=== PATIENT | female | born 1960 | race Caucasian/White ===

== ENCOUNTER → 2017-03-14 | Outpatient (CLI) | payer OTHER ==
--- NOTE | 2017-03-14 12:26 | XR ---
Lumbosacral spine HISTORY: Low back pain, M [age] views of the lumbosacral spine correlated to prior exam 08/26/2011, CT 05/02/2003 Bone mineralization is reduced and stable. There is no evident spondylolysis or spondylolisthesis. Th ere is multilevel spondylosis. Some loss of disc height L3-4. Sclerosis present in the posterior [place] ents of the lower lumbar spine. There are vascular calcifications present. There is an indeterminate calcification present within the pelvis which is only partially visualized and may measure as great a s 5-6 cm correlating to a fibroid calcification. IMPRESSION: Degenerative disc disease and osteopenia. Facet arthropathy. Additional findings above.
== END | disposition home or self-care (01) ==
LOC: RADXRMAIN 09:49
PROVIDERS: ATTEND Family Medicine
DX: M51.37 Other intervertebral disc degeneration, lumbosacral region (principal); M85.80 Other specified disorders of bone density and structure, unspecified site; M46.07 Spinal enthesopathy, lumbosacral region
CPT/HCPCS: 72110

== ENCOUNTER → 2017-05-04 | Outpatient (CLI) | payer BC ==
--- NOTE | 2017-05-04 20:30 | MR ---
EXAMINATION TYPE: MR lumbar spine wo con DATE OF EXAM: 05/04/2017 COMPARISON: Lumbar spine x-ray March 14, 2017 and older lumbar spine x-ray August 26, 2011. HISTORY: LOW BACK PAIN per order. Back pain for about 6 months per patient. TECHNIQUE: Multiplanar, multisequence imaging of the lumbar spine is performed without IV contrast. FINDINGS: On survey imaged there is oval well-circumscribed lesion with rim low intensity corresponds to calcified left pelvic mass of uncertain etiology not significantly changed from 2012 radiographs suggests it is benign. Clinical correlation advised. Sagittal images of the lumbar spine show vertebral body heights and alignment to appear satisfactory. Multilevel small Schmorl nodes are seen. Multilevel disc desiccation is present but disc space heigh ts are fairly well-maintained. No large posterior disc herniations are seen on sagittal images The c onus medullaris is normal in position and signal ending at T12-L1 disc space level. There is overall heterogeneity with mild to moderate multilevel anterior spurring. Axial images at the T12-L1 and L1-L2 levels shows mild facet degenerative changes bilaterally otherwi se is felt within normal limits. Axial images at L2-L3 level shows broad-based posterior disc protrusion and mild facet degenerative c hanges and ligamentum flavum hypertrophy, there is some effacement the posterior lateral thecal sac. Bilateral neural foramina remain patent. Axial images at L3-L4 level show broad-based posterior disc protrusion mildly effacing anterior theca l sac. There is mild facet degenerative changes and ligament flavum hypertrophy effacing the posterio r lateral thecal sac. Bilateral neural foramina remain patent. Axial images at L4-L5 level show mild to moderate facet degenerative changes and ligamentum flavum hy pertrophy. There is broad disc bulge with central disc protrusion component minimally effacing anteri or thecal sac. Bilateral neural foramina are patent. Axial images at L5-S1 level show mild facet degenerative changes bilaterally. Spinal canal is preserv ed. Bilateral neural foramina are patent. No suspicious retroperitoneal findings are seen. Paraspinal muscle bulk is maintained. IMPRESSION: Multilevel degenerative changes in the lumbar spine most prominent in mid to lower lumbar levels with further details as noted in body of report..
== END | disposition home or self-care (01) ==
LOC: RADMRIMAIN 16:58
PROVIDERS: ATTEND Family Medicine
DX: M47.817 Spondylosis without myelopathy or radiculopathy, lumbosacral region (principal)
CPT/HCPCS: 72148

== ENCOUNTER → 2017-06-29 | Outpatient (CLI) | payer BC, OTHER ==
[2017-06-28 16:00] VITALS: BMI 31.8
[2017-06-29 12:21] VITALS: BP 142/93; PULSE 90; RESP 16
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
== END ==
LOC: PNWHC3 11:32
PROVIDERS: ATTEND Anesthesiology
DX: M51.36 Other intervertebral disc degeneration, lumbar region (principal); M47.816 Spondylosis without myelopathy or radiculopathy, lumbar region; M46.86 Other specified inflammatory spondylopathies, lumbar region; E78.5 Hyperlipidemia, unspecified; F17.200 Nicotine dependence, unspecified, uncomplicated; Z79.899 Other long term (current) drug therapy; Z88.8 Allergy status to other drugs, medicaments and biological substances
CPT/HCPCS: 99211

== ENCOUNTER 2017-10-05 07:43 | Day surgery (SDC) | payer BC, OTHER ==
[2017-09-26 15:50] VITALS: BMI 31.3
[~2017-10-05 07:43] MED LIST: LACTATED RINGERS 1,000 ML IV SCH
[2017-10-05 07:51] VITALS: RESP 16; TEMP 96.8
[2017-10-05] MEDS ORDERED: LIDOCAINE 1% 20 ML VIAL (10MG/ML) FOR IV START INTRADERMA ONE (08:02)
--- NOTE | 2017-10-05 09:14 | P.PCN ---
Date of Procedure: 10/05/17 Procedure(s) Performed: PREOPERATIVE DIAGNOSIS : 1- Lumbar spondylosis with Facet Arthropathy without myelopathy . POSTOPERATIVE DIAGNOSIS: 1- Lumbar spondylosis with Facet Arthropathy without myelopathy . PROCEDURE: Diagnostic bilateral L3 -4 , L4 -5 , and L5-S1 medial branch block under fluoroscopy ANESTHESIA: Local with 1% lidocaine 6 ml , moderate sedation with intravenous Versed 2 mg and Fentanyl 100 mcg. EBL: Minimal COMPLICATION: None. IV FLUIDS: 100 mL of normal saline. PROCEDURE INDICATION: Chronic low back pain secondary to Facet arthropathy unresponsive to conservative treatment. PROCEDURE DESCRIPTION: the patient was seen and identified in the preop holding area , risks and benefits and possible complications of the procedure and alternative were discussed with the patient, and the patient agreed to proceed with the procedure and signed the consent IV was started and vital signs monitored during the procedure and fluoroscopy was used to maximize the benefit and accuracy of the needle placement, and sedation was given to decrease patient anxiety, patient was taken to the procedure room and placed in prone position vital signs monitored in the back prepped with chlorhexidine X3 then under strict sterile technique using a right oblique fluoroscopy ,the junction of the transverse process and the superior articulating process of the right L3- 4 , L4- 5, and L5-S1 vertebra which corresponding to the fluoroscopy image of the eye of the Gerald dog on the block side for the medial branches and subsequently , after local infiltration of skin and subcu tissuies with lidocaine 1% one mL at each level ,then 22- gauge Quincke-type needles , 3 needle was used , each one of them placed at the junction of the base of the transverse process and the superior articular process at the appropriate level, and the needle was advanced until the periosteum contacted, needle placement confirmed with AP oblique and lateral view and after appropriate needle placement confirmed, and after negative aspiration for heme and CSF and there was no paresthesia 1-1/2 mL of Marcaine 0.5% mixed with 40 mg Kenalog , then half mL injected at each level after negative aspiration the needle subsequently removed and the same procedure repeated for the left side at left side at L3-4, L4- 5 and L5-S1 levels. At the end of the procedure and the needles removed and a bandage applied after the skin was cleaned the cleaning solution patient taken to recovery room in stable condition and monitors in the recovery room for 20-30 minutes and discharged home in stable condition after discharge criteria met and patient will follow up with the pain clinic in 2-4 weeks
[2017-10-05] MEDS ORDERED: IV FLUID CONTINUATION 1,000 ML IV ONE (09:18)
--- NOTE | 2017-10-05 09:21 | FL ---
EXAMINATION TYPE: FL guided pain mgmt statistic DATE OF EXAM: 10/05/2017 HISTORY: Flouroscopy time 12 seconds of fluoroscopy provided. IMPRESSION: 1. Fluoroscopy time.
[2017-10-05 09:32] VITALS: BP 123/83; PULSE 78
== END 2017-10-05 09:44 | disposition home or self-care (01) ==
LOC: ORPAIN 07:43
PROVIDERS: ATTEND Specialist
DX: G89.29 Other chronic pain (principal); M47.816 Spondylosis without myelopathy or radiculopathy, lumbar region; Z88.3 Allergy status to other anti-infective agents; Z88.8 Allergy status to other drugs, medicaments and biological substances
CPT/HCPCS: 99152

== ENCOUNTER → 2018-01-08 | Outpatient (CLI) | payer BC, OTHER ==
--- NOTE | 2018-01-08 14:14 | XR ---
Thoracic spine HISTORY: Back pain 3 views of the thoracic spine, correlation to CT scan 08/24/2009 and There is multilevel spondylosis. Thoracic vertebral bodies show preserved alignment. Bone mineralizat ion is reduced. There may be some loss of height at T7. No evident retropulsion, posterior extension of endplate at T10-11 level causes some spinal stenosis on prior CT. Loss of disc height present at t he intervertebral levels. There is a spinal curvature. IMPRESSION: Osteopenia, degenerative disc disease, mild spinal curvature. May be some loss of vertebr al body height is described, bone scan or MRI, CT may be of benefit.
== END | disposition home or self-care (01) ==
LOC: RADXRMAIN 13:37
PROVIDERS: ATTEND Family Medicine
DX: M51.34 Other intervertebral disc degeneration, thoracic region (principal); M85.80 Other specified disorders of bone density and structure, unspecified site
CPT/HCPCS: 72072

== ENCOUNTER 2018-01-31 22:10 | Emergency (ER) | payer BC, OTHER ==
--- NOTE | 2018-01-31 23:28 | ED ---
Upper Extremity HPI - General Chief Complaint: Extremity Injury, Upper Stated Complaint: rt shoulder pain Time Seen by Provider: 01/31/18 22:39 Source: patient Mode of arrival: ambulatory Limitations: no limitations - History of Present Illness Initial Comments: This patient is 57-year-old woman who presents to be evaluated for right shoulder pain. She states that she was making her bed around 10 AM when she felt she pulled a muscle in her shoulder. She states she had thrown the blanket in the air, and then experienced pain and she indicates the right trapezius area. She states over the course the day it has become very tight and she has pain which tries to move her arm. No weakness or numbness to the right arm. Complaint: Injury to:: right, shoulder Onset/Timin -: hour(s) Other Extremity Injury: Shoulder: Right Other Injuries: none Handedness: right Place: home Improves With: immobilization Worsens With: movement of extremity Context: other Associated Symptoms: denies other symptoms - Related Data Home Medications Medication Instructions Recorded Confirmed Ibuprofen [Motrin] 600 mg PO Q8HR PRN 04/18/15 01/31/18 Levothyroxine Sodium [Synthroid] 175 mcg PO MOTUWETHFRSA 04/18/15 01/31/18 HYDROcodone/APAP 7.5-325MG [[place] 1 tab PO Q4H PRN 06/28/17 01/31/18 7.5-325] Cyclobenzaprine [Flexeril] 10 mg PO HS PRN 07/28/17 01/31/18 Simvastatin [Zocor] 40 mg PO HS 01/31/18 01/31/18 Ubidecarenone [Co Q-10] 100 mg PO HS 01/31/18 01/31/18 Previous Rx's Medication Instructions Recorded Cyclobenzaprine [Flexeril] 10 mg PO TID #15 tab 01/31/18 Ibuprofen [Motrin] 600 mg PO Q8HR PRN #20 tab 01/31/18 Allergies Allergy/AdvReac Type Severity Reaction Status Date / Time mupirocin [From Bactroban] Allergy Rash/Hives Verified 01/31/18 22:35 Review of Systems ROS Statement: Those systems with pertinent positive or pertinent negative responses have been documented in the HPI. ROS Other: All systems not noted in ROS Statement are negative. Constitutional: Denies: fever, chills, weakness Respiratory: Denies: cough, dyspnea Cardiovascular: Denies: chest pain Musculoskeletal: Reports: arthralgia, myalgia. Denies: back pain Skin: Denies: rash Neurological: Denies: weakness, numbness, paresthesias Past Medical History Past Medical History: Cancer, Hyperlipidemia, Thyroid Disorder Additional Past Medical History / Comment(s): pain to neck and back,carpel tunnel,CA cervix-no chemo or rad History of Any Multi-Drug Resistant Organisms: None Reported Past Surgical History: Tubal Ligation Additional Past Surgical History / Comment(s): carpal tunnel,partial thyroidectomy,hysteroscopy Past Anesthesia/Blood Transfusion Reactions: No Reported Reaction Past Psychological History: No Psychological Hx Reported Smoking Status: Current every day smoker - Past Family History Mother Family Medical History: Cancer Additional Family Medical History / Comment(s): skin Father Family Medical History: Cancer Additional Family Medical History / Comment(s): skin General Exam Limitations: no limitations General appearance: alert, in no apparent distress Neck exam: Present: normal inspection, full ROM. Absent: tenderness, meningismus Cardiovascular Exam: Present: other (Radial pulses and capillary refill normal) Extremities exam: Present: normal inspection, normal capillary refill Right Shoulder Exam: Present: tenderness, other (Patient has tenderness and increased tone to the right trapezius muscle. Palpation here reproduces her pain. Range of motion which stretches the trapezius does reproduce the pain. No bony tenderness or deformity). Absent: swelling, abrasion, laceration, ecchymosis, deformity, crepitus, dislocation Upper Arm exam: Present: normal inspection, full ROM. Absent: tenderness, swelling Elbow exam: Present: normal inspection, full ROM. Absent: tenderness, swelling Forearm Wrist exam: Present: normal inspection, full ROM. Absent: tenderness, swelling Hand Wrist exam: Present: normal inspection, full ROM. Absent: tenderness, swelling Neurosensory exam: Present: radial nerve intact, ulnar nerve intact, median nerve intact Vascular: Absent: vascular compromise Back exam: Absent: CVA tenderness (R), CVA tenderness (L), vertebral tenderness Neurological exam: Present: alert Skin exam: Present: warm, dry, intact, normal color. Absent: rash Course Vital Signs 01/31/18 22:22 Temperature 98.3 F Pulse Rate 84 Respiratory 20 Rate Blood Pressure 108/78 O2 Sat by Pulse 98 Oximetry Disposition Clinical Impression: Muscle strain Disposition: HOME SELF-CARE Condition: Good Prescriptions: Cyclobenzaprine [Flexeril] 10 mg PO TID #15 tab Ibuprofen [Motrin] 600 mg PO Q8HR PRN #20 tab PRN Reason: Pain Is patient prescribed a controlled substance at d/c from ED?: No Referrals: Jacob Santamaria DO [Primary Care Provider] - 1-2 days
--- NOTE | 2018-01-31 23:34 | XR ---
EXAMINATION TYPE: XR shoulder complete RT DATE OF EXAM: 01/31/2018 COMPARISON: NONE HISTORY: Right shoulder pain TECHNIQUE: 3 views FINDINGS: I see no fracture nor dislocation. Joint spaces are normal. There are no pathologic calcifi cations. IMPRESSION: Negative right shoulder exam.
[2018-01-31 23:43] VITALS: BP 113/57; PULSE 86; RESP 16; TEMP 97.6
== END 2018-01-31 23:43 | disposition home or self-care (01) ==
LOC: EC 22:10
DX: S46.911A Strain of unspecified muscle, fascia and tendon at shoulder and upper arm level, right arm, initial encounter (principal); E78.5 Hyperlipidemia, unspecified; E07.9 Disorder of thyroid, unspecified; F17.200 Nicotine dependence, unspecified, uncomplicated; Z85.42 Personal history of malignant neoplasm of other parts of uterus; Z79.899 Other long term (current) drug therapy; Z88.8 Allergy status to other drugs, medicaments and biological substances; X50.9XXA Other and unspecified overexertion or strenuous movements or postures, initial encounter
CPT/HCPCS: 99283

== ENCOUNTER → 2018-02-27 | Outpatient (CLI) | payer BC, OTHER ==
--- NOTE | 2018-02-27 15:37 | XR ---
Right shoulder and right clavicle HISTORY: Pain 3 views of the right shoulder, 2 views of the right clavicle submitted and correlated to prior right shoulder 01/31/2018 There is no significant change. Arthropathy present at the acromioclavicular joint. Right lung apex a s visualized is normal. There is no fracture or dislocation. IMPRESSION: Acromioclavicular joint arthropathy.
== END | disposition home or self-care (01) ==
LOC: RADXRMAIN 13:51
PROVIDERS: ATTEND Family Medicine
DX: M19.011 Primary osteoarthritis, right shoulder (principal)

== ENCOUNTER → 2018-05-10 | Outpatient (CLI) | payer BC, OTHER ==
--- NOTE | 2018-05-11 11:28 | XR ---
Cervical spine HISTORY: Neck pain 5 views of the cervical spine and 6 images Comparison cervical spine CT 08/26/2011 Spondylosis is present at C5-6-6 7 with associated loss of disc height. Cervical vertebral bodies gabe w preserved height, alignment, and bone mineralization. Facet arthropathy changes are present. Latera l extension of endplate disc complex bilaterally at C5-6, C6-7 on the right cause foraminal encroachm ent. Patient is edentulous. Prevertebral soft tissues show some carotid artery calcification. IMPRESSION: Degenerative disc disease. Cervical MRI or CT may be of benefit.
== END | disposition home or self-care (01) ==
LOC: RADXRMAIN 15:54
PROVIDERS: ATTEND Family Medicine
DX: M51.36 Other intervertebral disc degeneration, lumbar region (principal)
CPT/HCPCS: 72050

== ENCOUNTER 2018-10-06 23:07 | Emergency (ER) | payer BC, OTHER ==
--- NOTE | 2018-10-06 23:33 | ED ---
Fall HPI - General Chief Complaint: Fall Stated Complaint: FALL,ARM PAIN Time Seen by Provider: 10/06/18 23:17 Source: patient Mode of arrival: ambulatory - History of Present Illness Initial Comments: Jimena is a pleasant 58-year-old female presents the emergency department today for evaluation of left wrist, left elbow left-sided rib pain. Patient reports that last Monday she had a slip and fall on the ice in which she struck her left elbow and left wrist and hit the left side of her ribs. Patient reports that Monday she again slipped and fell on the ice falling onto her left side. Patient reports that she's been taking her home dose of [place] for her chronic pain but continues to have pain in her left ribs. Patient reports that today she noticed some swelling over her left rib and was concerned she may have a rib fracture she states she came to the ER to make sure there is nothing broken that would puncture her lungs. - Related Data Home Medications Medication Instructions Recorded Confirmed Ibuprofen [Motrin] 600 mg PO Q8HR PRN 04/18/15 10/06/18 Levothyroxine Sodium [Synthroid] 175 mcg PO MOTUWETHFRSA 04/18/15 10/06/18 HYDROcodone/APAP 7.5-325MG [[place] 1 tab PO Q6H PRN 06/28/17 10/06/18 7.5-325] Simvastatin [Zocor] 40 mg PO HS 01/31/18 10/06/18 Ubidecarenone [Co Q-10] 100 mg PO HS 01/31/18 10/06/18 Albuterol Inhaler [Ventolin Hfa 2 puff INHALATION RT-Q6H PRN 10/06/18 10/06/18 Inhaler] Baclofen [Lioresal] 10 mg PO TID 10/06/18 10/06/18 FLUoxetine HCL [PROzac] 10 mg PO DAILY 10/06/18 10/06/18 Previous Rx's Medication Instructions Recorded Lidocaine 5% Patch [Lidoderm] 1 patch TOPICAL DAILY #30 patch 10/07/18 Allergies Allergy/AdvReac Type Severity Reaction Status Date / Time mupirocin [From Bactroban] Allergy Rash/Hives Verified 10/06/18 23:31 Review of Systems ROS Statement: Those systems with pertinent positive or pertinent negative responses have been documented in the HPI. ROS Other: All systems not noted in ROS Statement are negative. Past Medical History Past Medical History: Cancer, Hyperlipidemia, Thyroid Disorder Additional Past Medical History / Comment(s): pain to neck and back,carpel tunnel,CA cervix-no chemo or rad History of Any Multi-Drug Resistant Organisms: None Reported Past Surgical History: Tubal Ligation Additional Past Surgical History / Comment(s): carpal tunnel,partial thyroidectomy,hysteroscopy Past Anesthesia/Blood Transfusion Reactions: No Reported Reaction Past Psychological History: No Psychological Hx Reported Smoking Status: Current every day smoker Past Alcohol Use History: None Reported Past Drug Use History: None Reported - Past Family History Mother Family Medical History: Cancer Additional Family Medical History / Comment(s): skin Father Family Medical History: Cancer Additional Family Medical History / Comment(s): skin General Exam - General Exam Comments Initial Comments: Physical Exam GENERAL: Patient is well-developed and well-nourished. Patient is nontoxic and well- hydrated and is in no distress. HENT: Normocephalic, Atraumatic. EYES: PERRL, EOMI PULMONARY: Unlabored respirations. No audible rales rhonchi or wheezing was noted. CARDIOVASCULAR: There is a regular rate and rhythm without any murmurs gallops or rubs. ABDOMEN: Soft and nontender with normal bowel sounds. SKIN: Skin is clear with no lesions or rashes and otherwise unremarkable. contusion over left elbow : Deferred NEUROLOGIC: Patient is alert and oriented x3. Moving all extremities spontaneously MUSCULOSKELETAL: Normal extremities with adequate strength and full range of motion. No lower extremity swelling or edema. No calf tenderness. PSYCHIATRIC: Normal psychiatric evaluation. Limitations: no limitations Limitations: no limitations Course Vital Signs 10/06/18 23:12 Temperature 98.2 F Pulse Rate 90 Respiratory 18 Rate Blood Pressure 150/79 O2 Sat by Pulse 98 Oximetry Medical Decision Making - Medical Decision Making patient was seen and evaluated history was obtained from the patient Patient with 2 falls earlier in the week with persistent pain in her left elbow wrist as well as pain in her left ribs Physical exam reveals bruising over the left elbow, full range of motion of the elbow and wrist normal strength and normal sensation X-rays were orderedAnd revealed no acute fractures Lidoderm patch was applied Patient with bruising will be prescribed Lidoderm patches. All questions pertaining care were answered return parameters discussed patient discharged home in stable condition Disposition Clinical Impression: Fall Disposition: HOME SELF-CARE Condition: Stable Instructions (If sedation given, give patient instructions): Fall Prevention for Older Adults (ED) Prescriptions: Lidocaine 5% Patch [Lidoderm] 1 patch TOPICAL DAILY #30 patch Is patient prescribed a controlled substance at d/c from ED?: No Referrals: Jacob Santamaria DO [Primary Care Provider] - 1-2 days
[2018-10-06] MEDS ORDERED: LIDOCAINE 5% PATCH TOPICAL STA (23:41)
--- NOTE | 2018-10-07 00:01 | XR ---
EXAM: XR Left Ribs, 2 Views CLINICAL HISTORY: ITS.REASON XR Reason: fall on ice, pain TECHNIQUE: Frontal and oblique views of the left ribs. COMPARISON: No relevant prior studies available. FINDINGS: Lungs: Unremarkable as visualized. No consolidation. Pleural space: Unremarkable. No pneumothorax. Bones/joints: Unremarkable. No acute fracture. IMPRESSION: Normal left rib x-rays.
--- NOTE | 2018-10-07 00:10 | XR ---
EXAM: XR Left Wrist Complete, 3 or More Views CLINICAL HISTORY: ITS.REASON XR Reason: fall on ice, pain TECHNIQUE: Frontal, lateral and oblique views of the left wrist. COMPARISON: No relevant prior studies available. FINDINGS: Bones/joints: Positive ulnar variance. No radiographic changes related to ulnolunate abutment. No acute or healing fracture or malalignment. Joint spaces are maintained otherwise. Soft tissues: No focal soft tissue abnormalities. No radiopaque foreign body. IMPRESSION: No acute or healing fracture or malalignment.
--- NOTE | 2018-10-07 00:11 | XR ---
EXAM: XR Left Elbow Complete, 3 or More Views CLINICAL HISTORY: ITS.REASON XR Reason: fall on ice, pain TECHNIQUE: Frontal, lateral and oblique views of the left elbow. COMPARISON: No relevant prior studies available. FINDINGS: Bones/joints: Unremarkable. No acute fracture. No dislocation. Soft tissues: Unremarkable. IMPRESSION: Normal left elbow x-rays.
[2018-10-07 01:10] VITALS: BP 122/75; PULSE 74; RESP 16; TEMP 97.9
== END 2018-10-07 01:08 | disposition home or self-care (01) ==
LOC: EC 23:07
DX: S50.02XA Contusion of left elbow, initial encounter (principal); R22.2 Localized swelling, mass and lump, trunk; M25.532 Pain in left wrist; R07.81 Pleurodynia; E78.5 Hyperlipidemia, unspecified; E07.9 Disorder of thyroid, unspecified; G89.29 Other chronic pain; F17.200 Nicotine dependence, unspecified, uncomplicated; Z88.1 Allergy status to other antibiotic agents; Z79.890 Hormone replacement therapy; Z79.891 Long term (current) use of opiate analgesic; Z79.899 Other long term (current) drug therapy; Z85.41 Personal history of malignant neoplasm of cervix uteri; Z90.710 Acquired absence of both cervix and uterus; W00.0XXA Fall on same level due to ice and snow, initial encounter
CPT/HCPCS: 99283

== ENCOUNTER → 2018-10-15 | Outpatient (CLI) | payer BC, OTHER ==
--- NOTE | 2018-10-16 09:24 | MM ---
Reason for exam: screening (asymptomatic). Last mammogram was performed 2 years and 7 months ago. History: Patient is postmenopausal and has history of other cancer at age 40. Family history of breast cancer in paternal aunt and breast cancer in maternal aunt. Physical Findings: A clinical breast exam by your physician is recommended on an annual basis and results should be correlated with mammographic findings. MG Screening Mammo w CAD Bilateral CC and MLO view(s) were taken. Prior study comparison: March 08, 2016, bilateral MG screening mammo w CAD. December 22, 2008, bilateral digital screening mammogram. The breast tissue is heterogeneously dense. This may lower the sensitivity of mammography. There are benign appearing round calcifications in the right breast. There is no discrete abnormality. ASSESSMENT: Benign, BI-RAD 2 RECOMMENDATION: Routine screening mammogram of both breasts in 1 year.
== END | disposition home or self-care (01) ==
LOC: RADMAMWWP 10:50
PROVIDERS: ATTEND Family Medicine
DX: Z12.31 Encounter for screening mammogram for malignant neoplasm of breast (principal)
CPT/HCPCS: 77067

== ENCOUNTER 2018-12-26 07:36 | Day surgery (SDC) | payer BC, OTHER ==
[2018-12-24 16:05] VITALS: BMI 32.3
[~2018-12-26 07:36] MED LIST changes: +LIDOCAINE 1% 20 ML VIAL (10MG/ML) FOR IV START INTRADERMA PRN
--- NOTE | 2018-12-26 07:40 | P.GSHP ---
History of Present Illness H&P Date: 12/26/18 CHIEF COMPLAINT: Colon screen HISTORY OF PRESENT ILLNESS: The patient is a 58-year-old female who presents for colon screen. Lower endoscopy was offered for further evaluation and management. PAST MEDICAL HISTORY: Please see list. PAST SURGICAL HISTORY: Please see list. MEDICATIONS: Please see list. ALLERGIES: Please see list. SOCIAL HISTORY: No illicit drug use FAMILY HISTORY: No reports of Crohn disease or ulcerative colitis. REVIEW OF ORGAN SYSTEMS: CONSTITUTIONAL: No reports of fevers or chills. PHYSICAL EXAM: VITAL SIGNS: Stable GENERAL: Well-developed pleasant in no acute distress. HEENT: No scleral icterus. Extraocular movements grossly intact. Moist buccal mucosa. NECK: Supple without lymphadenopathy. CHEST: Unlabored respirations. Equal bilateral excursions. CARDIOVASCULAR: Regular rate and rhythm. Distal 2+ pulses. ABDOMEN: Soft, nontender, nondistended. MUSCULOSKELETAL: No clubbing, cyanosis, or edema. ASSESSMENT: 1. Colon screen. PLAN: 1. Recommend proceeding with a lower endoscopy Past Medical History Past Medical History: Cancer, COPD, Hyperlipidemia, Thyroid Disorder Additional Past Medical History / Comment(s): pain to neck and back,carpal tunnel,CA cervix-no chemo or rad History of Any Multi-Drug Resistant Organisms: None Reported Past Surgical History: Orthopedic Surgery, Tubal Ligation Additional Past Surgical History / Comment(s): debbie carpal tunnel,partial thyroidectomy,hysteroscopy,LEEP Past Anesthesia/Blood Transfusion Reactions: No Reported Reaction Smoking Status: Current every day smoker - Past Family History Mother Family Medical History: Cancer Additional Family Medical History / Comment(s): skin Father Family Medical History: Cancer Additional Family Medical History / Comment(s): skin Medications and Allergies Home Medications Medication Instructions Recorded Confirmed Type Ibuprofen [Motrin] 600 mg PO Q8HR PRN 04/18/15 12/24/18 History Levothyroxine Sodium [Synthroid] 175 mcg PO MOTUWETHFRSA 04/18/15 12/24/18 History HYDROcodone/APAP 7.5-325MG [[place] 1 tab PO Q6H PRN 06/28/17 12/24/18 History 7.5-325] Simvastatin [Zocor] 40 mg PO HS 01/31/18 12/24/18 History Ubidecarenone [Co Q-10] 100 mg PO HS 01/31/18 12/24/18 History Albuterol Inhaler [Ventolin Hfa 2 puff INHALATION RT-Q6H PRN 10/06/18 12/24/18 History Inhaler] Baclofen [Lioresal] 10 mg PO TID PRN 10/06/18 12/24/18 History FLUoxetine HCL [PROzac] 10 mg PO DAILY 10/06/18 12/24/18 History Budesonide-Formot 160-4.5 Mcg 2 puff INHALATION BID PRN 12/24/18 12/24/18 History [Symbicort 160-4.5 Mcg Inhaler] Allergies Allergy/AdvReac Type Severity Reaction Status Date / Time mupirocin [From Bactroban] Allergy Rash/Hives Verified 12/24/18 15:58
[2018-12-26 08:16] VITALS: TEMP 96.9
[2018-12-26] MEDS ORDERED: GLYCOPYRROLATE 0.2 MG/ML 2 ML VIAL ONE (08:51)
[2018-12-26] MEDS ORDERED: PROPOFOL 10 MG/ML 20 ML VIAL IV ONE (08:51)
--- NOTE | 2018-12-26 09:25 | P.PCN ---
Date of Procedure: 12/26/18 Description of Procedure: PREOPERATIVE DIAGNOSIS: Colonoscopy screening, first POSTOPERATIVE DIAGNOSIS: Colonoscopy screening, first Malignant tubulovillous adenoma, hepatic flexure OPERATION: Colonoscopy to the ileocecal valve and appendiceal orifice. Colonoscopy with hot snare polypectomy, hepatic flexure SURGEON: Tarah Bush MD. ANESTHESIA: MAC. INDICATIONS: The patient is a 58 year-old female who presents for her first colonoscopy screening. Benefits and risks were described and informed consent was obtained. DESCRIPTION OF PROCEDURE: The patient had undergone Gatorade, MiraLAX and Dulcolax prep. She had been brought into the operating room and laid in the left lateral decubitus position. After adequate intravenous sedation, the rectum was examined with 2% lidocaine jelly. External hemorrhoids were encountered. The rectal tone was within normal limits. No lesions were palpated in the rectal vault. An Olympus colonoscope was advanced until the ileocecal valve and appendiceal orifice were clearly viewed. The prep was fair with visualization of the mucosal folds. The scope was removed with visualization of each mucosal fold. No scattered diverticulosis was encountered. Large flat tubulovillous adenoma at hepatic flexure, 1.5 cm snare polypectomy. No evidence of focal colitis was found. Retroflexion of the scope demonstrated no internal hemorrhoids. The colon was desufflated. The patient had tolerated the procedure well. Withdrawal time was over 6 minutes. FINDINGS: Aronchick preparation quality scale 2 (1-5) No internal hemorrhoids External hemorrhoids, stage 2 No arteriovenous malformations. No sigmoid diverticulosis Removal of 1 polyp: - Large flat tubulovillous adenoma at hepatic flexure, 1.5 cm snare polypectomy. No focal colitis. RECOMMENDATIONS: High-risk for high risk for malignancy of the hepatic flexure tumor, recommend repeat one year2019 pending biopsy results Plan - Discharge Summary Discharge Rx Participant: No New Discharge Prescriptions: No Action Levothyroxine Sodium [Synthroid] 175 mcg PO MOTUWETHFRSA Ibuprofen [Motrin] 600 mg PO Q8HR PRN PRN Reason: Pain HYDROcodone/APAP 7.5-325MG [[place] 7.5-325] 1 tab PO Q6H PRN PRN Reason: Pain Ubidecarenone [Co Q-10] 100 mg PO HS Simvastatin [Zocor] 40 mg PO HS FLUoxetine HCL [PROzac] 10 mg PO DAILY Baclofen [Lioresal] 10 mg PO TID PRN PRN Reason: Pain Albuterol Inhaler [Ventolin Hfa Inhaler] 2 puff INHALATION RT-Q6H PRN PRN Reason: Shortness Of Breath Budesonide-Formot 160-4.5 Mcg [Symbicort 160-4.5 Mcg Inhaler] 2 puff INHALATION BID PRN PRN Reason: Shortness Of Breath Discharge Medication List Ibuprofen [Motrin] 600 mg PO Q8HR PRN 04/18/15 [History] Levothyroxine Sodium [Synthroid] 175 mcg PO MOTUWETHFRSA 04/18/15 [History] HYDROcodone/APAP 7.5-325MG [[place] 7.5-325] 1 tab PO Q6H PRN 06/28/17 [History] Simvastatin [Zocor] 40 mg PO HS 01/31/18 [History] Ubidecarenone [Co Q-10] 100 mg PO HS 01/31/18 [History] Albuterol Inhaler [Ventolin Hfa Inhaler] 2 puff INHALATION RT-Q6H PRN 10/06/18 [History] Baclofen [Lioresal] 10 mg PO TID PRN 10/06/18 [History] FLUoxetine HCL [PROzac] 10 mg PO DAILY 10/06/18 [History] Budesonide-Formot 160-4.5 Mcg [Symbicort 160-4.5 Mcg Inhaler] 2 puff INHALATION BID PRN 12/24/18 [History] Follow up Appointment(s)/Referral(s): Tarah Bush MD [STAFF PHYSICIAN] - 01/16/19 Patient Instructions/Handouts: Colorectal Polyps (DC) Activity/Diet/Wound Care/Special Instructions: Liquid diet today. Regular diet tomorrow. Repeat colonoscopy 1 year, 2019 Discharge Disposition: HOME SELF-CARE
[2018-12-26 09:38] VITALS: BP 104/69; PULSE 73; RESP 18
== END 2018-12-26 10:17 | disposition home or self-care (01) ==
LOC: ORWHC2ENDO 07:36
PROVIDERS: ATTEND Surgery Plastic and Reconstructive Surgery
DX: Z12.11 Encounter for screening for malignant neoplasm of colon (principal); D12.3 Benign neoplasm of transverse colon; E07.9 Disorder of thyroid, unspecified; E78.5 Hyperlipidemia, unspecified; F17.200 Nicotine dependence, unspecified, uncomplicated; J44.9 Chronic obstructive pulmonary disease, unspecified; K64.4 Residual hemorrhoidal skin tags; Z79.890 Hormone replacement therapy; Z79.899 Other long term (current) drug therapy; Z79.891 Long term (current) use of opiate analgesic; Z79.51 Long term (current) use of inhaled steroids; Z88.1 Allergy status to other antibiotic agents; F32.9 Major depressive disorder, single episode, unspecified
CPT/HCPCS: 88305; 45385; J2704

== ENCOUNTER → 2019-10-18 | Outpatient (CLI) | payer OTHER ==
--- NOTE | 2019-10-18 15:14 | XR ---
Left wrist HISTORY: Left wrist pain 4 views of the left wrist, correlation to prior exam 10/06/2018 Bone mineralization, joint spaces and alignment are maintained. No fracture or dislocation. Mild oste oarthritis present at the carpometacarpal joint of the first digit as on prior exam. Some remodeling present at the radiocarpal joint. IMPRESSION: Mild osteoarthritis. Wrist MRI may be of benefit.
== END | disposition home or self-care (01) ==
LOC: RAD 14:13
PROVIDERS: ATTEND Family Medicine
DX: M19.032 Primary osteoarthritis, left wrist (principal)

== ENCOUNTER → 2021-04-14 | Outpatient (CLI) | payer OTHER ==
[2021-04-14 08:52] VITALS: BP 154/89; PULSE 98; RESP 18; TEMP 99
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
== END ==
LOC: PNWHC3 08:42
PROVIDERS: ATTEND Anesthesiology
DX: G89.29 Other chronic pain (principal); M54.5 Low back pain; M79.18 Myalgia, other site; E78.5 Hyperlipidemia, unspecified; M19.90 Unspecified osteoarthritis, unspecified site; F41.9 Anxiety disorder, unspecified; F17.210 Nicotine dependence, cigarettes, uncomplicated; Z79.890 Hormone replacement therapy; Z79.1 Long term (current) use of non-steroidal anti-inflammatories (NSAID); Z88.8 Allergy status to other drugs, medicaments and biological substances
CPT/HCPCS: 99211

== ENCOUNTER → 2021-04-23 | Outpatient (CLI) | payer OTHER ==
--- NOTE | 2021-04-27 16:16 | MR ---
EXAMINATION TYPE: MR cervical spine wo con DATE OF EXAM: 04/23/2021 COMPARISON: HISTORY: Neck pain, headaches, BUE radiculopathy. CONTRAST: None TECHNIQUE: Multiplanar multiecho imaging on a 3.0 Laura magnet is performed through the cervical spin e. FINDINGS: The craniovertebral junction is normal. Vertebral body alignment is normal. Diffuse disc desiccation is present throughout the cervical spine. C7-T1: No focal disc herniation or significant disc bulge is evident. No spinal canal stenosis or n eural foraminal stenosis is present. C6-7: Broad-based disc bulge is present with mild anterior thecal sac flattening. No AP spinal canal stenosis is present. There is moderate bilateral foraminal narrowing due to uncovertebral joint hyper trophy. C5-6: There is a moderate-sized left paracentral disc herniation with moderate anterior thecal sac co mpression. Cord contact and mild cord deformity is present. Mild to moderate AP spinal canal stenosis is present measuring 0.6 cm posterior to the disc herniation. No spinal cord signal abnormality is e vident. C4-5: There is a small central to right paracentral bulge with mild to moderate anterior thecal sac c ompression. Some cord deformity appears to be present although no cord contact is evident during this exam. Moderate to severe bilateral foraminal stenosis present. C3-4: No focal disc herniation or significant disc bulge is evident. No spinal canal stenosis or abel ral foraminal stenosis is present. C2-3: No focal disc herniation or significant disc bulge is evident. No spinal canal stenosis or abel ral foraminal stenosis is present. IMPRESSIONS: 1. C5-6 Moderate left paracentral disc herniation with moderate anterior thecal sac compression and m ild to moderate cord deformity. Spinal canal stenosis. 2. Small right paracentral disc bulge with mild to moderate thecal sac compression at C4-5. Some cord deformity is present although no cord contact is evident. 3. Broad-based disc bulge with mild thecal sac compression at C6-7. 4. Multilevel moderate to severe bilateral foraminal stenosis
== END | disposition home or self-care (01) ==
LOC: RADMRIMAIN 20:39
PROVIDERS: ATTEND Family Medicine
DX: M48.02 Spinal stenosis, cervical region (principal); M50.123 Cervical disc disorder at C6-C7 level with radiculopathy; M99.71 Connective tissue and disc stenosis of intervertebral foramina of cervical region
CPT/HCPCS: 72141

== ENCOUNTER 2021-11-17 08:46 | Day surgery (SDC) | payer OTHER ==
--- NOTE | 2021-11-15 10:20 | P.HPOR ---
History of Present Illness H&P Date: 11/15/21 Chief Complaint: Right index finger volar soft tissue mass Age: 61 year Height: 5' Weight: 164 lbs BMI: 32.03 kg/m2 Subjective: This is a 61 year old female that presents today for initial evaluation regarding a right index finger lump that has been present for 4 months. The mass is located on the volar surface of the distal portion of the index finger and is painful during pinching movements. She denies any prior injury and denies any recent injury. Physical Examination: RUE: AIN/PIN/Radial/Ulnar/Median motor intact. Radial/Ulnar/Median SILT. 2+/4 Radial/Ulnar pulses palpated. 5/5 APB, 5/5 FDI. Negative Finkelsteins, negative CMC grind, negative Durkan's compression. 3mm x 3mm round mobile soft tissue mass on volar surface of index finger. Imaging: X-Rays of the right index finger demonstrate no acute osseus abnormality. Impression: 1.) Right index finger volar soft tissue mass Plan: Diagnosis and treatment options were discussed with the patient. She would like to have the mass excised since it is causing her pain discomfort. Risks and benefits of surgery including bleeding, infection, damage to surrounding tissue, need for further surgery, recurrence were discussed and the patient wished to go forward with surgery. She will be scheduled for soft tissue mass excision of right index finger in the near future. -Praful Torres DO Orthopedic Hand/Upper Extremity Surgeon Past Medical History Past Medical History: Cancer, Hyperlipidemia, Musculoskeletal Disorder, Osteoarthritis (OA), Thyroid Disorder Additional Past Medical History / Comment(s): Chronic pain to neck and back, carpel tunnel, hx cervical cancer -no chemo or radiation, having MRI 04/23/21, Osteopenia. History of Any Multi-Drug Resistant Organisms: None Reported Past Surgical History: Tubal Ligation Additional Past Surgical History / Comment(s): Carpal tunnel surgey, partial thyroidectomy, hysteroscopy. Past Anesthesia/Blood Transfusion Reactions: No Reported Reaction Past Psychological History: Anxiety Smoking Status: Current every day smoker Past Alcohol Use History: None Reported Additional Past Alcohol Use History / Comment(s): Started smoking at age 14, TRYING TO QUIT, down to 4 cigarettes per day. Past Drug Use History: None Reported - Past Family History Mother Family Medical History: Cancer Additional Family Medical History / Comment(s): Skin Cancer. Father Family Medical History: Cancer Additional Family Medical History / Comment(s): Skin Cancer. Medications and Allergies Home Medications Medication Instructions Recorded Confirmed Type Ibuprofen [Motrin] 600 mg PO Q8HR PRN 04/18/15 04/13/21 History Levothyroxine Sodium [Synthroid] 175 mcg PO DAILY 04/18/15 04/13/21 History Simvastatin [Zocor] 40 mg PO HS 01/31/18 04/13/21 History Ubidecarenone [Co Q-10] 100 mg PO HS 01/31/18 04/13/21 History Albuterol Inhaler (Mhu) [Ventolin 2 puff INHALATION RT-Q6H PRN 10/06/18 04/13/21 History Hfa Inhaler] FLUoxetine HCL [PROzac] 10 mg PO DAILY 10/06/18 04/13/21 History Budesonide-Formot 160-4.5 Mcg 2 puff INHALATION BID PRN 12/24/18 04/13/21 History [Symbicort 160-4.5 Mcg Inhaler] Cholecalciferol [Vitamin D3 (25 50 mcg PO DAILY 04/13/21 04/13/21 History Mcg = 1000 Iu)] Cyclobenzaprine [Flexeril] 5 mg PO TID PRN 30 Days #90 tablet 04/14/21 Rx Meloxicam [Mobic] 7.5 mg PO DAILY 30 Days #30 tab 04/14/21 Rx Allergies Allergy/AdvReac Type Severity Reaction Status Date / Time mupirocin [From Bactroban] Allergy Rash/Hives Verified 04/13/21 11:43 Physical Examination Osteopathic Statement: *. No significant issues noted on an osteopathic structural exam other than those noted in the History and Physical/Consult.
[2021-11-15 15:24] VITALS: BMI 31.8
[~2021-11-17 08:46] MED LIST changes: +CLINDAMYCIN 600 MG/50 ML-D5W 600 MG in DEXTROSE/WATER 1 50ML.BAG IVPB ONE; +DEXAMETHASONE SOD PHOSPHATE 4 MG/ML 1 ML VIAL IV ONE; +HYDROmorphone 0.5 MG/0.5 ML SYRINGE IVP PRN; -LIDOCAINE 1% 20 ML VIAL (10MG/ML) FOR IV START INTRADERMA PRN; +ONDANSETRON 4 MG/2 ML VIAL IVP ONE
[2021-11-17 09:19] VITALS: RESP 16; TEMP 97.1
[2021-11-17] MEDS ORDERED: PROPOFOL 10 MG/ML 20 ML VIAL IV ONE (10:30)
[2021-11-17] MEDS ORDERED: MIDAZOLAM 2 MG/2 ML VIAL ONE (10:30)
[2021-11-17] MEDS ORDERED: fentaNYL (PF) 50 MCG/ML 2 ML AMP ONE (10:30)
[2021-11-17] MEDS ORDERED: BUPIVACAINE (PF) 0.5% 30 ML VIAL SQ ONE (10:46)
[2021-11-17] MEDS ORDERED: LIDOCAINE 1% (PF) 10 MG/ML (30 ML SDV) SQ ONE (10:46)
[2021-11-17 11:17] VITALS: BP 135/85; PULSE 79
--- NOTE | 2021-11-17 19:32 | P.OP ---
Date of Procedure: 11/17/21 Preoperative Diagnosis: 1.) Right index finger volar soft tissue mass Postoperative Diagnosis: Same Procedure(s) Performed: Right index finger volar soft tissue mass excision Anesthesia: MAC Surgeon: Praful Torres Blend Technician #1: Ke Schultz Estimated Blood Loss (ml): 0 Pathology: other (Right index finger volar soft tissue mass) Condition: stable Disposition: PACU Description of Procedure: This is a 61 year old [place] with a history of a right index finger soft tissue mass that presents today for excision due to failing conservative treatment. Risks and benefits of surgery were discussed with the patient including bleeding, damage to surrounding tissue, infection, need for further surgery as well as risks of anesthesia including pulmonary embolism and even and the patient wished to proceed with surgical intervention. The patient was seen in the pre-operative area by myself. Consent and H&P were completed and updated. The correct extremity was marked in the pre-operative area by myself and all other questions were answered. Operative Narrative: The patient was brought to the operating room by the department of anesthesia. They remained on the portable stretcher and a rolling hand table was brought to the side of the operative extremity. Pre-operative time out was performed indicating the correct patient, procedure and laterality. All in the room agreed. Pre-operative antibiotics were given prior to skin incision. The patient was then drifted off to sleep by the department of anesthesia. A nonsterile tourniquet was then applied to the operative extremity and the right upper extremity was then prepped and draped in normal sterile fashion. The operative extremity was the exsanguinated with an esmarch bandage and the tourniquet was inflated to 250mmHg. 15 blade scalpel was used to make an oblique incision just distal to the DIP joint crease in a Brunners fashion. Upon incision of skin a 3mm round white mass was able to be expressed from the subcutaneous tissues. Specimen was collected a nd sent for pathology. Irrigation was performed and skin closure was performed with 4-0 nylon suture. Digital block was performed with 10cc of 0.5% bupivicaine and a soft bandage consisting of 4x4 and coban. Tourniquet was released and the finger had immediate perfusion. The patient was then woken by the department of anesthesia and transferred to PACU in stable condition. Praful Torres D.O. Orthopedic Hand/Upper Extremity Surgeon
== END 2021-11-17 11:30 | disposition home or self-care (01) ==
LOC: OR 08:46
PROVIDERS: ATTEND Orthopaedic Surgery Hand Surgery
DX: L72.0 Epidermal cyst (principal); E78.5 Hyperlipidemia, unspecified; M19.90 Unspecified osteoarthritis, unspecified site; E07.9 Disorder of thyroid, unspecified; J44.9 Chronic obstructive pulmonary disease, unspecified; G89.29 Other chronic pain; M54.2 Cervicalgia; M54.9 Dorsalgia, unspecified; Z85.41 Personal history of malignant neoplasm of cervix uteri; F17.210 Nicotine dependence, cigarettes, uncomplicated; Z97.2 Presence of dental prosthetic device (complete) (partial); M85.80 Other specified disorders of bone density and structure, unspecified site; Z98.51 Tubal ligation status; E89.0 Postprocedural hypothyroidism; F41.9 Anxiety disorder, unspecified; Z80.8 Family history of malignant neoplasm of other organs or systems; Z79.890 Hormone replacement therapy; Z79.1 Long term (current) use of non-steroidal anti-inflammatories (NSAID); Z79.51 Long term (current) use of inhaled steroids; Z79.899 Other long term (current) drug therapy; Z88.3 Allergy status to other anti-infective agents
CPT/HCPCS: 88304; 11420; J2250; J1100; J2405; J2001; J3010; J2704

== ENCOUNTER 2023-01-28 22:57 | Emergency (ER) | payer MEDICARE, OTHER ==
[2023-01-29] MEDS ORDERED: AMPICILLIN-SULBACTAM 3 GM in SODIUM CHLORIDE 0.9% 100 ML IVPB STA (00:58)
[2023-01-29 01:11] LABS: Basophils # (A) 0.1 k/uL (0-0.2); Basophils % (A) 0 %; Eosinophils # (A) 0.2 k/uL (0-0.7); Eosinophils % (A) 2 %; HCT 40.9 % (34.0-46.0); HGB 13.6 gm/dL (11.4-16.0); Lymphocytes # (A) 2.1 k/uL (1.0-4.8); Lymphocytes % (A) 19 %; MCH 30.3 pg (25.0-35.0); MCHC 33.3 g/dL (31.0-37.0); MCV 91.2 fL (80.0-100.0); Mean Platelet Volume 7.8; Monocytes # (A) 0.5 k/uL (0-1.0); Monocytes % (A) 5 %; Neutrophils # (A) 8.1 k/uL (1.3-7.7); Neutrophils % (A) 72 %; Platelet Count 314 k/uL (150-450); RBC 4.49 m/uL (3.80-5.40); RDW 13.6 % (11.5-15.5); WBC 11.2 k/uL (3.8-10.6)
[2023-01-29] MEDS ORDERED: DIPH,PERTUS(ACELL)TETVAC-LF 0.5 ML VIAL IM ONE (01:13)
--- NOTE | 2023-01-29 01:17 | ED ---
Animal Bite HPI - General Chief Complaint: Animal Bite Stated Complaint: Dog bite on left leg, red, swollen Time Seen by Provider: 01/29/23 00:50 Source: patient, RN notes reviewed Mode of arrival: wheelchair Limitations: no limitations - History of Present Illness Initial Comments: This is a 62-year-old female who presents to the emergency department for a dog bite to the left thigh. States that her own dog bit her 4 days ago. Her dog is a hound/boxer mix and it was fighting with her smaller dog over a bone. She tried to intervene, causing the dog to bite her. She has since started to develop increasing pain and redness to the site. She's been applying antibiotic ointment over the wound. She has had blood draining from several sites. She landeros s not noticed any purulent discharge. Also denies any fevers. The pain has started to increase and it is worse when she tries to ambulate. Unsure when her last tetanus vaccine was. Her dog does have its rabies vaccine. Denies any fevers, chills, sore throat, cough, dyspnea, chest pain, palpitations, abdominal pain, nausea, vomiting, diarrhea, back pain, or headaches. MD Complaint: animal bite Onset/Timin -: days(s) Left: Thigh Animal: dog Description: household pet - Related Data Home Medications Medication Instructions Recorded Confirmed Ibuprofen [Motrin] 600 mg PO Q8HR PRN 04/18/15 11/15/21 Levothyroxine Sodium [Synthroid] 150 mcg PO SUMOWEFR 04/18/15 11/17/21 Simvastatin [Zocor] 40 mg PO HS 01/31/18 11/17/21 Ubidecarenone [Co Q-10] 100 mg PO HS 01/31/18 11/15/21 Albuterol Inhaler [Ventolin Hfa 2 puff INHALATION RT-Q6H PRN 10/06/18 11/17/21 Inhaler] Budesonide-Formot 160-4.5 Mcg 2 puff INHALATION BID PRN 12/24/18 11/17/21 [Symbicort 160-4.5 Mcg Inhaler] Cholecalciferol [Vitamin D3 (25 125 mcg PO DAILY 04/13/21 11/15/21 Mcg = 1000 Iu)] Calcium Carbonate [Calcium] 600 mg PO DAILY 11/15/21 11/15/21 Desvenlafaxine [Pristiq ER] 100 mg PO QAM 11/15/21 11/17/21 HYDROcodone/APAP 7.5-325MG [Oliver 1 tab PO Q8H PRN 11/15/21 11/17/21 7.5-325] Levothyroxine Sodium [Synthroid] 75 mcg PO TUTHSA 11/15/21 11/17/21 Umeclidinium [place] [Incruse 1 puff INHALATION QAM 11/15/21 11/17/21 Ellipta] tiZANidine HCL 4 mg PO BID PRN 11/15/21 11/17/21 Previous Rx's Medication Instructions Recorded Amoxic-Pot Clav 875-125Mg 1 tab PO Q12HR 10 Days #20 tab 01/29/23 [Augmentin 875-125] Allergies Allergy/AdvReac Type Severity Reaction Status Date / Time mupirocin [From Bactroban] Allergy Rash/Hives Verified 01/28/23 23:42 Review of Systems ROS Statement: Those systems with pertinent positive or pertinent negative responses have been documented in the HPI. ROS Other: All systems not noted in ROS Statement are negative. Past Medical History Past Medical History: Cancer, Hyperlipidemia, Musculoskeletal Disorder, Osteoarthritis (OA), Thyroid Disorder Additional Past Medical History / Comment(s): Chronic pain to neck and back, carpel tunnel, hx cervical cancer -no chemo or radiation, having MRI 04/23/21, Osteopenia. History of Any Multi-Drug Resistant Organisms: None Reported Past Surgical History: Tubal Ligation Additional Past Surgical History / Comment(s): Carpal tunnel surgey, partial thyroidectomy, hysteroscopy. Past Anesthesia/Blood Transfusion Reactions: No Reported Reaction Past Psychological History: Anxiety Smoking Status: Current every day smoker Past Alcohol Use History: None Reported Past Drug Use History: None Reported - Past Family History Mother Family Medical History: Cancer Additional Family Medical History / Comment(s): Skin Cancer. Father Family Medical History: Cancer Additional Family Medical History / Comment(s): Skin Cancer. General Exam Limitations: no limitations General appearance: alert, in no apparent distress Head exam: Present: atraumatic, normocephalic, normal inspection Respiratory exam: Present: normal lung sounds bilaterally. Absent: respiratory distress, wheezes, rales, rhonchi, stridor Cardiovascular Exam: Present: regular rate, normal rhythm, normal heart sounds. Absent: systolic murmur, diastolic murmur, rubs, gallop, clicks Extremities exam: Present: other (Large area of erythema with overlying induration, tenderness, and heat on the anterior aspect of the left thigh. Several puncture wounds. One of the wounds is draining a combination of purulent and sanguinous material with foul odor. Other wounds are draining serous fluid.) Neurological exam: Present: alert, oriented X3, CN II-XII intact Psychiatric exam: Present: normal affect, normal mood Course Vital Signs 01/28/23 01/29/23 23:42 02:38 Temperature 98.6 F 97.9 F Pulse Rate 86 74 Respiratory 18 16 Rate Blood Pressure 135/84 131/82 O2 Sat by Pulse 98 97 Oximetry Medical Decision Making - Medical Decision Making This is a 62-year-old female who presents to the emergency department for a dog bite to the left thigh. Was pt. sent in by a medical professional or institution? @ -No Did you speak to anyone other than the patient for history? @ -No Did you review nursing and triage notes? @ -Yes, and I agree, it is accurate with regards to the patient's symptoms. Were old charts reviewed? @ -No Differential Diagnosis? @ -Not applicable EKG interpreted by me (3pts min.)? @ -None X-rays interpreted by me (1pt min.)? @ -X-ray of the left thigh obtained. My interpretation identifies no acute fractures or subcutaneous gas formation. CT interpreted by me (1pt min.)? @ -Not obtained U/S interpreted by me (1pt. min.)? @ -Not obtained What testing was considered but not performed? (CT, X-rays, U/S, labs)? Why? @ -None What meds were considered but not given? Why? @ -None Did you discuss the management of the patient with other professionals? @ -No Did you reconcile home meds? @ -No Was smoking cessation discussed for >3mins.? @ -No Was critical care preformed (if so, how long)? @ -No Were there social determinants of health that impacted care today? How? (Homelessness, low income, unemployed, alcoholism, drug addiction, transportation, low edu. Level, literacy, decrease access to med. care, long-term, rehab)? @ -No Was there de-escalation of care discussed even if they declined? (Discuss DNR or withdrawal of care, Hospice)? @ -No What co-morbidities impacted this encounter? (DM, HTN, Smoking, COPD, CAD, Cancer, CVA, Hep., AIDS, mental health diagnosis, sleep apnea, morbid obesity)? @ -None Was patient admitted / discharged? @ -Discharged. Lab work obtained revealing minor leukocytosis and CRP elevation. It was otherwise nonactionable. X-ray of the left thigh obtained as well revealing no acute findings. She was given a dose of Unasyn in the emergency department. Advised that because this is localized to the thigh area without circumferential involvement, we can trial her on a course of oral anti biotics to start. Patient is agreeable with this. Prescription for Augmentin provided with dosing instructions reviewed. Tetanus vaccine administered as well. A skin marker was used to outline the area of erythema. The wound itself is already draining and there are otherwise not any fluctuant areas to incise at this time. She was given very strict return parameters, advised that if she develops increasing pain, fevers, or if the redness starts to spread a notable amount past the marked area, she should return to the emergency department for possible IV antibiotics. Undiagnosed new problem with uncertain prognosis? @ -None Drug Therapy requiring intensive monitoring for toxicity (Heparin, Nitro, Insulin, Cardizem)? @ -None Were any procedures done? @ -None Diagnosis/symptom? @ -Dog bite Acute, or Chronic, or Acute on Chronic? @ -Acute Uncomplicated (without systemic symptoms) or Complicated (systemic symptoms)? @ -Uncomplicated Side effects of treatment? @ -None Exacerbation, Progression, or Severe Exacerbation] @ -Not applicable Poses a threat to life or bodily function? @ -Not at this time, however if the infection progresses and she became septic, it can become a life/limb threatening issue. Return precautions reviewed in depth, the patient is instructed to return to the emergency department with any new, worsening, or concerning symptoms. Patient verbalized understanding. This case was discussed in detail with the attending ED physician, Dr. Levi. Presentation, findings, and treatment plan discussed in detail as well. - Lab Data Result diagrams: 01/29/23 01:00 01/29/23 01:00 Lab Results 01/29/23 01/29/2301/29/23 Range/Units 01:00 01:00 01:00 WBC 11.2 H (3.8-10.6) k/uL RBC 4.49 (3.80-5.40) m/uL Hgb 13.6 (11.4-16.0) gm/dL Hct 40.9 (34.0-46.0) % MCV 91.2 (80.0-100.0) fL MCH 30.3 (25.0-35.0) pg MCHC 33.3 (31.0-37.0) g/dL RDW 13.6 (11.5-15.5) % Plt Count 314 (150-450) k/uL MPV 7.8 Neutrophils % 72 % Lymphocytes % 19 % Monocytes % 5 % Eosinophils % 2 % Basophils % 0 % Neutrophils # 8.1 H (1.3-7.7) k/uL Lymphocytes # 2.1 (1.0-4.8) k/uL Monocytes # 0.5 (0-1.0) k/uL Eosinophils # 0.2 (0-0.7) k/uL Basophils # 0.1 (0-0.2) k/uL Sodium 133 L (137-145) mmol/L Potassium 3.8 (3.5-5.1) mmol/L Chloride 98 (98-107) mmol/L Carbon Dioxide 25 (22-30) mmol/L Anion Gap 10 mmol/L BUN 7 (7-17) mg/dL Creatinine 0.58 (0.52-1.04) mg/dL Est GFR (CKD-EPI)AfAm >90 (>60 ml/min/1.73 sqM) Est GFR (CKD-EPI)NonAf >90 (>60 ml/min/1.73 sqM) Glucose 94 (74-99) mg/dL Plasma Lactic Acid Jose 0.9 (0.7-2.0) mmol/L Calcium 9.2 (8.4-10.2) mg/dL Total Bilirubin 0.6 (0.2-1.3) mg/dL AST 20 (14-36) U/L ALT 16 (4-34) U/L Alkaline Phosphatase 91 (38-126) U/L C-Reactive Protein 6.6 H (<1.0) mg/dL Total Protein 7.1 (6.3-8.2) g/dL Albumin 4.1 (3.5-5.0) g/dL - Radiology Data Radiology results: report reviewed, image reviewed Disposition Clinical Impression: Dog bite Disposition: HOME SELF-CARE Instructions (If sedation given, give patient instructions): Animal Bite (ED) Additional Instructions: Return to the emergency department with any new, worsening, or concerning symptoms, especially if you develop fevers or if the redness starts to spread much outside of the marked area. Take the antibiotic as prescribed for 10 days. Continue to take your pain medication as prescribed. Follow up with your primary care provider in 1-2 days. Prescriptions: Amoxic-Pot Clav 875-125Mg [Augmentin 875-125] 1 tab PO Q12HR 10 Days #20 tab Is patient prescribed a controlled substance at d/c from ED?: No Referrals: Jacob Santamaria DO [Primary Care Provider] - 1-2 days
[2023-01-29 01:23] LABS: ALT 16 U/L (4-34); AST 20 U/L (14-36); African American GFR (CKD) >90 (>60 ml/min/1.73 sqM); Albumin 4.1 g/dL (3.5-5.0); Alkaline Phosphatase 91 U/L (38-126); Anion Gap 10 mmol/L; Blood Urea Nitrogen 7 mg/dL (7-17); C Reactive Protein 6.6 mg/dL (<1.0); Calcium 9.2 mg/dL (8.4-10.2); Carbon Dioxide 25 mmol/L (22-30); Chloride 98 mmol/L (98-107); Glucose 94 mg/dL (74-99); Non-African American GFR(CKD) >90 (>60 ml/min/1.73 sqM); Potassium 3.8 mmol/L (3.5-5.1); Sodium 133 mmol/L (137-145); Total Bilirubin 0.6 mg/dL (0.2-1.3); Total Protein 7.1 g/dL (6.3-8.2)
--- NOTE | 2023-01-29 01:52 | XR ---
EXAM: XR Left Femur, 2 Views CLINICAL HISTORY: ITS.REASON XR Reason: Dog bite TECHNIQUE: Frontal and lateral views of the left femur. COMPARISON: No relevant prior studies available. FINDINGS: Bones/joints: Unremarkable. No acute fracture. No dislocation. Soft tissues: Unremarkable. IMPRESSION: Normal left femur x-rays.
[2023-01-29] MEDS ORDERED: AMOXIC-POT CLAV 875MG STARTER PACK 2 TAB BTL PO STA (02:09)
[2023-01-29] MEDS ORDERED: IBUPROFEN 600 MG STARTER PACK 4 TAB BTL PO STA (02:09)
[2023-01-29 02:39] VITALS: BP 131/82; PULSE 74; RESP 16; TEMP 97.9
[2023-01-29] MEDS ORDERED: AMPICILLIN-SULBACTAM 3 GM in SODIUM CHLORIDE 0.9% 100 ML IVPB SCH (06:00)
== END 2023-01-29 02:39 | disposition home or self-care (01) ==
LOC: EC 22:57
DX: S71.152A Open bite, left thigh, initial encounter (principal); E78.5 Hyperlipidemia, unspecified; E07.9 Disorder of thyroid, unspecified; M19.90 Unspecified osteoarthritis, unspecified site; F41.9 Anxiety disorder, unspecified; F17.200 Nicotine dependence, unspecified, uncomplicated; Z23 Encounter for immunization; Z79.890 Hormone replacement therapy; Z79.899 Other long term (current) drug therapy; Z88.8 Allergy status to other drugs, medicaments and biological substances; W54.0XXA Bitten by dog, initial encounter
CPT/HCPCS: 36415; 80053; 83605; 85025; 86140; 87040; 73552; 90715; 99284; 96365; 90471; J0295

== ENCOUNTER 2023-10-01 16:44 | Inpatient (IN) | payer MEDICARE, OTHER ==
--- NOTE | 2023-10-01 17:01 | ED ---
General Adult HPI - General Chief complaint: Shortness of Breath Stated complaint: L Abd Pain Time Seen by Provider: 10/01/23 16:50 Source: patient, family, RN notes reviewed, old records reviewed Mode of arrival: ambulatory Limitations: no limitations - History of Present Illness Initial comments: 63-year-old female presenting with left-sided chest pain worse with deep inspiration. Pain began suddenly. She does report a mild cough and dyspnea, history of COPD. No central substernal chest pain. Pain is left lateral chest wall. No injury. No fever. - Related Data Home Medications Medication Instructions Recorded Confirmed Ibuprofen [Motrin] 600 mg PO Q8HR PRN 04/18/15 10/01/23 Simvastatin [Zocor] 40 mg PO HS 01/31/18 10/01/23 Albuterol Inhaler [Ventolin Hfa 2 puff INHALATION RT-Q6H PRN 10/06/18 10/01/23 Inhaler] Budesonide-Formot 160-4.5 Mcg 2 puff INHALATION RT-BID 12/24/18 10/01/23 [Symbicort 160-4.5 Mcg Inhaler] Calcium Carbonate [Calcium] 600 mg PO DAILY 11/15/21 10/01/23 Desvenlafaxine [Pristiq ER] 100 mg PO DAILY 11/15/21 10/01/23 HYDROcodone/APAP 7.5-325MG [[place] 1 tab PO Q8H PRN 11/15/21 10/01/23 7.5-325] Umeclidinium [place] [Incruse 1 puff INHALATION RT-DAILY 11/15/21 10/01/23 Ellipta] Ezetimibe [Zetia] 10 mg PO DAILY 10/01/23 10/01/23 Fluticasone/Vilanterol [Breo 1 puff INHALATION RT-BID 10/01/23 10/01/23 Ellipta 200-25 Mcg Inhaler] Levothyroxine Sodium [Synthroid] 75 mcg PO SUSA 10/01/23 10/01/23 Levothyroxine Sodium [Synthroid] 150 mcg PO MOTUWETHFR 10/01/23 10/01/23 Pregabalin [Lyrica] 100 mg PO DIRECTED 10/01/23 10/01/23 diphenhydrAMINE [Benadryl] 25 mg PO QID PRN 10/01/23 10/01/23 rOPINIRole HCL [Requip] 1 mg PO HS 10/01/23 10/01/23 rOPINIRole HCL [Requip] 2 mg PO HS 10/01/23 10/01/23 Allergies Allergy/AdvReac Type Severity Reaction Status Date / Time mupirocin [From Bactroban] Allergy Rash/Hives Verified 10/01/23 18:05 Review of Systems ROS Statement: Those systems with pertinent positive or pertinent negative responses have been documented in the HPI. ROS Other: All systems not noted in ROS Statement are negative. Past Medical History Past Medical History: Cancer, COPD, Hyperlipidemia, Musculoskeletal Disorder, Osteoarthritis (OA), Thyroid Disorder Additional Past Medical History / Comment(s): Chronic pain to neck and back, carpel tunnel, hx cervical cancer -no chemo or radiation, having MRI 04/23/21, Osteopenia. History of Any Multi-Drug Resistant Organisms: None Reported Past Surgical History: Tubal Ligation Additional Past Surgical History / Comment(s): Carpal tunnel surgey, partial thyroidectomy, hysteroscopy. Past Anesthesia/Blood Transfusion Reactions: No Reported Reaction Past Psychological History: Anxiety Smoking Status: Current every day smoker Past Alcohol Use History: None Reported Past Drug Use History: None Reported - Past Family History Mother Family Medical History: Cancer Additional Family Medical History / Comment(s): Skin Cancer. Father Family Medical History: Cancer Additional Family Medical History / Comment(s): Skin Cancer. General Exam Limitations: no limitations General appearance: alert, in distress Head exam: Present: atraumatic, normocephalic Eye exam: Present: normal appearance, PERRL ENT exam: Present: normal exam Neck exam: Present: normal inspection. Absent: tenderness Respiratory exam: Present: respiratory distress, chest wall tenderness, decreased breath sounds. Absent: wheezes, rales Cardiovascular Exam: Present: normal rhythm, tachycardia GI/Abdominal exam: Present: soft, tenderness. Absent: distended, guarding, rebound Extremities exam: Present: normal inspection, normal capillary refill Neurological exam: Present: alert, oriented X3, CN II-XII intact. Absent: motor sensory deficit Psychiatric exam: Present: anxious Skin exam: Present: warm, dry, intact Course Vital Signs 10/01/23 10/01/23 10/01/23 16:46 17:10 17:57 Temperature 97 F L Pulse Rate 104 H 102 H 106 H Respiratory 36 H 26 H 28 H Rate Blood Pressure 164/81 164/99 156/94 O2 Sat by Pulse 96 97 98 Oximetry Medical Decision Making - Medical Decision Making Was pt. sent in by a medical professional or institution (, PA, SHOVEL LOADER OPERATOR, urgent care, hospital, or [place] health care facility...) When possible be specific @ -No Did you speak to anyone other than the patient for history (EMS, parent, family, police, friend...)? What history was obtained from this source @ -No Did you review nursing and triage notes (agree or disagree)? Why? @ -I reviewed and agree with nursing and triage notes Were old charts reviewed (outside hosp., previous admission, EMS record, old EKG, old radiological studies, urgent care reports/EKG's, [place] health care facility records)? Report findings @ -No old charts were reviewed Differential Diagnosis (chest pain, altered mental status, abdominal pain women, abdominal pain men, vaginal bleeding, weakness, fever, dyspnea, syncope, headache, dizziness, GI bleed, back pain, seizure, CVA, palpatations, mental health, musculoskeletal)? @ -Differential Dyspnea: Coronary syndrome, arrhythmia, tamponade, asthma, COPD, pulmonary embolism, pneumonia, pneumothorax, pulmonary effusion, anaphylaxis, diabetic ketoacidosis, flailed chest, pulmonary contusion, diaphragmatic rupture, anemia, neuromuscular, this is not meant to be an all-inclusive list. EKG interpreted by me (3pts min.). @EKG: Sinus rhythm rate of 99, KS interval 149, QRS duration 80, QTC [address] segment elevation, T waves are upright Repeat EKG at 1848, sinus tachycardia ventricular rate of 100, KS interval 154, QRS duration 80, QTC [address] segment changes. X-rays interpreted by me (1pt min.). @ -Single view chest x-ray negative for pneumothorax, no acute findings. CT interpreted by me (1pt min.). @CT of the abdomen negative for acute process, showing calcified fibroid without other acute abnormality. CT of the chest for pulmonary embolism was negative for pulmonary embolus but does show emphysema and possible infiltrate. U/S interpreted by me (1pt. min.). @ -None done What testing was considered but not performed or refused? (CT, X-rays, U/S, labs)? Why? @ -None What meds were considered but not given or refused? Why? @ -None Did you discuss the management of the patient with other professionals (professionals i.e. , PA, SHOVEL LOADER OPERATOR, lab, RT, psych nurse, social work msw, clinical research manager, svetlana achetello, environmental conservation officer, oil field caser)? Give summary @ -[facility] Was smoking cessation discussed for >3mins.? @ -No Was critical care preformed (if so, how long)? @ -No Were there social determinants of health that impacted care today? How? (Homelessness, low income, unemployed, alcoholism, drug addiction, transportation, low edu. Level, literacy, decrease access to med. care, custodial, rehab)? @ -No Was there de-escalation of care discussed even if they declined (Discuss DNR or withdrawal of care, Hospice)? DNR status @ -No What co-morbidities impacted this encounter? (DM, HTN, Smoking, COPD, CAD, Cancer, CVA, ARF, Chemo, Hep., AIDS, mental health diagnosis, sleep apnea, morbid obesity)? @COPD Was patient admitted / discharged? Hospital course, mention meds given and route, prescriptions, significant lab abnormalities, going to OR and other pert inent info. @63-year-old female with left-sided chest pain worse with deep inspiration, mild cough. Workup including laboratory testing, EKG, CT of the chest abdomen pelvis shows possible infiltrate and there is a leukocytosis. Otherwise laboratory testing is unremarkable. Patient will require both symptomatically treatment for pneumonia and with pleurisy as well as repeat cardiac enzymes to ensure that this is not cardiac ischemic in nature. She'll be admitted with treatment for pneumonia at this time. Undiagnosed new problem with uncertain prognosis? @ -No Drug Therapy requiring intensive monitoring for toxicity (Heparin, Nitro, Insulin, Cardizem)? @ -No Were any procedures done? @ -No Diagnosis/symptom? @Pneumonia, chest pain Acute, or Chronic, or Acute on Chronic? @ -Acute Uncomplicated (without systemic symptoms) or Complicated (systemic symptoms)? @ -default Side effects of treatment? @ -No Exacerbation, Progression, or Severe Exacerbation? @ -No Poses a threat to life or bodily function? How? (Chest pain, [place], [place], pneumonia, PE, COPD, DKA, ARF, appy, cholecystitis, CVA, Diverticulitis, Homicidal, Suicidal, threat to staff... and all critical care pts) @ -Yes, moderate risk, sepsis, respiratory failure, chest pain - Lab Data Result diagrams: 10/01/23 17:10/01/23 17: Lab Results 10/01/23 10/01/23 10/01/23 Range/Units 17: 17: 17: WBC 14.6 H (3.8-10.6) k/uL RBC 4.25 (3.80-5.40) m/uL Hgb 13.0 (11.4-16.0) gm/dL Hct 39.0 (34.0-46.0) % MCV 91.7 (80.0-100.0) fL MCH 30.6 (25.0-35.0) pg MCHC 33.4 (31.0-37.0) g/dL RDW 13.8 (11.5-15.5) % Plt Count 299 (150-450) k/uL MPV 8.4 Neutrophils % 81 % Lymphocytes % 13 % Monocytes % 4 % Eosinophils % 1 % Basophils % 1 % Neutrophils # 11.8 H (1.3-7.7) k/uL Lymphocytes # 1.8 (1.0-4.8) k/uL Monocytes # 0.5 (0-1.0) k/uL Eosinophils # 0.1 (0-0.7) k/uL Basophils # 0.1 (0-0.2) k/uL PT 10.2 (10.0-12.5) sec INR 0.9 (<1.2) APTT 25.1 (22.0-30.0) sec Sodium 135 L (137-145) mmol/L Potassium 4.1 (3.5-5.1) mmol/L Chloride 105 (98-107) mmol/L Carbon Dioxide 25 (22-30) mmol/L Anion Gap 5 mmol/L BUN 7 (7-17) mg/dL Creatinine 0.57 (0.52-1.04) mg/dL Est GFR (CKD-EPI)AfAm >90 (>60 ml/min/1.73 sqM) Est GFR (CKD-EPI)NonAf >90 (>60 ml/min/1.73 sqM) Glucose 98 (74-99) mg/dL Plasma Lactic Acid Jose (0.7-2.0) mmol/L Calcium 9.2 (8.4-10.2) mg/dL Magnesium 1.7 (1.6-2.3) mg/dL Total Bilirubin 0.5 (0.2-1.3) mg/dL AST 24 (14-36) U/L ALT 18 (4-34) U/L Alkaline Phosphatase 87 (38-126) U/L Troponin I (0.000-0.034) ng/mL Total Protein 7.0 (6.3-8.2) g/dL Albumin 4.2 (3.5-5.0) g/dL Influenza Type A (PCR) (Not Detectd) Influenza Type B (PCR) (Not Detectd) RSV (PCR) (Not Detectd) SARS-CoV-2 (PCR) (Not Detectd) 10/01/23 10/01/23 10/01/23 Range/Units 17:01 17:01 17:11 WBC (3.8-10.6) k/uL RBC (3.80-5.40) m/uL Hgb (11.4-16.0) gm/dL Hct (34.0-46.0) % MCV (80.0-100.0) fL MCH (25.0-35.0) pg MCHC (31.0-37.0) g/dL RDW (11.5-15.5) % Plt Count (150-450) k/uL MPV Neutrophils % % Lymphocytes % % Monocytes % % Eosinophils % % Basophils % % Neutrophils # (1.3-7.7) k/uL Lymphocytes # (1.0-4.8) k/uL Monocytes # (0-1.0) k/uL Eosinophils # (0-0.7) k/uL Basophils # (0-0.2) k/uL PT (10.0-12.5) sec INR (<1.2) APTT (22.0-30.0) sec Sodium (137-145) mmol/L Potassium (3.5-5.1) mmol/L Chloride (98-107) mmol/L Carbon Dioxide (22-30) mmol/L Anion Gap mmol/L BUN (7-17) mg/dL Creatinine (0.52-1.04) mg/dL Est GFR (CKD-EPI)AfAm (>60 ml/min/1.73 sqM) Est GFR (CKD-EPI)NonAf (>60 ml/min/1.73 sqM) Glucose (74-99) mg/dL Plasma Lactic Acid Jose 1.2 (0.7-2.0) mmol/L Calcium (8.4-10.2) mg/dL Magnesium (1.6-2.3) mg/dL Total Bilirubin (0.2-1.3) mg/dL AST (14-36) U/L ALT (4-34) U/L Alkaline Phosphatase (38-126) U/L Troponin I <0.012 (0.000-0.034) ng/mL Total Protein (6.3-8.2) g/dL Albumin (3.5-5.0) g/dL Influenza Type A (PCR) Not Detected (Not Detectd) Influenza Type B (PCR) Not Detected (Not Detectd) RSV (PCR) Not Detected (Not Detectd) SARS-CoV-2 (PCR) Not Detected (Not Detectd) Disposition Clinical Impression: Pneumonia, Chest pain Disposition: ADMITTED IP TO THIS HOSP Condition: Stable Is patient prescribed a controlled substance at d/c from ED?: No Referrals: Jacob Santamaria DO [Primary Care Provider] - 1-2 days Time of Disposition: 18:45
[2023-10-01] MEDS: HYDROmorphone 0.5 MG/0.5 ML SYRINGE IVP STA ×2 (17:04→17:55)
[2023-10-01] MEDS: SODIUM CHLORIDE 0.9% 500 ML 500 ML IV ONE (17:05)
[2023-10-01 17:18] LABS: INR 0.9 (<1.2); Partial Thromboplastin Time 25.1 sec (22.0-30.0); Prothrombin Time 10.2 sec (10.0-12.5)
--- NOTE | 2023-10-01 17:18 | XR ---
EXAMINATION TYPE: XR chest 1V portable DATE OF EXAM: 10/01/2023 5:04 PM CLINICAL INDICATION:Female, 63 years old with history of paola; PHH COMPARISON: None TECHNIQUE: XR chest 1V portable Frontal view of the chest. FINDINGS: Lungs/Pleura: Subsegmental atelectasis is present in the lung bases. No evidence of pleural effusion or pneumothorax Pulmonary vascularity: Unremarkable. Heart/mediastinum: Cardiomediastinal silhouette is unremarkable. Musculoskeletal: No acute osseous pathology. IMPRESSION: No acute cardiopulmonary disease/process.
[2023-10-01 17:25] LABS: Basophils # (A) 0.1 k/uL (0-0.2); Basophils % (A) 1 %; Eosinophils # (A) 0.1 k/uL (0-0.7); Eosinophils % (A) 1 %; Lymphocytes # (A) 1.8 k/uL (1.0-4.8); Lymphocytes % (A) 13 %; MCH 30.6 pg (25.0-35.0); MCHC 33.4 g/dL (31.0-37.0); MCV 91.7 fL (80.0-100.0); Mean Platelet Volume 8.4; Monocytes # (A) 0.5 k/uL (0-1.0); Monocytes % (A) 4 %; Neutrophils # (A) 11.8 k/uL (1.3-7.7); Neutrophils % (A) 81 %; Platelet Count 299 k/uL (150-450); RBC 4.25 m/uL (3.80-5.40); RDW 13.8 % (11.5-15.5); WBC 14.6 k/uL (3.8-10.6)
[2023-10-01 17:36] LABS: ALT 18 U/L (4-34); AST 24 U/L (14-36); African American GFR (CKD) >90 (>60 ml/min/1.73 sqM); Albumin 4.2 g/dL (3.5-5.0); Alkaline Phosphatase 87 U/L (38-126); Anion Gap 5 mmol/L; Blood Urea Nitrogen 7 mg/dL (7-17); Calcium 9.2 mg/dL (8.4-10.2); Carbon Dioxide 25 mmol/L (22-30); Chloride 105 mmol/L (98-107); Glucose 98 mg/dL (74-99); Magnesium 1.7 mg/dL (1.6-2.3); Non-African American GFR(CKD) >90 (>60 ml/min/1.73 sqM); Potassium 4.1 mmol/L (3.5-5.1); Sodium 135 mmol/L (137-145); Total Bilirubin 0.5 mg/dL (0.2-1.3)
--- NOTE | 2023-10-01 18:03 | CT ---
EXAMINATION TYPE: CT chest angio for PE CT DLP: Combined DLP of 1055.8 mGycm, Automated exposure control for dose reduction was used. DATE OF EXAM: 10/01/2023 5:58 PM COMPARISON: Chest radiograph from same day. CLINICAL INDICATION:Female, 63 years old with history of paola/cp; Severe LUQ abdominal pain x1hr. PAOLA. CP. TECHNIQUE/CONTRAST: CTA scan of the thorax is performed with IV Contrast, patient injected with 100ml mL of Isovue 300, M IP images are created and reviewed these are created on a separate workstation.. FINDINGS: Pulmonary Artery: There is no evidence for a filling defect within the pulmonary vasculature to sugge st acute pulmonary embolism. The pulmonary artery is of normal size. Lungs/Pleura: Centrilobular emphysematous changes are identified. No evidence of pleural effusion. Sc attered groundglass opacities are noted throughout the lungs. No evidence of pneumothorax. Airway: Large airways are patent. Heart: Heart is within normal limits for size. Vasculature: Mild atherosclerotic calcifications are present throughout the aorta and its branches. Mediastinum: No gross evidence of adenopathy. Musculoskeletal: Moderate degenerative disc disease changes are present throughout the thoracolumbar spine. Soft Tissues: Unremarkable. Lower neck: No significant findings. IMPRESSION: 1. No evidence of pulmonary embolism. 2. Scattered groundglass opacities throughout the lungs, may represent underlying infectious/inflamma tory process. 3. Emphysematous changes of lungs.
--- NOTE | 2023-10-01 18:06 | CT ---
EXAMINATION TYPE: CT abdomen pelvis w con CT DLP: Combined DLP of 1055.8 mGycm, Automated exposure control for dose reduction was used. DATE OF EXAM: 10/01/2023 5:57 PM COMPARISON: CT abdomen pelvis most recent from CLINICAL INDICATION:Female, 63 years old with history of paola/cp/ab pain; Severe LUQ abdominal pain x1 hr. PAOLA. CP. TECHNIQUE: Axial CT of the abdomen and pelvis. Sagittal and coronal reformats were created on a [employer] workstation. Contrast used:100ml mL of Isovue 300 with IV Contrast, (none if empty) Oral contrast used: without Oral Contrast (none if empty) FINDINGS: ABDOMEN LIVER: Unremarkable GALLBLADDER AND BILE DUCTS: Unremarkable. PANCREAS: Unremarkable. SPLEEN: Unremarkable. ADRENAL GLANDS: Unremarkable. KIDNEYS AND URETERS: No evidence of hydronephrosis or renal calculus. The ureters are unremarkable. PELVIS BLADDER: Unremarkable REPRODUCTIVE: Fibroid uterus with coarse calcifications. ABDOMEN & PELVIS STOMACH AND BOWEL: Stomach and duodenum are unremarkable.. Scattered diverticula are noted throughout the colon. No evidence of bowel obstruction. PERITONEUM/RETROPERITONEUM: No evidence of pneumoperitoneum or free fluid. VASCULATURE: Mild atherosclerotic calcifications are present throughout the abdominal aorta and its b ranches. No evidence of aortic aneurysm. MUSCULOSKELETAL: No acute osseous abnormalities. Moderate disc degeneration changes are present throu ghout the thoracolumbar spine. LYMPH NODES: No gross evidence for lymphadenopathy. SOFT TISSUE/ABDOMINAL WALL: Unremarkable IMPRESSION: 1. No acute process. 2. Fibroid uterus. 3. Colonic diverticulosis.
[2023-10-01] MEDS ORDERED: IBUPROFEN 400 MG TAB PO PRN (18:40)
[2023-10-01] MEDS ORDERED: NALOXONE 0.4 MG/ML 1 ML VIAL IV PRN (18:40)
[2023-10-01] MEDS: ASPIRIN 325 MG TAB PO STA (18:50)
[2023-10-01] MEDS: SODIUM CHLORIDE 0.9% 1,000 ML IV SCH (18:52)
[2023-10-01] MEDS: KETOROLAC 15 MG/ML 1 ML VIAL IVP STA (18:52)
[2023-10-01] MEDS: AZITHROMYCIN 500 MG in SODIUM CHLORIDE 0.9% 250 ML IVPB STA (19:56)
[2023-10-01] MEDS: HYDROmorphone 0.5 MG/0.5 ML SYRINGE IVP PRN (23:39)
[2023-10-02] MEDS: ACETAMINOPHEN TAB 325 MG TAB PO PRN (07:39)
[2023-10-02] MEDS ORDERED: ONDANSETRON 4 MG/2 ML VIAL IVP PRN (08:37)
[2023-10-02] MEDS ORDERED: PNEUMONIA PROTOCOL UTILIZED 1 EACH MISC PO PRN (08:37)
[2023-10-02] MEDS ORDERED: ALBUTEROL NEBULIZED 2.5 MG/3 ML INHALATION PRN (08:44)
[2023-10-02] MEDS ORDERED: diphenhydrAMINE 25 MG CAP PO PRN (08:44)
[2023-10-02] MEDS: ENOXAPARIN 40 MG/0.4 ML SYRINGE SQ SCH (09:43)
[2023-10-02] MEDS: methylPREDNISolone SOD SUCCI 40 MG/ML 1 ML VIAL IV SCH (09:43)
[2023-10-02] MEDS: EZETIMIBE 10 MG TAB PO SCH (09:43)
[2023-10-02] MEDS: CALCIUM CARBONATE 500 MG CHEWABLE PO SCH (09:43)
[2023-10-02] MEDS: LEVOTHYROXINE 75 MCG TAB PO SCH (09:43)
[2023-10-02] MEDS: PREGABALIN 100 MG CAP PO SCH (09:43)
[2023-10-02] MEDS: DESVENLAFAXINE SUCCINATE 50 MG TAB.ER.24H PO SCH (09:44)
[2023-10-02] MEDS: IPRATROPIUM-ALBUTEROL 3 ML NEB INHALATION PRN (11:09)
[2023-10-02] MEDS: IPRATROPIUM 0.5 MG/2.5 ML NEBU INHALATION SCH (11:10)
--- NOTE | 2023-10-02 11:44 | P.HPIM ---
History of Present Illness H&P Date: 10/02/23 Chief Complaint: Shortness of breath * 63-year-old patient with past medical history of COPD, hyperlipidemia, chronic back pain presents to the emergency department with complaints of shortness of breath, pleuritic chest pain. * Workup initiated in the ER included a chest x-ray as well as CT chest which was negative for pulm embolism * CT abdomen and pelvis showed fibroid uterus no acute process and colon diverticulosis * CT chest obtained in ER negative for pulm embolism, centrilobular emphysematous changes were noted. Large patent airway noted * While in the ER patient was given dose of Rocephin, azithromycin, patient started on pain control REVIEW OF SYSTEMS: Shortness of breath, chest pain, pleuritic chest pain left side CONSTITUTIONAL: No fever, no malaise, no fatigue. HEENT: No recent visual problems or hearing problems. Denied any sore throat. CARDIOVASCULAR: No chest pain, orthopnea, PND, no palpitations, no syncope. PULMONARY: No shortness of breath, no cough, no hemoptysis. GASTROINTESTINAL: No diarrhea, no nausea, no vomiting, no abdominal pain. NEUROLOGICAL: No headaches, no weakness, no numbness. HEMATOLOGICAL: Denies any bleeding or petechiae. GENITOURINARY: Denies any burning micturition, frequency, or urgency. MUSCULOSKELETAL/RHEUMATOLOGICAL: Denies any joint pain, swelling, or any muscle pain. ENDOCRINE: Denies any polyuria or polydipsia. PHYSICAL EXAMINATION: GENERAL: The patient is alert and oriented x3, nasal cannula in place HEENT: Pupils are round and equally reacting to light. EOMI. CARDIOVASCULAR: S1 and S2 present. No murmurs, rubs, or gallops. PULMONARY: Chest is clear to auscultation, no wheezing or crackles. ABDOMEN: Soft, nontender, nondistended, normoactive bowel sounds. No palpable organomegaly. MUSCULOSKELETAL: No joint swelling or deformity. EXTREMITIES: No cyanosis, clubbing, or pedal edema. NEUROLOGICAL: Gross neurological examination did not reveal any focal deficits. SKIN: No rashes. Past Medical History Past Medical History: Cancer, COPD, Hyperlipidemia, Musculoskeletal Disorder, Osteoarthritis (OA), Thyroid Disorder Additional Past Medical History / Comment(s): Chronic pain to neck and back, carpel tunnel, hx cervical cancer -no chemo or radiation, having MRI 04/23/21, Osteopenia. History of Any Multi-Drug Resistant Organisms: None Reported Past Surgical History: Tubal Ligation Additional Past Surgical History / Comment(s): Carpal tunnel surgey, partial thyroidectomy, hysteroscopy. Past Anesthesia/Blood Transfusion Reactions: No Reported Reaction Past Psychological History: Anxiety Smoking Status: Current every day smoker Past Alcohol Use History: None Reported Past Drug Use History: None Reported - Past Family History Mother Family Medical History: Cancer Additional Family Medical History / Comment(s): Skin Cancer. Father Family Medical History: Cancer Additional Family Medical History / Comment(s): Skin Cancer. Medications and Allergies Home Medications Medication Instructions Recorded Confirmed Type Ibuprofen [Motrin] 600 mg PO Q8HR PRN 04/18/15 10/01/23 History Simvastatin [Zocor] 40 mg PO HS 01/31/18 10/01/23 History Albuterol Inhaler [Ventolin Hfa 2 puff INHALATION RT-Q6H PRN 10/06/18 10/01/23 History Inhaler] Budesonide-Formot 160-4.5 Mcg 2 puff INHALATION RT-BID 12/24/18 10/01/23 History [Symbicort 160-4.5 Mcg Inhaler] Calcium Carbonate [Calcium] 600 mg PO DAILY 11/15/21 10/01/23 History Desvenlafaxine [Pristiq ER] 100 mg PO DAILY 11/15/21 10/01/23 History HYDROcodone/APAP 7.5-325MG [[place] 1 tab PO Q8H PRN 11/15/21 10/01/23 History 7.5-325] Umeclidinium [place] [Incruse 1 puff INHALATION RT-DAILY 11/15/21 10/01/23 History Ellipta] Ezetimibe [Zetia] 10 mg PO DAILY 10/01/23 10/01/23 History Fluticasone/Vilanterol [Breo 1 puff INHALATION RT-BID 10/01/23 10/01/23 History Ellipta 200-25 Mcg Inhaler] Levothyroxine Sodium [Synthroid] 75 mcg PO SUSA 10/01/23 10/01/23 History Levothyroxine Sodium [Synthroid] 150 mcg PO MOTUWETHFR 10/01/23 10/01/23 History Pregabalin [Lyrica] 100 mg PO DIRECTED 10/01/23 10/01/23 History diphenhydrAMINE [Benadryl] 25 mg PO QID PRN 10/01/23 10/01/23 History rOPINIRole HCL [Requip] 1 mg PO HS 10/01/23 10/01/23 History rOPINIRole HCL [Requip] 2 mg PO HS 10/01/23 10/01/23 History Allergies Allergy/AdvReac Type Severity Reaction Status Date / Time mupirocin [From Bactroban] Allergy Rash/Hives Verified 10/01/23 18:05 Physical Exam Vitals: Vital Signs Temp Pulse Pulse Resp BP BP Pulse Ox 10/02/23 07:34 98.2 F 92 22 142/83 99 10/02/23 05:54 98.4 F 84 16 109/74 97 10/02/23 01:20 89 18 131/80 95 10/01/23 23:00 87 22 98 10/01/23 21:00 84 23 127/89 97 10/01/23 17:57 106 H 28 H 156/94 98 10/01/23 17:10 102 H 26 H 164/99 97 10/01/23 16:57 107 H 29 H 10/01/23 16:46 97 F L 104 H 36 H 164/81 96 Intake and Output 10/01/23 10/02/23 10/02/23 22:59 06:59 14:59 Other: Weight 65.317 kg Results CBC & Chem 7: 10/01/23 17:01 10/01/23 17:01 Labs: Abnormal Lab Results - Last 24 Hours (Table) 10/01/23 10/01/23 Range/Units 17:01 17:01 WBC 14.6 H (3.8-10.6) k/uL Neutrophils # 11.8 H (1.3-7.7) k/uL Sodium 135 L (137-145) mmol/L Assessment and Plan Assessment: Assessment and plan * Community-acquired pneumonia * Acute hypoxia * COPD exacerbation * Recurrent pleuritic chest pain * Hypothyroid * Dyslipidemia * In regards to community-acquired pneumonia, continue Rocephin and azithromycin to complete total 5-day course. Urine Legionella ordered * In regards to COPD continue patient on breathing treatments, continue patient on albuterol as needed continue IV Solu-Medrol, will consult pulmonary med icine * In regards to hypothyroid continue patient on Synthyroid * CODE STATUS is full code Time with Patient: Greater than 30
[2023-10-02] MEDS: IPRATROPIUM-ALBUTEROL 3 ML NEB INHALATION SCH (12:06)
--- NOTE | 2023-10-02 16:41 | P.CNPUL ---
History of Present Illness Consult date: 10/02/23 Requesting physician: Hannah Pryor Reason for consult: chest pain, COPD Chief complaint: Left chest wall pain History of present illness: This is a very pleasant 63-year-old female patient with a known history of hypothyroidism, hyperlipidemia, chronic obstructive pulmonary disease, chronic and ongoing tobacco dependence of greater than 40 years of greater than 40 years. Yesterday she developed an acute episode of left lower anterior chest wall pain. She denied any trauma. She has been coughing but no more than usual according to her. Chest x-ray revealed no acute cardiopulmonary process. CT angiogram ruled out pulmonary embolism. There is some scattered groundglass opacities throughout the lungs possibly infectious/inflammatory process. Emphysema noted. CT scan of the abdomen and pelvis revealed no acute process. Fibroid uterus. Colonic diverticulosis. She is seen today in consultation in the emergency department. She is sitting up in a stretcher. Awake and alert in no acute distress. She states the pain is improved today compared to yesterday. She does have palpable chest wall/musculoskeletal pain. She denies any worsening shortness of breath, cough or congestion. No fever. White count 14.6. Hemoglobin 13.0. Platelets 299. Sodium 135. Potassium 4.1. Bicarb 25. BUN 7. Creatinine 0.57. Troponins were negative x 3. Procalcitonin negative at 0.03. Viral screen negative. Review of Systems REVIEW OF SYSTEMS: CONSTITUTIONAL: Denies any recent significant weight loss or weight gain. EYES: Denies change in vision. EARS, NOSE, MOUTH, THROAT: Denies headaches, denies sore throat. CARDIOVASCULAR: Denies chest pain, palpitations or syncopal episodes. RESPIRATORY: Denies shortness of breath, cough, congestion or hemoptysis. GASTROINTESTINAL: Denies change in appetite, denies abdominal pain GENITOURINARY: Denies hematuria, denies infections. MUSKULOSKELETAL: Positive for left lower anterior chest wall pain, denies swe lling. INTEGUMENTARY: Denies rash, denies eczema. NEUROLOGICAL: Denies recent memory loss, no recent seizure activity. PSYCHIATRIC: Denies anxiety, denies depression. HEMATOLOGIC/LYMPHATIC: Denies anemia, denies enlarged lymph nodes. Past Medical History Past Medical History: Cancer, COPD, Hyperlipidemia, Musculoskeletal Disorder, Osteoarthritis (OA), Thyroid Disorder Additional Past Medical History / Comment(s): Chronic pain to neck and back, carpel tunnel, hx cervical cancer -no chemo or radiation, having MRI 04/23/21, Osteopenia. History of Any Multi-Drug Resistant Organisms: None Reported Past Surgical History: Tubal Ligation Additional Past Surgical History / Comment(s): Carpal tunnel surgey, partial thyroidectomy, hysteroscopy. Past Anesthesia/Blood Transfusion Reactions: No Reported Reaction Past Psychological History: Anxiety Smoking Status: Current every day smoker Past Alcohol Use History: None Reported Past Drug Use History: None Reported - Past Family History Mother Family Medical History: Cancer Additional Family Medical History / Comment(s): Skin Cancer. Father Family Medical History: Cancer Additional Family Medical History / Comment(s): Skin Cancer. Medications and Allergies Home Medications Medication Instructions Recorded Confirmed Type Ibuprofen [Motrin] 600 mg PO Q8HR PRN 04/18/15 10/01/23 History Simvastatin [Zocor] 40 mg PO HS 01/31/18 10/01/23 History Albuterol Inhaler [Ventolin Hfa 2 puff INHALATION RT-Q6H PRN 10/06/18 10/01/23 History Inhaler] Budesonide-Formot 160-4.5 Mcg 2 puff INHALATION RT-BID 12/24/18 10/01/23 History [Symbicort 160-4.5 Mcg Inhaler] Calcium Carbonate [Calcium] 600 mg PO DAILY 11/15/21 10/01/23 History Desvenlafaxine [Pristiq ER] 100 mg PO DAILY 11/15/21 10/01/23 History HYDROcodone/APAP 7.5-325MG [[place] 1 tab PO Q8H PRN 11/15/21 10/01/23 History 7.5-325] Umeclidinium [place] [[place]cr[place] 1 puff INHALATION RT-DAILY 11/15/21 10/01/23 History Ellipta] Ezetimibe [Zetia] 10 mg PO DAILY 10/01/23 10/01/23 History Fluticasone/Vilanterol [Breo 1 puff INHALATION RT-BID 10/01/23 10/01/23 History Ellipta 200-25 Mcg Inhaler] Levothyroxine Sodium [Synthroid] 75 mcg PO SUSA 10/01/23 10/01/23 History Levothyroxine Sodium [Synthroid] 150 mcg PO MOTUWETHFR 10/01/23 10/01/23 History Pregabalin [Lyrica] 100 mg PO DIRECTED 10/01/23 10/01/23 History diphenhydrAMINE [Benadryl] 25 mg PO QID PRN 10/01/23 10/01/23 History rOPINIRole HCL [Requip] 1 mg PO HS 10/01/23 10/01/23 History rOPINIRole HCL [Requip] 2 mg PO HS 10/01/23 10/01/23 History Allergies Allergy/AdvReac Type Severity Reaction Status Date / Time mupirocin [From Bactroban] Allergy Rash/Hives Verified 10/01/23 18:05 Physical Exam Vitals: Vital Signs Temp Pulse Pulse Resp BP BP Pulse Ox 10/02/23 16:18 98 F 88 20 128/69 97 10/02/23 15:38 100 10/02/23 15:28 96 10/02/23 11:31 98 F 88 20 133/76 98 10/02/23 11:20 98 10/02/23 11:13 90 10/02/23 07:34 98.2 F 92 22 142/83 99 10/02/23 05:54 98.4 F 84 16 109/74 97 10/02/23 01:20 89 18 131/80 95 10/01/23 23:00 87 22 98 10/01/23 21:00 84 23 127/89 97 10/01/23 17:57 106 H 28 H 156/94 98 10/01/23 17:10 102 H 26 H 164/99 97 10/01/23 16:57 107 H 29 H 10/01/23 16:46 97 F L 104 H 36 H 164/81 96 Intake and Output 10/02/23 10/02/23 10/02/23 06:59 14:59 22:59 Intake Total 180 Balance 180 Intake: Oral 180 GENERAL EXAM: Alert, very pleasant 63-year-old female, on 2 L nasal cannula, comfortable in no apparent distress. HEAD: Normocephalic. EYES: Normal reaction of pupils, equal size. NOSE: Clear with pink turbinates. THROAT: No erythema or exudates. NECK: No masses, no JVD. CHEST: No chest wall deformity. Does have palpable left anterior chest wall pain. LUNGS: Equal air entry with no crackles, wheeze, rhonchi or dullness. CVS: S1 and S2 normal with no audible murmur, regular rhythm. ABDOMEN: No hepatosplenomegaly, normal bowel sounds, no guarding or rigidity. SPINE: No scoliosis or deformity SKIN: No rashes CENTRAL NERVOUS SYSTEM: No focal deficits, tone is normal in all 4 extremities. EXTREMITIES: There is no peripheral edema. No clubbing, no cyanosis. Peripheral pulses are intact. Results - Laboratory Findings CBC and BMP: 10/01/23 17:01 10/01/23 17:01 PT/INR, D-dimer PT 10.2 sec (10.0-12.5) 10/01/23 17: INR 0.9 (<1.2) 10/01/23 17: Abnormal lab findings: Abnormal Labs 10/01/23 10/01/23 17:01 17: WBC 14.6 H Neutrophils # 11.8 H Sodium 135 L - Diagnostic Findings Chest x-ray: image reviewed Assessment and Plan Assessment: Atypical chest pain. Suspect musculoskeletal pain possibly from coughing. Pain is reproducible on palpation. Troponins are negative x 3 Chronic obstructive pulmonary disease, currently inactive and stable Hyperlipidemia Hypothyroidism Chronic and ongoing tobacco dependence History of osteoarthritis History of anxiety Plan: The patient was seen and evaluated Chest x-ray, CT scan, labs and medications reviewed Procalcitonin within normal limits Discontinue antibiotics Discontinue Solu medrol, add Medrol Dosepak Continue DuoNeb ventilations, Symbicort Lovenox for DVT prophylaxis Educated regarding importance of complete smoking cessation Probable discharge in a.m. We will continue to follow and make further recommendations based on her clinical status I have personally seen and examined the patient, performed the documentation and the assessment and plan as written. Number of minutes spent on the visit: 20.
[2023-10-02] MEDS: HYDROcodone/APAP 7.5-325MG 1 EACH TAB PO PRN (19:39)
[2023-10-02] MEDS: SYMBICORT 160-4.5 MCG INHALER INHALATION SCH (19:48)
[2023-10-02] MEDS ORDERED: NON FORMULARY DRUG (Fluticasone/Vilanterol [Breo Ellipta 200-25 Mcg Inhaler] 1 EACH Blst.W INHALATION SCH (20:00)
[2023-10-02] MEDS: ATORVASTATIN 20 MG TAB PO SCH (21:04)
[2023-10-03] MEDS ORDERED: AZITHROMYCIN 500 MG TAB PO SCH (09:00)
[2023-10-03 11:33] LABS: Blood Urea Nitrogen 7.6 mg/dL (9.0-27.0); Calcium 8.9 mg/dL (8.7-10.3); Carbon Dioxide 26.1 mmol/L (21.6-31.8); Chloride 107 mmol/L (96-109); Glucose 104 mg/dL (70-110); Potassium 4.2 mmol/L (3.5-5.5); Sodium 141 mmol/L (135-145)
[2023-10-03 11:47] LABS: Basophils # (A) 0.04 X 10*3/uL (0.00-0.10); Basophils % (A) 0.6 %; Eosinophils # (A) 0.02 X 10*3/uL (0.04-0.35); Eosinophils % (A) 0.3 %; HCT 32.1 % (37.2-46.3); HGB 10.4 g/dL (12.0-15.0); Lymphocytes # (A) 1.49 X 10*3/uL (0.90-5.00); Lymphocytes % (A) 23.3 %; MCH 30.2 pg (27.0-32.0); MCHC 32.4 g/dL (32.0-37.0); MCV 93.3 FL (80.0-97.0); Mean Platelet Volume 10.5 FL (9.5-12.2); Monocytes # (A) 0.43 X 10*3/uL (0.20-1.00); Monocytes % (A) 6.7 %; NRBC Per 100 WBC 0 X 10*3/uL (0.00-0.01); Neutrophils # (A) 4.38 X 10*3/uL (1.80-7.70); Neutrophils % (A) 68.6 %; Platelet Count 249 X 10*3/uL (140-440); RBC 3.44 X 10*6/uL (4.10-5.20); RDW 13.7 % (11.5-14.5); WBC 6.39 X 10*3/uL (4.50-10.00)
[2023-10-03] MEDS: methylPREDNISolone 4 MG TAB TAPER PO SCH (12:06)
[2023-10-03] MEDS: DOXYCYCLINE 100 MG CAP PO SCH (12:10)
--- NOTE | 2023-10-03 12:39 | P.PN ---
Subjective Progress Note Date: 10/03/23 * 63-year-old patient with past medical history of COPD, hyperlipidemia, chronic back pain presents to the emergency department with complaints of shortness of breath, pleuritic chest pain. * Workup initiated in the ER included a chest x-ray as well as CT chest which was negative for pulm embolism * CT abdomen and pelvis showed fibroid uterus no acute process and colon diverticulosis * CT chest obtained in ER negative for pulm embolism, centrilobular emphysematous changes were noted. Large patent airway noted * While in the ER patient was given dose of Rocephin, azithromycin, patient started on pain control * 10/03/2023: Patient seen and evaluated bedside, patient continued to complain of pleuritic chest discomfort. Patient transition to doxycycline. Patient started on Medrol Dosepak. Seen by pulmonary medicine. REVIEW OF SYSTEMS: Shortness of breath, cough chest pain, pleuritic chest pain left side CONSTITUTIONAL: No fever, no malaise, no fatigue. HEENT: No recent visual problems or hearing problems. Denied any sore throat. CARDIOVASCULAR: Shortness of breath, cough chest pain, pleuritic chest pain left side PULMONARY: Shortness of breath, cough chest pain, pleuritic chest pain left side GASTROINTESTINAL: No diarrhea, no nausea, no vomiting, no abdominal pain. NEUROLOGICAL: No headaches, no weakness, no numbness. HEMATOLOGICAL: Denies any bleeding or petechiae. GENITOURINARY: Denies any burning micturition, frequency, or urgency. MUSCULOSKELETAL/RHEUMATOLOGICAL: Denies any joint pain, swelling, or any muscle pain. ENDOCRINE: Denies any polyuria or polydipsia. PHYSICAL EXAMINATION: GENERAL: The patient is alert and oriented x3, nasal cannula in place HEENT: Pupils are round and equally reacting to light. EOMI. CARDIOVASCULAR: S1 and S2 present. No murmurs, rubs, or gallops. PULMONARY: Chest is clear to auscultation, no wheezing or crackles. ABDOMEN: Soft, nontender, nondistended, normoactive bowel sounds. No palpable organomegaly. MUSCULOSKELETAL: No joint swelling or deformity. EXTREMITIES: No cyanosis, clubbing, or pedal edema. NEUROLOGICAL: Gross neurological examination did not reveal any focal deficits. SKIN: No rashes. Objective - Vital Signs Vital signs: Vital Signs Temp 98.2 F 10/03/23 11:23 Pulse 88 10/03/23 12:04 Resp 18 10/03/23 11:23 BP 144/60 10/03/23 11:23 Pulse Ox 97 10/03/23 11:23 FiO2 Intake & Output 10/02/23 10/03/23 10/03/23 18:59 06:59 18:59 Intake Total 180 Balance 180 Weight 65.317 kg Intake: Oral 180 Other: # Voids 3 - Labs CBC & Chem 7: 10/03/23 06:37 10/03/23 06:37 Labs: Abnormal Lab Results - Last 24 Hours (Table) 10/03/23 10/03/23 Range/Units 06:37 06:37 RBC 3.44 L (4.10-5.20) X 10*6/uL Hgb 10.4 L (12.0-15.0) g/dL Hct 32.1 L (37.2-46.3) % Eosinophils # 0.02 L (0.04-0.35) X 10*3/uL BUN 7.6 L (9.0-27.0) mg/dL Creatinine 0.5 L (0.6-1.5) mg/dL Microbiology - Last 24 Hours (Table) 10/01/23 18:45 Blood Culture - Preliminary Blood 10/01/23 18:30 Blood Culture - Preliminary Blood Assessment and Plan Assessment: Assessment and plan * Community-acquired pneumonia * Acute hypoxia * COPD exacerbation * Recurrent pleuritic chest pain * Hypothyroid * Dyslipidemia * In regards to community-acquired pneumonia, patient transition from Rocephin and azithromycin to doxycycline, to complete 5-day course * In regards to COPD continue patient on breathing treatments, continue patient on albuterol as needed , seen by pulmonary medicine transition to oral steroids * In regards to hypothyroid continue patient on Synthyroid * In regards to chest pain, serial troponins obtained negative likely noncardiac etiology. CT chest negative for pulm embolism * CODE STATUS is full code Time with Patient: Greater than 30
--- NOTE | 2023-10-03 13:05 | P.PN ---
Subjective Progress Note Date: 10/03/23 This is a very pleasant 63-year-old female patient with a known history of hypothyroidism, hyperlipidemia, chronic obstructive pulmonary disease, chronic and ongoing tobacco dependence of greater than 40 years of greater than 40 years. Yesterday she developed an acute episode of left lower anterior chest wall pain. She denied any trauma. She has been coughing but no more than usual according to her. Chest x-ray revealed no acute cardiopulmonary process. CT angiogram ruled out pulmonary embolism. There is some scattered groundglass opacities throughout the lungs possibly infectious/inflammatory process. Emphysema noted. CT scan of the abdomen and pelvis revealed no acute process. Fibroid uterus. Colonic diverticulosis. She is seen today in consultation in the emergency department. She is sitting up in a stretcher. Awake and alert in no acute distress. She states the pain is improved today compared to yesterday. She does have palpable chest wall/musculoskeletal pain. She denies any worsening shortness of breath, cough or congestion. No fever. White count 14.6. Hemoglobin 13.0. Platelets 299. Sodium 135. Potassium 4.1. Bicarb 25. BUN 7. Creatinine 0.57. Troponins were negative x 3. Procalcitonin negative at 0.03. Viral screen negative. The patient is seen today October 03, 2023 in follow-up on the regular medical floor. Is currently sitting up in bed. Awake and alert in no acute distress. She is still having some ongoing left lower chest wall discomfort. Her procalcitonin was negative at 0.03. She is maintaining good O2 saturations in the 90s on 2 L/min per nasal cannula. Afebrile. Hemodynamically stable. Cultures revealing no growth. White count 6.3. Hemoglobin 10.4. Platelets 249. Sodium 141. Potassium 4.2. Bicarb 26. BUN 7. Creatinine 0.5. She is continued on DuoNeb ventilations, Symbicort, Medrol Dosepak. Lovenox for DVT prophylaxis. Doxycycline as empiric antibiotic. Objective - Vital Signs Vital signs: Vital Signs Temp 98.2 F 10/03/23 11:23 Pulse 88 10/03/23 12:04 Resp 18 10/03/23 11:23 BP 144/60 10/03/23 11:23 Pulse Ox 97 10/03/23 11:23 FiO2 Intake & Output 0210/03/23 10/03/23 18:59 06:59 18:59 Intake Total 180 Balance 180 Weight 65.317 kg Intake: Oral 180 Other: # Voids 3 - Exam GENERAL EXAM: Alert, pleasant 63-year-old female, on 2 L nasal cannula, comfortable in no apparent distress. HEAD: Normocephalic. EYES: Normal reaction of pupils, equal size. NOSE: Clear with pink turbinates. THROAT: No erythema or exudates. NECK: No masses, no JVD. CHEST: No chest wall deformity. Does have palpable left anterior chest wall pain. LUNGS: Equal air entry with no crackles, wheeze, rhonchi or dullness. CVS: S1 and S2 normal with no audible murmur, regular rhythm. ABDOMEN: No hepatosplenomegaly, normal bowel sounds, no guarding or rigidity. SPINE: No scoliosis or deformity SKIN: No rashes CENTRAL NERVOUS SYSTEM: No focal deficits, tone is normal in all 4 extremities. EXTREMITIES: There is no peripheral edema. No clubbing, no cyanosis. Peripheral pulses are intact. - Labs CBC & Chem 7: 10/03/23 06:37 10/03/23 06:37 Labs: Abnormal Lab Results - Last 24 Hours (Table) 10/03/23 10/03/23 Range/Units 06:37 06:37 RBC 3.44 L (4.10-5.20) X 10*6/uL Hgb 10.4 L (12.0-15.0) g/dL Hct 32.1 L (37.2-46.3) % Eosinophils # 0.02 L (0.04-0.35) X 10*3/uL BUN 7.6 L (9.0-27.0) mg/dL Creatinine 0.5 L (0.6-1.5) mg/dL Microbiology - Last 24 Hours (Table) 10/01/23 18:45 Blood Culture - Preliminary Blood 10/01/23 18:30 Blood Culture - Preliminary Blood Assessment and Plan Assessment: Atypical chest pain. Suspect musculoskeletal pain possibly from coughing. Pain is reproducible on palpation. Troponins are negative x 3. Cough may be related to bronchitis. CT angiogram ruled out pulmonary embolism. There is some scattered groundglass opacities throughout the lungs. Currently on doxycycline. Chronic obstructive pulmonary disease, currently inactive and stable Hyperlipidemia Hypothyroidism Chronic and ongoing tobacco dependence History of osteoarthritis History of anxiety Plan: The patient was seen and evaluated Labs and medications reviewed Cleared for discharge from the pulmonary standpoint Continue her home pulmonary medications Complete a Medrol Dosepak Complete a course of doxycycline Again educated regarding importance of smoking cessation Follow-up in our office in 1 week I have personally seen and examined the patient, performed the documentation and the assessment and plan as written. Number of minutes spent on the visit: 10.
[2023-10-03] MEDS: METOPROLOL TARTRATE 25 MG TAB PO SCH (15:15)
[2023-10-03] MEDS: MAGNESIUM SULFATE-D5W PMX 1 GM in DEXTROSE/WATER 1 100ML.BAG IVPB SCH (15:15)
[2023-10-03 21:15] VITALS: RESP 16
[2023-10-04 08:19] LABS: HGB 9.6 g/dL (12.0-15.0); MCV 93.8 FL (80.0-97.0); Mean Platelet Volume 10.3 FL (9.5-12.2); NRBC Per 100 WBC 0 X 10*3/uL (0.00-0.01); Platelet Count 248 X 10*3/uL (140-440); RDW 13.6 % (11.5-14.5); WBC 5.18 X 10*3/uL (4.50-10.00)
[2023-10-04 08:57] LABS: BUN/Creat Ratio 15.29 Ratio (12.00-20.00); Blood Urea Nitrogen 10.7 mg/dL (9.0-27.0); Calcium 9.1 mg/dL (8.7-10.3); Carbon Dioxide 27.6 mmol/L (21.6-31.8); Chloride 105 mmol/L (96-109); Glucose 88 mg/dL (70-110); Potassium 4.2 mmol/L (3.5-5.5); Sodium 141 mmol/L (135-145)
[2023-10-04] MEDS: guaiFENesin 600 MG TABLET.ER PO SCH (10:32)
--- NOTE | 2023-10-04 11:01 | P.PN ---
Subjective Progress Note Date: 10/04/23 This is a very pleasant 63-year-old female patient with a known history of hypothyroidism, hyperlipidemia, chronic obstructive pulmonary disease, chronic and ongoing tobacco dependence of greater than 40 years of greater than 40 years. Yesterday she developed an acute episode of left lower anterior chest wall pain. She denied any trauma. She has been coughing but no more than usual according to her. Chest x-ray revealed no acute cardiopulmonary process. CT angiogram ruled out pulmonary embolism. There is some scattered groundglass opacities throughout the lungs possibly infectious/inflammatory process. Emphysema noted. CT scan of the abdomen and pelvis revealed no acute process. Fibroid uterus. Colonic diverticulosis. She is seen today in consultation in the emergency department. She is sitting up in a stretcher. Awake and alert in no acute distress. She states the pain is improved today compared to yesterday. She does have palpable chest wall/musculoskeletal pain. She denies any worsening shortness of breath, cough or congestion. No fever. White count 14.6. Hemoglobin 13.0. Platelets 299. Sodium 135. Potassium 4.1. Bicarb 25. BUN 7. Creatinine 0.57. Troponins were negative x 3. Procalcitonin negative at 0.03. Viral screen negative. The patient is seen today October 03, 2023 in follow-up on the regular medical floor. Is currently sitting up in bed. Awake and alert in no acute distress. She is still having some ongoing left lower chest wall discomfort. Her procalcitonin was negative at 0.03. She is maintaining good O2 saturations in the 90s on 2 L/min per nasal cannula. Afebrile. Hemodynamically stable. Cultures revealing no growth. White count 6.3. Hemoglobin 10.4. Platelets 249. Sodium 141. Potassium 4.2. Bicarb 26. BUN 7. Creatinine 0.5. She is continued on DuoNeb ventilations, Symbicort, Medrol Dosepak. Lovenox for DVT prophylaxis. Doxycycline as empiric antibiotic. The patient is seen today October 04, 2023 in follow-up on the regular medical floor. She is sitting up in bed. Awake and alert in no acute distress. Denies any worsening shortness of breath, cough or congestion. Denies any chest pain. She is feeling quite a bit better. She is continued on DuoNeb inhalations, Symbicort, Medrol Dosepak. Antibiotics in the form of doxycycline. Lovenox for DVT prophylaxis. Blood cultures revealed no growth. White count 5.1. Hemoglobin 9.6. Platelets 248. Sodium 141. Potassium 4.2. Bicarb 28. BUN 11. Creatinine 0.7. Objective - Vital Signs Vital signs: Vital Signs Temp 97.8 F 10/04/23 07:38 Pulse 83 10/04/23 10:02 Resp 16 10/04/23 07:38 BP 138/77 10/04/23 07:38 Pulse Ox 97 10/04/23 10:02 FiO2 Intake & Output 10/03/23 10/04/23 10/04/23 18:59 06:59 18:59 Intake Total 590 Balance 590 Intake: Oral 590 Other: # Voids 1 2 - Exam GENERAL EXAM: Alert, 63-year-old female, on room air, in no apparent distress. HEAD: Normocephalic. EYES: Normal reaction of pupils, equal size. NOSE: Clear with pink turbinates. THROAT: No erythema or exudates. NECK: No masses, no JVD. CHEST: No chest wall deformity. LUNGS: Equal air entry with no crackles, wheeze, rhonchi or dullness. CVS: S1 and S2 normal with no audible murmur, regular rhythm. ABDOMEN: No hepatosplenomegaly, normal bowel sounds, no guarding or rigidity. SPINE: No scoliosis or deformity SKIN: No rashes CENTRAL NERVOUS SYSTEM: No focal deficits, tone is normal in all 4 extremities. EXTREMITIES: There is no peripheral edema. No clubbing, no cyanosis. Peripheral pulses are intact. - Labs CBC & Chem 7: 10/04/23 04:44 10/04/23 04:44 Labs: Abnormal Lab Results - Last 24 Hours (Table) 10/03/23 10/03/23 10/04/23 Range/Units 06:37 06:37 04:44 RBC 3.44 L 3.20 L (4.10-5.20) X 10*6/uL Hgb 10.4 L 9.6 L (12.0-15.0) g/dL Hct 32.1 L 30.0 L (37.2-46.3) % Eosinophils # 0.02 L (0.04-0.35) X 10*3/uL BUN 7.6 L (9.0-27.0) mg/dL Creatinine 0.5 L (0.6-1.5) mg/dL Microbiology - Last 24 Hours (Table) 10/01/23 18:45 Blood Culture - Preliminary Blood 10/01/23 18:30 Blood Culture - Preliminary Blood Assessment and Plan Assessment: Atypical chest pain. Suspect musculoskeletal pain possibly from coughing. Pain is reproducible on palpation. Troponins are negative x 3. Cough may be related to bronchitis. CT angiogram ruled out pulmonary embolism. There is some scattered groundglass opacities throughout the lungs. Currently on doxycycline. Chronic obstructive pulmonary disease, currently inactive and stable Hyperlipidemia Hypothyroidism Chronic and ongoing tobacco dependence History of osteoarthritis History of anxiety Plan: The patient was seen and evaluated Labs and medications reviewed Cleared for discharge from the pulmonary standpoint Continue her home pulmonary medications Complete a Medrol Dosepak Complete a course of doxycycline Evaluated for home oxygen Remained in the 90s on room air with a 6-minute walk Educated regarding the importance of smoking cessation Follow-up in our office in 1 week This patient was seen independently by the pulmonary nurse practitioner addressing pulmonary issues I have personally seen and examined the patient, performed the documentation and the assessment and plan as written. Number of minutes spent on the visit: 22.
--- NOTE | 2023-10-04 12:43 | P.PN ---
Subjective Progress Note Date: 10/04/23 * 63-year-old patient with past medical history of COPD, hyperlipidemia, chronic back pain presents to the emergency department with complaints of shortness of breath, pleuritic chest pain. * Workup initiated in the ER included a chest x-ray as well as CT chest which was negative for pulm embolism * CT abdomen and pelvis showed fibroid uterus no acute process and colon diverticulosis * CT chest obtained in ER negative for pulm embolism, centrilobular emphysematous changes were noted. Large patent airway noted * While in the ER patient was given dose of Rocephin, azithromycin, patient started on pain control * 10/03/2023: Patient seen and evaluated bedside, patient continued to complain of pleuritic chest discomfort. Patient transition to doxycycline. Patient started on Medrol Dosepak. Seen by pulmonary medicine. * 10/04/23: Patient seen and evaluated bedside. Patient denies complaint of cough, chest pain has improved. Continue to monitor for another 24 hours REVIEW OF SYSTEMS: Shortness of breath, cough chest pain, pleuritic chest pain left side CONSTITUTIONAL: No fever, no malaise, no fatigue. HEENT: No recent visual problems or hearing problems. Denied any sore throat. CARDIOVASCULAR: Shortness of breath, cough chest pain, pleuritic chest pain left side PULMONARY: Shortness of breath, cough chest pain, pleuritic chest pain left side GASTROINTESTINAL: No diarrhea, no nausea, no vomiting, no abdominal pain. NEUROLOGICAL: No headaches, no weakness, no numbness. HEMATOLOGICAL: Denies any bleeding or petechiae. GENITOURINARY: Denies any burning micturition, frequency, or urgency. MUSCULOSKELETAL/RHEUMATOLOGICAL: Denies any joint pain, swelling, or any muscle pain. ENDOCRINE: Denies any polyuria or polydipsia. PHYSICAL EXAMINATION: GENERAL: The patient is alert and oriented x3 , nasal cannula in place HEENT: Pupils are round and equally reacting to light. EOMI. CARDIOVASCULAR: S1 and S2 present. No murmurs, rubs, or gallops. PULMONARY: Chest is clear to auscultation, no wheezing or crackles. ABDOMEN: Soft, nontender, nondistended, normoactive bowel sounds. No palpable organomegaly. MUSCULOSKELETAL: No joint swelling or deformity. EXTREMITIES: No cyanosis, clubbing, or pedal edema. NEUROLOGICAL: Gross neurological examination did not reveal any focal deficits. SKIN: No rashes. Objective - Vital Signs Vital signs: Vital Signs Temp 98.6 F 10/04/23 12:07 Pulse 65 10/04/23 12:07 Resp 16 10/04/23 12:07 BP 90/59 10/04/23 12:07 Pulse Ox 97 10/04/23 12:07 FiO2 Intake & Output 10/03/23 10/04/23 10/04/23 18:59 06:59 18:59 Intake Total 590 Balance 590 Intake: Oral 590 Other: # Voids 1 2 - Labs CBC & Chem 7: 10/04/23 04:44 10/04/23 04:44 Labs: Abnormal Lab Results - Last 24 Hours (Table) 10/04/23 Range/Units 04:44 RBC 3.20 L (4.10-5.20) X 10*6/uL Hgb 9.6 L (12.0-15.0) g/dL Hct 30.0 L (37.2-46.3) % Microbiology - Last 24 Hours (Table) 10/01/23 18:45 Blood Culture - Preliminary Blood 10/01/23 18:30 Blood Culture - Preliminary Blood Assessment and Plan Assessment: Assessment and plan * Community-acquired pneumonia * Acute hypoxia * COPD exacerbation * Recurrent pleuritic chest pain * Hypothyroid * Dyslipidemia * In regards to community-acquired pneumonia, patient transition from Rocephin and azithromycin to doxycycline day 2/5 , to complete 5-day course * In regards to COPD continue patient on breathing treatments, continue patient on albuterol as needed , seen by pulmonary medicine transition to oral steroids * In regards to hypothyroid continue patient on Synthyroid * In regards to chest pain, serial troponins obtained negative likely noncardiac etiology. CT chest negative for pulmonary embolism. * CODE STATUS is full code Time with Patient: Greater than 30
[2023-10-05 08:19] VITALS: BP 136/83; TEMP 98.1
[2023-10-05 10:17] LABS: HCT 31.7 % (37.2-46.3); HGB 10.4 g/dL (12.0-15.0); MCH 30.3 pg (27.0-32.0); MCHC 32.8 g/dL (32.0-37.0); MCV 92.4 FL (80.0-97.0); Mean Platelet Volume 10.1 FL (9.5-12.2); NRBC Per 100 WBC 0 X 10*3/uL (0.00-0.01); Platelet Count 267 X 10*3/uL (140-440); RBC 3.43 X 10*6/uL (4.10-5.20); RDW 13.4 % (11.5-14.5); WBC 5.88 X 10*3/uL (4.50-10.00)
[2023-10-05 10:43] LABS: BUN/Creat Ratio 11.57 Ratio (12.00-20.00); Blood Urea Nitrogen 8.1 mg/dL (9.0-27.0); Calcium 9.3 mg/dL (8.7-10.3); Carbon Dioxide 26.4 mmol/L (21.6-31.8); Chloride 103 mmol/L (96-109); Glucose 82 mg/dL (70-110); Sodium 140 mmol/L (135-145)
--- NOTE | 2023-10-05 10:48 | P.DS ---
Providers Date of admission: 10/01/23 18:40 Expected date of discharge: 10/05/23 Attending physician: Ryan Collins MD Consults: 10/02/23 11:44 Consult Physician Routine Consulting Provider: Aleisha Bergman Consult Reason/Comments: COPD exacerbation Do you want consulting provider notified?: Yes Primary care physician: [facility] Course: * 63-year-old patient with past medical history of COPD, hyperlipidemia, chronic back pain presents to the emergency department with complaints of shortness of breath, pleuritic chest pain. * Workup initiated in the ER included a chest x-ray as well as CT chest which was negative for pulm embolism * CT abdomen and pelvis showed fibroid uterus no acute process and colon diverticulosis * CT chest obtained in ER negative for pulm embolism, centrilobular emphysematous changes were noted. Large patent airway noted * While in the ER patient was given dose of Rocephin, azithromycin, patient started on pain control * 10/03/2023: Patient seen and evaluated bedside, patient continued to complain of pleuritic chest discomfort. Patient transition to doxycycline. Patient started on Medrol Dosepak. Seen by pulmonary medicine. * 10/04/23: Patient seen and evaluated bedside. Patient denies complaint of cough, chest pain has improved. Continue to monitor for another 24 hours * 10/05/2023: Patient has been weaned down to room air, patient had dressing walking completed prior to discharge breathing has improved chest pain has resolved, given prescription for Mucinex and prednisone REVIEW OF SYSTEMS: Shortness of breath, cough chest pain, pleuritic chest pain left side RESOLVED CONSTITUTIONAL: No fever, no malaise, no fatigue. HEENT: No recent visual problems or hearing problems. Denied any sore throat. CARDIOVASCULAR: Shortness of breath, cough chest pain, pleuritic chest pain left side RESOLVED PULMONARY: Shortness of breath, cough chest pain, pleuritic chest pain left side RESOLVED GASTROINTESTINAL: No diarrhea, no nausea, no vomiting, no abdominal pain. NEUROLOGICAL: No headaches, no weakness, no numbness. HEMATOLOGICAL: Denies any bleeding or petechiae. GENITOURINARY: Denies any burning micturition, frequency, or urgency. MUSCULOSKELETAL/RHEUMATOLOGICAL: Denies any joint pain, swelling, or any muscle pain. ENDOCRINE: Denies any polyuria or polydipsia. PHYSICAL EXAMINATION: GENERAL: The patient is alert and oriented x3 , on room air HEENT: Pupils are round and equally reacting to light. EOMI. CARDIOVASCULAR: S1 and S2 present. No murmurs, rubs, or gallops. PULMONARY: Chest is clear to auscultation, no wheezing or crackles. ABDOMEN: Soft, nontender, nondistended, normoactive bowel sounds. No palpable organomegaly. MUSCULOSKELETAL: No joint swelling or deformity. EXTREMITIES: No cyanosis, clubbing, or pedal edema. NEUROLOGICAL: Gross neurological examination did not reveal any focal deficits. SKIN: No rashes. Assessment and plan * Community-acquired pneumonia * Acute hypoxia RESOLVED * COPD exacerbation * Episode of SVT resolved * Recurrent pleuritic chest pain RESOLVED * Hypothyroid * Dyslipidemia * In regards to community-acquired pneumonia, patient transition from Rocephin and azithromycin to doxycycline day 3/5 , to complete 5-day course * In regards to COPD continue patient on breathing treatments, continue patient on albuterol as needed , seen by pulmonary medicine transition to oral steroids * In regards to hypothyroid continue patient on Synthyroid * In regards to chest pain, serial troponins obtained negative likely noncardiac etiology. CT chest negative for pulmonary embolism. * In regards to paroxysmal SVT, patient started on metoprolol * Patient discharged home in stable condition Patient Condition at Discharge: Good Plan - Discharge Summary Discharge Rx Participant: Yes New Discharge Prescriptions: New predniSONE [Deltasone] 20 mg PO DAILY 3 Days #3 tab Metoprolol Tartrate [Lopressor] 25 mg PO BID 30 Days #60 tab guaiFENesin [Mucinex] 600 mg PO Q12HR 5 Days #10 tab Doxycycline [Vibramycin] 100 mg PO BID 2 Days #4 cap Continue Ibuprofen [Motrin] 600 mg PO Q8HR PRN PRN Reason: Pain Simvastatin [Zocor] 40 mg PO HS Albuterol Inhaler [Ventolin Hfa Inhaler] 2 puff INHALATION RT-Q6H PRN PRN Reason: Shortness Of Breath Budesonide-Formot 160-4.5 Mcg [Symbicort 160-4.5 Mcg Inhaler] 2 puff INHALATION RT-BID HYDROcodone/APAP 7.5-325MG [[place] 7.5-325] 1 tab PO Q8H PRN PRN Reason: Pain Calcium Carbonate [Calcium] 600 mg PO DAILY Desvenlafaxine [Pristiq ER] 100 mg PO DAILY Levothyroxine Sodium [Synthroid] 150 mcg PO MOTUWETHFR Pregabalin [Lyrica] 100 mg PO DIRECTED Umeclidinium [place] [Incruse Ellipta] 1 puff INHALATION RT-DAILY Ezetimibe [Zetia] 10 mg PO DAILY Levothyroxine Sodium [Synthroid] 75 mcg PO SUSA Fluticasone/Vilanterol [Breo Ellipta 200-25 Mcg Inhaler] 1 puff INHALATION RT-BID rOPINIRole HCL [Requip] 1 mg PO HS rOPINIRole HCL [Requip] 2 mg PO HS diphenhydrAMINE [Benadryl] 25 mg PO QID PRN PRN Reason: Allergy Symptoms Discharge Medication List Ibuprofen [Motrin] 600 mg PO Q8HR PRN 04/18/15 [History] Simvastatin [Zocor] 40 mg PO HS 01/31/18 [History] Albuterol Inhaler [Ventolin Hfa Inhaler] 2 puff INHALATION RT-Q6H PRN 10/06/18 [History] Budesonide-Formot 160-4.5 Mcg [Symbicort 160-4.5 Mcg Inhaler] 2 puff INHALATION RT-BID 12/24/18 [History] Calcium Carbonate [Calcium] 600 mg PO DAILY 11/15/21 [History] Desvenlafaxine [Pristiq ER] 100 mg PO DAILY 11/15/21 [History] HYDROcodone/APAP 7.5-325MG [[place] 7.5-325] 1 tab PO Q8H PRN 11/15/21 [History] Umeclidinium [place] [Incruse Ellipta] 1 puff INHALATION RT-DAILY 11/15/21 [History] Ezetimibe [Zetia] 10 mg PO DAILY 10/01/23 [History] Fluticasone/Vilanterol [Breo Ellipta 200-25 Mcg Inhaler] 1 puff INHALATION RT- BID 10/01/23 [History] Levothyroxine Sodium [Synthroid] 75 mcg PO SUSA 10/01/23 [History] Levothyroxine Sodium [Synthroid] 150 mcg PO MOTUWETHFR 10/01/23 [History] Pregabalin [Lyrica] 100 mg PO DIRECTED 10/01/23 [History] diphenhydrAMINE [Benadryl] 25 mg PO QID PRN 10/01/23 [History] rOPINIRole HCL [Requip] 1 mg PO HS 10/01/23 [History] rOPINIRole HCL [Requip] 2 mg PO HS 10/01/23 [History] Doxycycline [Vibramycin] 100 mg PO BID 2 Days #4 cap 10/05/23 [Rx] Metoprolol Tartrate [Lopressor] 25 mg PO BID 30 Days #60 tab 10/05/23 [Rx] guaiFENesin [Mucinex] 600 mg PO Q12HR 5 Days #10 tab 10/05/23 [Rx] predniSONE [Deltasone] 20 mg PO DAILY 3 Days #3 tab 10/05/23 [Rx] Follow up Appointment(s)/Referral(s): Aleisha Bergman MD [STAFF PHYSICIAN] - 1 Week Jacob Santamaria DO [Primary Care Provider] - 1-2 days Discharge Disposition: HOME SELF-CARE
[2023-10-05 11:55] VITALS: PULSE 80
--- NOTE | 2023-10-05 11:57 | P.PN ---
Subjective Progress Note Date: 10/05/23 This is a very pleasant 63-year-old female patient with a known history of hypothyroidism, hyperlipidemia, chronic obstructive pulmonary disease, chronic and ongoing tobacco dependence of greater than 40 years of greater than 40 years. Yesterday she developed an acute episode of left lower anterior chest wall pain. She denied any trauma. She has been coughing but no more than usual according to her. Chest x-ray revealed no acute cardiopulmonary process. CT angiogram ruled out pulmonary embolism. There is some scattered groundglass opacities throughout the lungs possibly infectious/inflammatory process. Emphysema noted. CT scan of the abdomen and pelvis revealed no acute process. Fibroid uterus. Colonic diverticulosis. She is seen today in consultation in the emergency department. She is sitting up in a stretcher. Awake and alert in no acute distress. She states the pain is improved today compared to yesterday. She does have palpable chest wall/musculoskeletal pain. She denies any worsening shortness of breath, cough or congestion. No fever. White count 14.6. Hemoglobin 13.0. Platelets 299. Sodium 135. Potassium 4.1. Bicarb 25. BUN 7. Creatinine 0.57. Troponins were negative x 3. Procalcitonin negative at 0.03. Viral screen negative. The patient is seen today October 03, 2023 in follow-up on the regular medical floor. Is currently sitting up in bed. Awake and alert in no acute distress. She is still having some ongoing left lower chest wall discomfort. Her procalcitonin was negative at 0.03. She is maintaining good O2 saturations in the 90s on 2 L/min per nasal cannula. Afebrile. Hemodynamically stable. Cultures revealing no growth. White count 6.3. Hemoglobin 10.4. Platelets 249. Sodium 141. Potassium 4.2. Bicarb 26. BUN 7. Creatinine 0.5. She is continued on DuoNeb ventilations, Symbicort, Medrol Dosepak. Lovenox for DVT prophylaxis. Doxycycline as empiric antibiotic. The patient is seen today October 04, 2023 in follow-up on the regular medical floor. She is sitting up in bed. Awake and alert in no acute distress. Denies any worsening shortness of breath, cough or congestion. Denies any chest pain. She is feeling quite a bit better. She is continued on DuoNeb inhalations, Symbicort, Medrol Dosepak. Antibiotics in the form of doxycycline. Lovenox for DVT prophylaxis. Blood cultures revealed no growth. White count 5.1. Hemoglobin 9.6. Platelets 248. Sodium 141. Potassium 4.2. Bicarb 28. BUN 11. Creatinine 0.7. The patient is seen today October 05, 2023 in follow-up on the regular medical floor. She is awake and alert in no acute distress. Denies any worsening shortness of breath, cough or congestion. Maintaining good O2 saturations in the 90s on room air. She is continued on DuoNeb inhalations, Symbicort, Medrol Dosepak. Empiric antibiotics in the form of Vibramycin. Continued on Lovenox for DVT prophylaxis. Mucinex as needed. Blood cultures revealed no growth. White count 5.8. Hemoglobin 10.4. Platelets 267. Sodium 140. Potassium 4.0. Bicarb 26. BUN 8. Creatinine 0.7. Objective - Vital Signs Vital signs: Vital Signs Temp 98.1 F 10/05/23 07:10 Pulse 80 10/05/23 11:37 Resp 16 10/05/23 07:10 BP 136/83 10/05/23 07:10 Pulse Ox 95 10/05/23 07:48 FiO2 - Exam GENERAL EXAM: Alert, pleasant 63-year-old female, sitting up in a chair, on room air, in no apparent distress. HEAD: Normocephalic. EYES: Normal reaction of pupils, equal size. NOSE: Clear with pink turbinates. THROAT: No erythema or exudates. NECK: No masses, no JVD. CHEST: No chest wall deformity. LUNGS: Equal air entry with no crackles, wheeze, rhonchi or dullness. CVS: S1 and S2 normal with no audible murmur, regular rhythm. ABDOMEN: No hepatosplenomegaly, normal bowel sounds, no guarding or rigidity. SPINE: No scoliosis or deformity SKIN: No rashes CENTRAL NERVOUS SYSTEM: No focal deficits, tone is normal in all 4 extremities. EXTREMITIES: There is no peripheral edema. No clubbing, no cyanosis. Peripheral pulses are intact. - Labs CBC & Chem 7: 10/05/23 06:29 10/05/23 06:29 Labs: Abnormal Lab Results - Last 24 Hours (Table) 02/15/24 02/15/24 Range/Units 06:29 06:29 RBC 3.43 L (4.10-5.20) X 10*6/uL Hgb 10.4 L (12.0-15.0) g/dL Hct 31.7 L (37.2-46.3) % BUN 8.1 L (9.0-27.0) mg/dL BUN/Creatinine Ratio 11.57 L (12.00-20.00) Ratio Microbiology - Last 24 Hours (Table) 10/01/23 18:45 Blood Culture - Preliminary Blood 10/01/23 18:30 Blood Culture - Preliminary Blood Assessment and Plan Assessment: Atypical chest pain. Suspect musculoskeletal pain possibly from coughing. Pain is reproducible on palpation. Troponins are negative x 3. Cough may be related to bronchitis. CT angiogram ruled out pulmonary embolism. There is some scattered groundglass opacities throughout the lungs. Currently on doxycycline. Chronic obstructive pulmonary disease, currently inactive and stable Hyperlipidemia Hypothyroidism Chronic and ongoing tobacco dependence History of osteoarthritis History of anxiety Plan: The patient was seen and evaluated Labs and medications reviewed Cleared for discharge from the pulmonary standpoint Continue her home pulmonary medications Complete a Medrol Dosepak Complete a course of doxycycline Follow-up in our office in 1 week This patient was seen independently by the pulmonary nurse practitioner addressing pulmonary issues I have personally seen and examined the patient, performed the documentation and the assessment and plan as written. Number of minutes spent on the visit: 20.
[2023-10-07] MEDS ORDERED: LEVOTHYROXINE 75 MCG TAB PO SCH (06:30)
== END 2023-10-05 13:41 | disposition home or self-care (01) | DRG 190 ==
LOC: EC 16:44 → 3SCARD 18:40 → 4SSUR 10-02 09:35 → 5NMEDONC 10-02 16:47
PROVIDERS: ADMIT Internal Medicine; ATTEND Internal Medicine
DX: J44.1 Chronic obstructive pulmonary disease with (acute) exacerbation (principal); J18.9 Pneumonia, unspecified organism; I47.19 Other supraventricular tachycardia; J44.0 Chronic obstructive pulmonary disease with (acute) lower respiratory infection; E03.9 Hypothyroidism, unspecified; G89.29 Other chronic pain; F17.210 Nicotine dependence, cigarettes, uncomplicated; D25.9 Leiomyoma of uterus, unspecified; K57.30 Diverticulosis of large intestine without perforation or abscess without bleeding; M19.90 Unspecified osteoarthritis, unspecified site; F41.9 Anxiety disorder, unspecified; M54.9 Dorsalgia, unspecified; E78.5 Hyperlipidemia, unspecified; R09.02 Hypoxemia; Z79.51 Long term (current) use of inhaled steroids; Z79.899 Other long term (current) drug therapy; Z79.890 Hormone replacement therapy; Z88.1 Allergy status to other antibiotic agents; Z85.41 Personal history of malignant neoplasm of cervix uteri; Z11.52 Encounter for screening for COVID-19; Z90.89 Acquired absence of other organs
CPT/HCPCS: 36415; 71045; 71275; 74177; 80048; 80053; 83605; 83735; 84145; 84484; 85025; 85027; 85610; 85730; 87040; 87449; 87636; 93005; 94640; 94760; 96361; 96368; 96372; 96374; 96375; 96376; 99285

== ENCOUNTER → 2024-05-09 | Outpatient (CLI) | payer MEDICARE, OTHER ==
--- NOTE | 2024-05-20 21:40 | BD ---
EXAMINATION TYPE: Axial Bone Density DATE OF EXAM: 05/09/2024 CLINICAL HISTORY: 63 years old Female. ICD-10 CODE: Z78.0 ASYMPTOMATIC MENOPAUSAL STATE Height: 61 Weight: 130.0 FRAX RISK QUESTIONS: Alcohol (3 or more units per day): no Family History (Parent hip fracture): no Glucocorticoids (More than 3mos): no (Ex: prednisone, prednisolone, methylprednisolone, dexamethasone, and hydrocortisone). History of Fracture in Adulthood: no Secondary Osteoporosis: 1. Type 1 Diabetes: no 2. Hyperthyroidism: yes about 2000 3. Menopause before 45: no 4. Malnutrition: no 5. Chronic liver disease: no Rheumatoid Arthritis: no Current Tobacco Use: yes RISK FACTORS HISTORY OF: Hip Fracture (Right/Left): no Spine Fracture: no History of Wrist Fracture: no Surgery to Spine/Hip(right/left)/Wrist (right/left): no MEDICATIONS: Thyroid Medications: Levothyroxine How Long: since 2000 Osteoporosis Medications: no EXAM MEASUREMENTS: Bone mineral densitometry was performed using the [employer] com System. Bone mineral density as measured about the Lumbar spine is: ----- L1-L4(G/cm2): 1.015 T Score Values are as follows: ----- L1: -2.7 ----- L2: -1.4 ----- L3: -0.5 ----- L4: -1.1 ----- L1-L4: -1.4 Z Score Values are as follows: ----- L1: -0.9 ----- L2: 0.4 ----- L3: 1.3 ----- L4: 0.7 ----- L1-L4: 0.4 Baseline Study Bone mineral density about the R hip (g/cm2): 0.772 Bone mineral density about the L hip (g/cm2): 0.758 T Score values are as follows: -----R Neck: -2.3 -----L Neck: -2.4 -----R Total: -1.9 -----L Total: -2.0 Z Score values are as follows: -----R Neck: -0.7 -----L Neck: -0.8 -----R Total: -0.5 -----L Total: -0.6 Baseline Study FRAX%s: The graph provided illustrates a 14.4% chance for a major osteoporotic fx and a 4.8% chance f or the hips probability for fx in 10 years time. IMPRESSION: Osteopenia (T Score between -2.5 and -1). There is slightly increased risk of fracture and the patient may be considered for treatment. Re-Screen 2-5 years. NOTE: T-SCORE=SD OF THE YOUNG ADULT MEAN. [facility], , 05/20/2024 9:37 PM
== END | disposition home or self-care (01) ==
LOC: RADBDWWP 14:24
PROVIDERS: ATTEND Family Medicine
DX: Z78.0 Asymptomatic menopausal state
CPT/HCPCS: 77080

== ENCOUNTER 2024-08-04 22:10 | Emergency (ER) | payer MEDICARE, OTHER ==
[2024-08-04 22:14] VITALS: TEMP 98.5
[2024-08-04 22:40] LABS: Appearance,Urine Clear (Clear); Bilirubin,Urine Negative (Negative); Blood,Urine Negative (Negative); Color,Urine Light Yellow; Glucose,Urine (UA) Negative (Negative); Ketones,Urine Negative (Negative); Leukocyte Esterase,Urine Negative (Negative); Nitrite,Urine Negative (Negative); PH, Urine 5.5 (5.0-8.0); Protein,Urine Negative (Negative); Specific Gravity,Urine 1.019 (1.001-1.035); Urobilinogen,Urine <2.0 mg/dL (<2.0)
[2024-08-04 22:47] LABS: Basophils # (A) 0.1 k/uL (0-0.2); Basophils % (A) 1 %; Eosinophils # (A) 0.1 k/uL (0-0.7); Eosinophils % (A) 1 %; HCT 42.4 % (34.0-46.0); HGB 13.7 gm/dL (11.4-16.0); Lymphocytes # (A) 2.1 k/uL (1.0-4.8); Lymphocytes % (A) 32 %; MCH 30.4 pg (25.0-35.0); MCHC 32.3 g/dL (31.0-37.0); MCV 94.2 fL (80.0-100.0); Mean Platelet Volume 7.8; Monocytes # (A) 0.4 k/uL (0-1.0); Monocytes % (A) 6 %; Neutrophils # (A) 3.8 k/uL (1.3-7.7); Neutrophils % (A) 57 %; Platelet Count 274 k/uL (150-450); RBC 4.51 m/uL (3.80-5.40); RDW 13.1 % (11.5-15.5); WBC 6.6 k/uL (3.8-10.6)
[2024-08-04 22:50] LABS: ALT 25 U/L (4-34); African American GFR (CKD) >90 (>60 ml/min/1.73 sqM); Albumin 4.3 g/dL (3.5-5.0); Amylase 61 U/L (30-110); Anion Gap 6 mmol/L; Blood Urea Nitrogen 10 mg/dL (7-17); Calcium 9.5 mg/dL (8.4-10.2); Carbon Dioxide 21 mmol/L (22-30); Chloride 109 mmol/L (98-107); Glucose 95 mg/dL (74-99); Lipase 32 U/L (23-300); Non-African American GFR(CKD) >90 (>60 ml/min/1.73 sqM); Sodium 136 mmol/L (137-145); Total Bilirubin 0.4 mg/dL (0.2-1.3); Total Protein 6.9 g/dL (6.3-8.2)
[2024-08-04 22:51] LABS: AST 28 U/L (14-36); Alkaline Phosphatase 93 U/L (38-126); Potassium 4.5 mmol/L (3.5-5.1)
[2024-08-04] MEDS: KETOROLAC 15 MG/ML 1 ML VIAL IVP STA (23:17)
--- NOTE | 2024-08-04 23:23 | CT ---
EXAMINATION TYPE: CT abdomen pelvis w con DATE OF EXAM: 08/04/2024 HISTORY: Pt. c/o RLQ and right flank pain x3 days with intermittent nausea. CT DLP: 612.7mGycm Automated Exposure Control for Dose Reduction was Utilized. CONTRAST: CT scan of the abdomen and pelvis is performed with IV Contrast, patient injected with 100mL mL of Is ovue 300. COMPARISON: Prior CT October 01, 2023 FINDINGS: LUNG BASES: No significant abnormality is appreciated. LIVER/GB: No significant abnormality is appreciated. PANCREAS: No significant abnormality is seen. SPLEEN: No significant abnormality is seen. ADRENALS: No significant abnormality is seen. KIDNEYS: Symmetric uptake and excretion without hydronephrosis seen bilaterally. BOWEL: Sigmoid colonic diverticula are present. No CT evidence for acute diverticulitis. Moderate fec al prominence in the right colon. No abnormal small or large bowel dilatation. UTERUS/ADNEXA: There is 5.6 x 3.9 cm left sided calcified fibroid in the uterus axial image 61 redemo nstrated. LYMPH NODES: No greater than 1cm abdominal or pelvic lymph nodes are appreciated. OSSEOUS STRUCTURES: Mild to moderate multilevel spurring and disc space narrowing in the lumbar spine . OTHER: There is moderate peripheral calcified plaque of the aorta extends into branch vessels. IMPRESSION: Moderate proximal colonic fecal stasis or constipation. No bowel obstruction. Otherwise n o suspicious new or acute finding present. [facility], , 08/04/2024 11:21 PM
--- NOTE | 2024-08-04 23:47 | ED ---
Abdominal Pain HPI - General Chief Complaint: Abdominal Pain Stated Complaint: R Flank Pain Time Seen by Provider: 08/04/24 22:15 Source: patient Mode of arrival: ambulatory Limitations: no limitations - History of Present Illness Initial Comments: 64-year-old female with past medical history of COPD, chronic neck and back pain, cervical cancer in remission who presents emergency department with right- sided flank pain. States that been going on for the past 3 days and is getting worse. Reports that it is in the right lower quadrant and radiates around to her back. Has intermittent nausea. Denies being able to reproduce the pain. It waxes and wanes in severity. No associated urinary symptoms to include dysuria, hematuria or difficulty voiding. Denies diarrhea, constipation, black or bloody stools. No vomiting. No history of kidney stones. No vaginal bleeding or discharge. Denies any chest pain or shortness of breath. No other alleviating, precipitating or modifying factors - Related Data Home Medications Medication Instructions Recorded Confirmed Ibuprofen [Motrin] 600 mg PO Q8HR PRN 04/18/15 10/01/23 Simvastatin [Zocor] 40 mg PO HS 01/31/18 10/01/23 Albuterol Inhaler [Ventolin Hfa 2 puff INHALATION RT-Q6H PRN 10/06/18 10/01/23 Inhaler] Budesonide-Formot 160-4.5 Mcg 2 puff INHALATION RT-BID 12/24/18 10/01/23 [Symbicort 160-4.5 Mcg Inhaler] Calcium Carbonate [Calcium] 600 mg PO DAILY 11/15/21 10/01/23 Desvenlafaxine [Pristiq ER] 100 mg PO DAILY 11/15/21 10/01/23 HYDROcodone/APAP 7.5-325MG [[place] 1 tab PO Q8H PRN 11/15/21 10/01/23 7.5-325] Umeclidinium [place] [Incruse 1 puff INHALATION RT-DAILY 11/15/21 10/01/23 Ellipta] Ezetimibe [Zetia] 10 mg PO DAILY 10/01/23 10/01/23 Fluticasone/Vilanterol [Breo 1 puff INHALATION RT-BID 10/01/23 10/01/23 Ellipta 200-25 Mcg Inhaler] Levothyroxine Sodium [Synthroid] 75 mcg PO SUSA 10/01/23 10/01/23 Levothyroxine Sodium [Synthroid] 150 mcg PO MOTUWETHFR 10/01/23 10/01/23 Pregabalin [Lyrica] 100 mg PO DIRECTED 10/01/23 10/01/23 diphenhydrAMINE [Benadryl] 25 mg PO QID PRN 10/01/23 10/01/23 rOPINIRole HCL [Requip] 1 mg PO HS 10/01/23 10/01/23 rOPINIRole HCL [Requip] 2 mg PO HS 10/01/23 10/01/23 Previous Rx's Medication Instructions Recorded Doxycycline [Vibramycin] 100 mg PO BID 2 Days #4 cap 10/05/23 Metoprolol Tartrate [Lopressor] 25 mg PO BID 30 Days #60 tab 10/05/23 guaiFENesin [Mucinex] 600 mg PO Q12HR 5 Days #10 tab 10/05/23 predniSONE [Deltasone] 20 mg PO DAILY 3 Days #3 tab 10/05/23 Allergies Allergy/AdvReac Type Severity Reaction Status Date / Time mupirocin [From Bactroban] Allergy Rash/Hives Verified 08/04/24 22:14 Review of Systems ROS Statement: Those systems with pertinent positive or pertinent negative responses have been documented in the HPI. ROS Other: All systems not noted in ROS Statement are negative. Past Medical History Past Medical History: Cancer, COPD, Hyperlipidemia, Musculoskeletal Disorder, Osteoarthritis (OA), Thyroid Disorder Additional Past Medical History / Comment(s): Chronic pain to neck and back, carpel tunnel, hx cervical cancer -no chemo or radiation, having MRI 04/23/21, Osteopenia. History of Any Multi-Drug Resistant Organisms: None Reported Past Surgical History: Tubal Ligation Additional Past Surgical History / Comment(s): Carpal tunnel surgey, partial thyroidectomy, hysteroscopy. Past Anesthesia/Blood Transfusion Reactions: No Reported Reaction Past Psychological History: Anxiety Smoking Status: Current every day smoker Past Alcohol Use History: None Reported Past Drug Use History: None Reported - Past Family History Mother Family Medical History: Cancer Additional Family Medical History / Comment(s): Skin Cancer. Father Family Medical History: Cancer Additional Family Medical History / Comment(s): Skin Cancer. General Exam Limitations: no limitations General appearance: alert, in no apparent distress Head exam: Present: atraumatic, normocephalic, normal inspection Eye exam: Present: normal appearance, PERRL, EOMI. Absent: scleral icterus, conjunctival injection, periorbital swelling ENT exam: Present: normal exam, mucous membranes moist Neck exam: Present: normal inspection. Absent: tenderness, meningismus, lymphadenopathy Respiratory exam: Present: normal lung sounds bilaterally. Absent: respiratory distress, wheezes, rales, rhonchi, stridor Cardiovascular Exam: Present: regular rate, normal rhythm, normal heart sounds. Absent: systolic murmur, diastolic murmur, rubs, gallop, clicks GI/Abdominal exam: Present: soft, tenderness (Mild tenderness right periumbilical region), normal bowel sounds. Absent: distended, guarding, rebound, rigid Extremities exam: Present: normal inspection, full ROM, normal capillary refill. Absent: tenderness, pedal edema, joint swelling, calf tenderness Back exam: Present: normal inspection Neurological exam: Present: alert, oriented X3, CN II-XII intact Psychiatric exam: Present: normal affect, normal mood Skin exam: Present: warm, dry, intact, normal color. Absent: rash Course Vital Signs 08/04/24 08/05/24 22:11 00:31 Temperature 98.5 F Pulse Rate 96 71 Respiratory 18 16 Rate Blood Pressure 166/87 128/78 O2 Sat by Pulse 98 98 Oximetry Medical Decision Making - Medical Decision Making Was pt. sent in by a medical professional or institution (, PA, SLOT MACHINE KEY PERSON, urgent care, hospital, or senior care...) When possible be specific @ -No Did you speak to anyone other than the patient for history (EMS, parent, family, police, friend...)? What history was obtained from this source @ -No Did you review nursing and triage notes (agree or disagree)? Why? @ -I reviewed and agree with nursing and triage notes Were old charts reviewed (outside hosp., previous admission, EMS record, old EKG, old radiological studies, urgent care reports/EKG's, senior care records)? Report findings @ -No old charts were reviewed Differential Diagnosis (chest pain, altered mental status, abdominal pain women, abdominal pain men, vaginal bleeding, weakness, fever, dyspnea, syncope, headache, dizziness, GI bleed, back pain, seizure, CVA, palpatations, mental health, musculoskeletal)? @ -Differential Abdominal Pain Women: Appendicitis, Cholecystitis, diverticulosis, ischemic bowel, pancreatitis, hepat itis, UTI, gastroenteritis, AAA, incarcerated hernia, bowel obstruction, constipation, inflammatory bowel, hepatitis, peptic ulcer disease, splenic infarction, perforated viscus, vulvitis, ovarian torsion, PID, kidney stone, placenta abruption, this is not meant to be an all-inclusive list EKG interpreted by me (3pts min.). @ -Not done X-rays interpreted by me (1pt min.). @ -None done CT interpreted by me (1pt min.). @ -Yes and demonstrates significant colonic stasis on the right side. U/S interpreted by me (1pt. min.). @ -None done What testing was considered but not performed or refused? (CT, X-rays, U/S, labs)? Why? @ -None What meds were considered but not given or refused? Why? @ -None Did you discuss the management of the patient with other professionals (professionals i.e. , PA, SLOT MACHINE KEY PERSON, lab, RT, psych nurse, social services coordinator, car painter, teacher, horticultural technical officer, case advocate)? Give summary @ -No Was smoking cessation discussed for >3mins.? @ -No Was critical care preformed (if so, how long)? @ -No Were there social determinants of health that impacted care today? How? (Homel essness, low income, unemployed, alcoholism, drug addiction, transportation, low edu. Level, literacy, decrease access to med. care, snf, rehab)? @ -No Was there de-escalation of care discussed even if they declined (Discuss DNR or withdrawal of care, Hospice)? DNR status @ -No What co-morbidities impacted this encounter? (DM, HTN, Smoking, COPD, CAD, Cancer, CVA, ARF, Chemo, Hep., AIDS, mental health diagnosis, sleep apnea, morbid obesity)? @ -None Was patient admitted / discharged? Hospital course, mention meds given and route, prescriptions, significant lab abnormalities, going to OR and other pertinent info. @ -Upon arrival patient seen and evaluated in the waiting room as there is a shortage of beds. IV was placed. Patient was given 15 mg of Toradol. Laboratory studies are conducted. Patient does go for CT. CT does demonstrate large stool burden on the ascending colon. Results are discussed with patient. She will be treated with magnesium citrate. She will be discharged home and instructed to drink half the bottle. Wait 4 hours. If she does not have a bowel movement, drink the second half. Patient is requesting medications for pain control. I did give her a starter pack of Tylenol threes but states that this is for immense pain only as this may contribute to her constipation. Patient was aware of this. She is to follow-up with her doctor in 2 to 4 days. Return for any new or worsening symptoms. Patient discharged home in stable condition Undiagnosed new problem with uncertain prognosis? @ -No Drug Therapy requiring intensive monitoring for toxicity (Heparin, Nitro, Insulin, Cardizem)? @ -No Were any procedures done? @ -No Diagnosis/symptom? @ -Acute right-sided abdominal pain, acute constipation Acute, or Chronic, or Acute on Chronic? @ -Acute Uncomplicated (without systemic symptoms) or Complicated (systemic symptoms)? @ -Complicated Side effects of treatment? @ -No Exacerbation, Progression, or Severe Exacerbation? @ -No Poses a threat to life or bodily function? How? (Chest pain, USA, [place], pneumonia, PE, COPD, DKA, ARF, appy, cholecystitis, CVA, Diverticulitis, Homicidal, Suicidal, threat to staff... and all critical care pts) @ -No - Lab Data Result diagrams: 08/04/24 22:30 08/04/24 22:30 Lab Results 08/04/24 08/04/24 08/04/24 Range/Units 22:30 22:30 22:30 WBC 6.6 (3.8-10.6) k/uL RBC 4.51 (3.80-5.40) m/uL Hgb 13.7 (11.4-16.0) gm/dL Hct 42.4 (34.0-46.0) % MCV 94.2 (80.0-100.0) fL MCH 30.4 (25.0-35.0) pg MCHC 32.3 (31.0-37.0) g/dL RDW 13.1 (11.5-15.5) % Plt Count 274 (150-450) k/uL MPV 7.8 Neutrophils % 57 % Lymphocytes % 32 % Monocytes % 6 % Eosinophils % 1 % Basophils % 1 % Neutrophils # 3.8 (1.3-7.7) k/uL Lymphocytes # 2.1 (1.0-4.8) k/uL Monocytes # 0.4 (0-1.0) k/uL Eosinophils # 0.1 (0-0.7) k/uL Basophils # 0.1 (0-0.2) k/uL Sodium 136 L (137-145) mmol/L Potassium 4.5 (3.5-5.1) mmol/L Chloride 109 H (98-107) mmol/L Carbon Dioxide 21 L (22-30) mmol/L Anion Gap 6 mmol/L BUN 10 (7-17) mg/dL Creatinine 0.64 (0.52-1.04) mg/dL Est GFR (CKD-EPI)AfAm >90 (>60 ml/min/1.73 sqM) Est GFR (CKD-EPI)NonAf >90 (>60 ml/min/1.73 sqM) Glucose 95 (74-99) mg/dL Plasma Lactic Acid Jose 1.5 (0.7-2.0) mmol/L Calcium 9.5 (8.4-10.2) mg/dL Total Bilirubin 0.4 (0.2-1.3) mg/dL AST 28 (14-36) U/L ALT 25 (4-34) U/L Alkaline Phosphatase 93 (38-126) U/L Total Protein 6.9 (6.3-8.2) g/dL Albumin 4.3 (3.5-5.0) g/dL Amylase 61 (30-110) U/L Lipase 32 (23-300) U/L Urine Color Urine Appearance (Clear) Urine pH (5.0-8.0) Ur Specific [place] (1.001-1.035) Urine Protein (Negative) Urine Glucose (UA) (Negative) Urine Ketones (Negative) Urine Blood (Negative) Urine Nitrite (Negative) Urine Bilirubin (Negative) Urine Urobilinogen (<2.0) mg/dL Ur Leukocyte Esterase (Negative) 08/04/24 Range/Units 22:30 WBC (3.8-10.6) k/uL RBC (3.80-5.40) m/uL Hgb (11.4-16.0) gm/dL Hct (34.0-46.0) % MCV (80.0-100.0) fL MCH (25.0-35.0) pg MCHC (31.0-37.0) g/dL RDW (11.5-15.5) % Plt Count (150-450) k/uL MPV Neutrophils % % Lymphocytes % % Monocytes % % Eosinophils % % Basophils % % Neutrophils # (1.3-7.7) k/uL Lymphocytes # (1.0-4.8) k/uL Monocytes # (0-1.0) k/uL Eosinophils # (0-0.7) k/uL Basophils # (0-0.2) k/uL Sodium (137-145) mmol/L Potassium (3.5-5.1) mmol/L Chloride (98-107) mmol/L Carbon Dioxide (22-30) mmol/L Anion Gap mmol/L BUN (7-17) mg/dL Creatinine (0.52-1.04) mg/dL Est GFR (CKD-EPI)AfAm (>60 ml/min/1.73 sqM) Est GFR (CKD-EPI)NonAf (>60 ml/min/1.73 sqM) Glucose (74-99) mg/dL Plasma Lactic Acid Jose (0.7-2.0) mmol/L Calcium (8.4-10.2) mg/dL Total Bilirubin (0.2-1.3) mg/dL AST (14-36) U/L ALT (4-34) U/L Alkaline Phosphatase (38-126) U/L Total Protein (6.3-8.2) g/dL Albumin (3.5-5.0) g/dL Amylase (30-110) U/L Lipase (23-300) U/L Urine Color Light Yellow Urine Appearance Clear (Clear) Urine pH 5.5 (5.0-8.0) Ur Specific [place] 1.019 (1.001-1.035) Urine Protein Negative (Negative) Urine Glucose (UA) Negative (Negative) Urine Ketones Negative (Negative) Urine Blood Negative (Negative) Urine Nitrite Negative (Negative) Urine Bilirubin Negative (Negative) Urine Urobilinogen <2.0 (<2.0) mg/dL Ur Leukocyte Esterase Negative (Negative) Disposition Clinical Impression: Abdominal pain, Constipation Disposition: HOME SELF-CARE Condition: Stable Instructions (If sedation given, give patient instructions): Abdominal Pain (ED) Additional Instructions: Please drink half the bottle of the magnesium citrate. Wait 4 hours. If you do not have a bowel movement, drink the second half. The Tylenol threes are to be used only as needed for extreme pain as they may cause further constipation. Return to the emergency department for any new or worsening symptoms Is patient prescribed a controlled substance at d/c from ED?: No Referrals: Jacob Santamaria DO [Primary Care Provider] - 1-2 days Time of Disposition: 00:13
[2024-08-05] MEDS: MORPHINE SULFATE 4 MG/ML SYRINGE IVP STA (00:26)
[2024-08-05] MEDS: ACET/COD 300 MG/30 MG STARTER PACK 6 TAB BTL PO STA (00:26)
[2024-08-05] MEDS: MAGNESIUM CITRATE 296 ML BOTTLE PO ONE (00:31)
[2024-08-05 00:32] VITALS: BP 128/78; PULSE 71; RESP 16
== END 2024-08-05 00:32 | disposition home or self-care (01) ==
LOC: EC 22:10
DX: K59.00 Constipation, unspecified (principal); R10.31 Right lower quadrant pain; F17.200 Nicotine dependence, unspecified, uncomplicated; Z88.8 Allergy status to other drugs, medicaments and biological substances
CPT/HCPCS: 36415; 80053; 82150; 83605; 83690; 85025; 81003; 74177; 99284; 96374; 96375; J1885; Q9967

== ENCOUNTER 2025-03-04 22:31 | Observation (INO) | payer MEDICARE, OTHER ==
--- NOTE | 2025-03-04 22:40 | ED ---
Chest Pain HPI - General Chief Complaint: Chest Pain Stated Complaint: Chest Pain Time Seen by Provider: 03/04/25 22:39 Source: patient, RN notes reviewed, old records reviewed Mode of arrival: ambulatory Limitations: no limitations - History of Present Illness Initial Comments: This is a 64-year-old female to the ER with chest pain for 1 hour, dullness on the chest symptoms persistent. No dyspnea history of cancer history of COPD history of high cholesterol no history of heart disease. No recent fever cough or congestion. No shortness of breath MD Complaint: chest pain -: hour(s) (1) Onset: during rest, during exertion Pain Location: substernal Pain Radiation: none Severity: mild Severity scale (1-10): 2 Quality: dull Consistency: constant Improves With: nothing Worsens With: nothing Other Symptoms: palpitations Treatments Prior to Arrival: none - Related Data Home Medications Medication Instructions Recorded Confirmed Simvastatin [Zocor] 40 mg PO HS 01/31/18 03/05/25 Albuterol Inhaler [Ventolin Hfa 2 puff INHALATION RT-Q6H PRN 10/06/18 03/05/25 Inhaler] Desvenlafaxine [Pristiq ER] 100 mg PO DAILY 11/15/21 03/05/25 HYDROcodone/APAP 7.5-325MG [[place] 1 tab PO Q8H PRN 11/15/21 03/05/25 7.5-325] Ezetimibe [Zetia] 10 mg PO DAILY 10/01/23 03/05/25 Levothyroxine Sodium [Synthroid] 75 mcg PO TUTHSA 10/01/23 03/05/25 Levothyroxine Sodium [Synthroid] 150 mcg PO SUMOWEFR 10/01/23 03/05/25 rOPINIRole HCL [Requip] 2 mg PO HS 10/01/23 03/05/25 Butalb/APAP/Caff 50-325-40Mg 1 tab PO DAILY PRN 03/05/25 03/05/25 [Fioricet 50-325-40] Desvenlafaxine Succinate [Pristiq 50 mg PO DAILY 03/05/25 03/05/25 ER] Fluticasone/Umeclidin/Vilanter 1 puff INHALATION RT-DAILY 03/05/25 03/05/25 [Trelegy Ellipta 200-62.5-25] Losartan [Cozaar] 50 mg PO DAILY 03/05/25 03/05/25 Pregabalin [Lyrica] 50 mg PO BID 03/05/25 03/05/25 Previous Rx's Medication Instructions Recorded Aspirin 81 mg PO DAILY #30 tab 03/06/25 Allergies Allergy/AdvReac Type Severity Reaction Status Date / Time mupirocin [From Bactroban] Allergy Rash/Hives Verified 03/05/25 07:46 Review of Systems ROS Statement: Those systems with pertinent positive or pertinent negative responses have been documented in the HPI. ROS Other: All systems not noted in ROS Statement are negative. EKG Findings - EKG Comments: EKG Findings:: EKG is sinus 76 PA 163 QRS 78 QTc 374 - EKG Results: EKG: interpreted by LENNY Past Medical History Past Medical History: Cancer, COPD, Hyperlipidemia, Musculoskeletal Disorder, Osteoarthritis (OA), Thyroid Disorder Additional Past Medical History / Comment(s): Chronic pain to neck and back, carpel tunnel, hx cervical cancer -no chemo or radiation, having MRI 04/23/21, Osteopenia. History of Any Multi-Drug Resistant Organisms: None Reported Past Surgical History: Tubal Ligation Additional Past Surgical History / Comment(s): Carpal tunnel surgey, partial thyroidectomy, hysteroscopy. Past Anesthesia/Blood Transfusion Reactions: No Reported Reaction Past Psychological History: Anxiety Smoking Status: Current every day smoker Past Alcohol Use History: None Reported Past Drug Use History: None Reported - Past Family History Mother Family Medical History: Cancer Additional Family Medical History / Comment(s): Skin Cancer. Father Family Medical History: Cancer Additional Family Medical History / Comment(s): Skin Cancer. General Exam Limitations: no limitations General appearance: alert, in no apparent distress Head exam: Present: atraumatic, normocephalic, normal inspection Eye exam: Present: normal appearance, PERRL, EOMI. Absent: scleral icterus, conjunctival injection, periorbital swelling ENT exam: Present: normal exam, mucous membranes moist Neck exam: Present: normal inspection. Absent: tenderness, meningismus, lymphadenopathy Respiratory exam: Present: normal lung sounds bilaterally. Absent: respiratory distress, wheezes, rales, rhonchi, stridor Cardiovascular Exam: Present: regular rate, normal rhythm, normal heart sounds. Absent: systolic murmur, diastolic murmur, rubs, gallop, clicks GI/Abdominal exam: Present: soft, normal bowel sounds. Absent: distended, tenderness, guarding, rebound, rigid Extremities exam: Present: normal inspection, full ROM, normal capillary refill. Absent: tenderness, pedal edema, joint swelling, calf tenderness Back exam: Present: normal inspection Neurological exam: Present: alert, oriented X3, CN II-XII intact Psychiatric exam: Present: normal affect, normal mood Skin exam: Present: warm, dry, intact, normal color. Absent: rash Course Vital Signs 03/04/25 03/04/25 03/05/25 22:32 23:59 00:05 Temperature 98.4 F Pulse Rate 81 73 Respiratory 18 20 Rate Blood Pressure 185/94 134/117 O2 Sat by Pulse 97 97 Oximetry 03/05/25 03/05/25 02:51 05:51 Temperature 97.9 F Pulse Rate 80 81 Respiratory 19 18 Rate Blood Pressure 142/75 127/83 O2 Sat by Pulse 95 97 Oximetry - Reevaluation(s) Reevaluation #1: 03/04/25 22:50 Medical records reviewed Reevaluation #2: 03/05/25 02:39 Patient still with chest pain requiring pain medication Reevaluation #3: 03/05/25 02:39 Patient informed of results questions answered Reevaluation #4: Was pt. sent in by a medical professional or institution (, PA, CORE SHAPER TOP, urgent care, hospital, or group home...) When possible be specific @ -no Did you speak to anyone other than the patient for history (EMS, parent, family, police, friend...)? What history was obtained from this source @ -no Did you review nursing and triage notes (agree or disagree)? Why? @ -agree Are old charts reviewed (outside hosp., previous admission, EMS record, old EKG, old radiological studies, urgent care reports/EKG's, group home records)? Report findings @ -yes Differential Diagnosis (chest pain, altered mental status, abdominal pain women, abdominal pain men, vaginal bleeding, weakness, fever, dyspnea, syncope, headache, dizziness, GI bleed, back pain, seizure, CVA, palpatations, mental health, musculoskeletal)? @ -prior EKG interpreted by me (3pts min.). @ -yes X-rays interpreted by me (1pt min.). @ -yes negative for acute disease CT interpreted by me (1pt min.). @ -yes negative for acute disease U/S interpreted by me (1pt. min.). @ -no What testing was considered but not performed or refused? (CT, X-rays, U/S, labs)? Why? @ -none What meds were considered but not given or refused? Why? @ -none Did you discuss the management of the patient with other professionals (professionals i.e. , PA, CORE SHAPER TOP, lab, RT, psych nurse, social science manager, production control analyst, teacher, tactical/mobile watch officer, welfare case worker)? Give summary @ -no Was smoking cessation discussed for >3mins.? @ -no Was critical care preformed (if so, how long)? @ -yes31 Were there social determinants of health that impacted care today? How? (Homelessness, low income, unemployed, alcoholism, drug addiction, transportation, low edu. Level, literacy, decrease access to med. care, alf, rehab)? @ -none Was there de-escalation of care discussed even if they declined (Discuss DNR or withdrawal of care, Hospice)? DNR status @ -no What co-morbidities impacted this encounter? (DM, HTN, Smoking, COPD, CAD, Cancer, CVA, ARF, Chemo, Hep., AIDS, mental health diagnosis, sleep apnea, morbid obesity)? @ -none Was patient admitted / discharged? Hospital course, mention meds given and route, prescriptions, significant lab abnormalities, going to OR and other perti nemary ann info. @ - 64 female to ER with chest pain chest pain severe left-sided left chest positive Díaz sign on exam. Patient will be admitted for chest pain observation Admitted Undiagnosed new problem with uncertain prognosis? @ -no Drug Therapy requiring intensive monitoring for toxicity (Heparin, Nitro, Insulin, Cardizem)? @ -no Were any procedures done? @ -no Diagnosis/symptom? @ -Chest pain Acute, or Chronic, or Acute on Chronic? @ -Acute Uncomplicated (without systemic symptoms) or Complicated (systemic symptoms)? @ -Complicated Side effects of treatment? @ -no Exacerbation, Progression, or Severe Exacerbation? @ -exacerbation Poses a threat to life or bodily function? How? (Chest pain, [place], [place], pneumonia, PE, COPD, DKA, ARF, appy, cholecystitis, CVA, Diverticulitis, Homicidal, Suicidal, threat to staff... and all critical care pts) @ -yes with chest pain Reevaluation #5: Differential Chest Pain: Stable Angina, Unstable Angina, STEMI, NSTEMI Aortic Dissection, Pneumothorax, Musculoskeletal, Esophageal Spasm GERD, Cholecystitis, Pancreatitis, Zoster, this is not meant to be an all-inclusive list. - Consultations Consultation #1: Spoke with [facility] who agrees to admit this patient Chest Pain MDM - MDM 64 female to ER with chest pain chest pain severe left-sided left chest positive Díaz sign on exam. Patient will be admitted for chest pain observation Critical Care Time Critical Care Time: Yes Total Critical Care Time: 31 Disposition Clinical Impression: Chest pain Disposition: ADMITTED IP TO THIS HOSP Condition: Serious Is patient prescribed a controlled substance at d/c from ED?: No Time of Disposition: 01:00
[2025-03-04 23:11] LABS: Basophils # (A) 0.07 10*3/uL (0.00-0.10); Basophils % (A) 1.1 %; Eosinophils # (A) 0.10 10*3/uL (0.04-0.35); Eosinophils % (A) 1.6 %; HCT 36.2 % (37.2-46.3); HGB 12.5 g/dL (12.0-15.0); Lymphocytes # (A) 2.22 10*3/uL (0.90-5.00); Lymphocytes % (A) 35.0 %; MCH 32.3 pg (27.0-32.0); MCHC 34.5 g/dL (32.0-37.0); MCV 93.5 fL (80.0-97.0); Monocytes # (A) 0.39 10*3/uL (0.20-1.00); Monocytes % (A) 6.1 %; Neutrophils # (A) 3.56 10*3/uL (1.80-7.70); Neutrophils % (A) 56.0 %; Platelet Count 232 10*3/uL (140-440); RBC 3.87 10*6/uL (4.10-5.20); RDW 13.0 % (11.5-14.5); WBC 6.35 10*3/uL (4.50-10.00)
[2025-03-04 23:23] LABS: ALT 55 U/L (4-34); AST 65 U/L (14-36); African American GFR (CKD) >90 (>60 ml/min/1.73 sqM); Albumin 4.3 g/dL (3.5-5.0); Alkaline Phosphatase 53 U/L (38-126); Anion Gap 9 mmol/L; Blood Urea Nitrogen 13 mg/dL (7-17); Calcium 9.4 mg/dL (8.4-10.2); Carbon Dioxide 25 mmol/L (22-30); Chloride 103 mmol/L (98-107); Glucose 78 mg/dL (74-99); Lipase 42 U/L (23-300); Magnesium 1.8 mg/dL (1.6-2.3); Non-African American GFR(CKD) >90 (>60 ml/min/1.73 sqM); Sodium 137 mmol/L (137-145); Total Protein 6.9 g/dL (6.3-8.2)
[2025-03-04 23:28] LABS: Potassium 4.5 mmol/L (3.5-5.1)
[2025-03-04 23:31] LABS: INR 0.9 (<1.2); NT-Pro-B-Type Natriuretic Pept 431 pg/mL; Partial Thromboplastin Time 24.8 sec (22.0-30.0); Prothrombin Time 10.3 sec (10.0-12.5)
[2025-03-05] MEDS: ONDANSETRON 4 MG/2 ML VIAL IVP STA (00:08)
[2025-03-05] MEDS: HYDROmorphone 1 MG/ML 1 ML SYRINGE IVP STA (00:11)
--- NOTE | 2025-03-05 00:14 | XR ---
EXAM: XR Chest, 2 Views CLINICAL HISTORY: ITS.REASON XR Reason: Chest Pain TECHNIQUE: Frontal and lateral views of the chest. COMPARISON: No relevant prior studies available. FINDINGS: Lungs: Unremarkable. No consolidation. Pleural space: Unremarkable. No pneumothorax. Heart: Unremarkable. No cardiomegaly. Mediastinum: Unremarkable. Bones/joints: Unremarkable. IMPRESSION: No consolidation.
[2025-03-05] MEDS ORDERED: MORPHINE SULFATE 4 MG/ML SYRINGE IV PRN (02:37)
[2025-03-05] MEDS ORDERED: NITROGLYCERIN SL TABS 0.4 MG TAB SUBLINGUAL PRN (02:37)
[2025-03-05] MEDS: ASPIRIN 81 MG PO STA (02:51)
--- NOTE | 2025-03-05 05:39 | CT ---
EXAM: CT Angiography Chest With Intravenous Contrast CLINICAL HISTORY: ITS.REASON CT Reason: PE TECHNIQUE: Axial computed tomographic angiography images of the chest with intravenous contrast. CTDI is 10.3 mGy and DLP is 231.3 mGy-cm. This CT exam was performed using one or more of the following dose reduction techniques: automated exposure control, adjustment of the mA and/or kV according to patient size, and/or use of iterative reconstruction technique. MIP reconstructed images were created and reviewed. COMPARISON: CT dated 10/01/2023. FINDINGS: Trachea: Mucus secretions are seen within the left lateral posterior aspect of the upper thoracic trachea and extending on the anterior aspect of the mid thoracic trachea. Pulmonary arteries: Unremarkable. No pulmonary embolism. Aorta: No acute findings. No thoracic aortic aneurysm. Lungs: 5.8 mm left upper lobe pulmonary nodule. Bilateral emphysematous changes. 4.5 mm medial right upper lobe pulmonary nodule. No consolidation. Pleural space: Unremarkable. No significant effusion. No pneumothorax. Heart: Coronary artery calcifications with mild chronic enlargement. No significant pericardial effusion. No evidence of RV dysfunction. Bones/joints: Degenerative changes are seen within the spine and shoulders. No acute fracture. No dislocation. Soft tissues: Unremarkable. Lymph nodes: Unremarkable. No enlarged lymph nodes. Kidneys and ureters: Hyperdense lesions are seen within the bilateral kidneys. Stomach and bowel: Nonspecific mid gastric wall thickening. This can be followed up with a GI consultation. IMPRESSION: 1. No acute findings seen within the chest. No pulmonary artery embolism. 2. Bilateral pulmonary nodules, recommend follow-up CT in 6 months time Per Fleischner criteria. 3. Possible solid lesions versus hemorrhagic cysts seen within the kidneys bilaterally. This can be followed with a nonemergent outpatient renal ultrasound.
[2025-03-05] MEDS ORDERED: CAFFEINE CITRATE 60 MG/3 ML VIAL IV PRN (08:09)
[2025-03-05] MEDS ORDERED: REGADENOSON 0.4 MG/5 ML SYRINGE IV PRN (08:09)
[2025-03-05] MEDS ORDERED: AMINOPHYLLINE 500 MG/20 ML VIAL IV PRN (08:09)
[2025-03-05] MEDS ORDERED: ACETAMINOPHEN TAB 325 MG TAB PO PRN (09:36)
[2025-03-05] MEDS: BUTALB/APAP/CAFF 50-325-40MG TAB PO PRN (10:11)
[2025-03-05] MEDS: ATORVASTATIN 80 MG TAB PO SCH (10:11)
--- NOTE | 2025-03-05 12:01 | P.CRDCN ---
History of Present Illness History of present illness: HISTORY OF PRESENT ILLNESS: This is a 64-year-old female with a past medical history significant for hypertension, hyperlipidemia, and hypothyroidism. Patient does not follow with a human resources mgr. We have been asked to see the patient in consultation for chest pain. Patient examined at the bedside. Patient states that she was coming up from [facility] yesterday when she started to have chest discomfort. She reports yesterday she was also having pain into her left arm and that the chest pain was worse with movement of the left arm. This morning she denies having any pain in the arm but still reports having some chest discomfort. She reports a family history of CAD in her father. She is a current cigarette smoker and states she has trying to quit. EKG revealed sinus mechanism with no signs of acute ischemia. Cardiac enzymes negative x 3. REVIEW OF SYSTEMS: At the time of my exam: CONSTITUTIONAL: Denies fever or chills. HEENT: Denies blurred vision, vision changes, or eye pain. Denies hemoptysis CARDIOVASCULAR: Denies chest pain. Denies orthopnea. Denies PND. Denies pal pitations RESPIRATORY: Denies shortness of breath. GASTROINTESTINAL: Denies abdominal pain. Denies nausea or vomiting. HEMATOLOGIC: Denies bleeding disorders. GENITOURINARY: Denies any blood in urine. SKIN: Denies pruitis. Denies rash. PHYSICAL EXAM: VITAL SIGNS: Reviewed. GENERAL: Well-developed in no acute distress. HEENT: Head is normocephalic. Pupils are equal, round. Sclerae anicteric. Mucous membranes of the mouth are moist. Neck supple. No JVD or thyromegaly LUNGS: Respirations even and unlabored. Lungs essentially clear to auscultation bilaterally. HEART: Regular rate and rhythm. S1 and S2 heard. ABDOMEN: Soft. Nondistended. Nontender. EXTREMITIES: Normal range of motion. No clubbing or cyanosis. Peripheral pulses intact. No lower extremity edema NEUROLOGIC: Awake and alert. Oriented x 3. ASSESSMENT: Chest pain Hypertension Hyperlipidemia Hypothyroidism Nicotine dependence PLAN: An acute coronary event has been ruled out Obtain 2D echo to assess cardiac structure and function Resume home cardiac medications Add aspirin 81 mg daily Patient scheduled to undergo Lexiscan stress test. However patient was apparently given a Pepsi and chicken nuggets by staff. Patient will be rescheduled for stress testing tomorrow N.p.o. at midnight Further recommendations pending patient course Nurse practitioner note has been reviewed by physician. Signing provider agrees with the documented findings, assessment, and plan of care documented by CANNON CREWMEMBER as a scribe. Past Medical History Past Medical History: Cancer, COPD, Hyperlipidemia, Musculoskeletal Disorder, Osteoarthritis (OA), Thyroid Disorder Additional Past Medical History / Comment(s): Chronic pain to neck and back, carpel tunnel, hx cervical cancer -no chemo or radiation, having MRI 04/23/21, Osteopenia. History of Any Multi-Drug Resistant Organisms: None Reported Past Surgical History: Tubal Ligation Additional Past Surgical History / Comment(s): Carpal tunnel surgey, partial thyroidectomy, hysteroscopy. Past Anesthesia/Blood Transfusion Reactions: No Reported Reaction Past Psychological History: Anxiety Smoking Status: Current every day smoker Past Alcohol Use History: None Reported Additional Past Alcohol Use History / Comment(s): Started smoking at age 14, TRYING TO QUIT, down to 4 cigarettes per day. Past Drug Use History: None Reported - Past Family History Mother Family Medical History: Cancer Additional Family Medical History / Comment(s): Skin Cancer. Father Family Medical History: Cancer Additional Family Medical History / Comment(s): Skin Cancer. Medications and Allergies Home Medications Medication Instructions Recorded Confirmed Type Simvastatin [Zocor] 40 mg PO HS 01/31/18 03/05/25 History Albuterol Inhaler [Ventolin Hfa 2 puff INHALATION RT-Q6H PRN 10/06/18 03/05/25 History Inhaler] Desvenlafaxine [Pristiq ER] 100 mg PO DAILY 11/15/21 03/05/25 History HYDROcodone/APAP 7.5-325MG [[place] 1 tab PO Q8H PRN 11/15/21 03/05/25 History 7.5-325] Ezetimibe [Zetia] 10 mg PO DAILY 10/01/23 03/05/25 History Levothyroxine Sodium [Synthroid] 75 mcg PO TUTHSA 10/01/23 03/05/25 History Levothyroxine Sodium [Synthroid] 150 mcg PO SUMOWEFR 10/01/23 03/05/25 History rOPINIRole HCL [Requip] 2 mg PO HS 10/01/23 03/05/25 History Butalb/APAP/Caff 50-325-40Mg 1 tab PO DAILY PRN 03/05/25 03/05/25 History [Fioricet 50-325-40] Desvenlafaxine Succinate [Pristiq 50 mg PO DAILY 03/05/25 03/05/25 History ER] Fluticasone/Umeclidin/Vilanter 1 puff INHALATION RT-DAILY 03/05/25 03/05/25 History [Trelegy Ellipta 200-62.5-25] Losartan [Cozaar] 50 mg PO DAILY 03/05/25 03/05/25 History Pregabalin [Lyrica] 50 mg PO BID 03/05/25 03/05/25 History rOPINIRole HCL [Requip] 2 mg PO HS PRN 03/05/25 03/05/25 History Allergies Allergy/AdvReac Type Severity Reaction Status Date / Time mupirocin [From Bactroban] Allergy Rash/Hives Verified 03/05/25 07:46 Physical Exam Vitals: Vital Signs Temp Pulse Pulse Resp BP BP Pulse Ox 03/05/25 06:11 97.7 F 77 16 153/74 95 03/05/25 05:51 81 18 127/83 97 03/05/25 02:51 97.9 F 80 19 142/75 95 03/05/25 00:05 134/117 03/04/25 23:59 73 20 97 03/04/25 22:32 98.4 F 81 18 185/94 97 Intake and Output 03/04/25 03/05/25 03/05/25 22:59 06:59 14:59 Other: Weight 59.874 kg 59.874 kg Results 03/04/25 22:59 03/04/25 22:59 Cardiac Enzymes 03/04/25 03/04/25 03/05/25 Range/Units 22:59 22:59 03:05 AST 65 H (14-36) U/L Troponin I <0.012 <0.012 (0.000-0.034) ng/mL 03/05/25 Range/Units 05:26 AST (14-36) U/L Troponin I <0.012 (0.000-0.034) ng/mL Coagulation 03/04/25 Range/Units 22:59 PT 10.3 (10.0-12.5) sec APTT 24.8 (22.0-30.0) sec CBC 03/04/25 Range/Units 22:59 WBC 6.35 (4.50-10.00) 10*3/uL RBC 3.87 L (4.10-5.20) 10*6/uL Hgb 12.5 (12.0-15.0) g/dL Hct 36.2 L (37.2-46.3) % Plt Count 232 (140-440) 10*3/uL Comprehensive Metabolic Panel 03/04/25 Range/Units 22:59 Sodium 137 (137-145) mmol/L Potassium 4.5 (3.5-5.1) mmol/L Chloride 103 (98-107) mmol/L Carbon Dioxide 25 (22-30) mmol/L BUN 13 (7-17) mg/dL Creatinine 0.48 L (0.52-1.04) mg/dL Glucose 78 (74-99) mg/dL Calcium 9.4 (8.4-10.2) mg/dL AST 65 H (14-36) U/L ALT 55 H (4-34) U/L Alkaline Phosphatase 53 (38-126) U/L Total Protein 6.9 (6.3-8.2) g/dL Albumin 4.3 (3.5-5.0) g/dL Current Medications Generic Name Dose Route Start Last Admin Trade Name Freq PRN Reason Stop Dose Admin Aspirin 325 mg 03/06/25 09:00 Aspirin 325 Mg Tab PO DAILY [facility] Atorvastatin Calcium 80 mg 03/05/25 09:00 Atorvastatin 80 Mg Tab PO DAILY [facility] Morphine Sulfate 4 mg 03/05/25 02:37 Morphine Sulfate 4 Mg/Ml Syringe IV Q4HR PRN Chest Pain Nitroglycerin 0.4 mg 03/05/25 02:37 Nitroglycerin Sl Tabs 0.4 Mg Tab SUBLINGUAL Q5M PRN Chest Pain Intake and Output 03/04/25 03/05/25 03/05/25 22:59 06:59 14:59 Other: Weight 59.874 kg 59.874 kg 03/04/25 22:59 03/04/25 22:59
--- NOTE | 2025-03-05 12:41 | CA ---
Transthoracic Echo Report Name: Jimena Pablo Age: 64 Gender: F : 1960 Exam Date: 03/05/2025 09:01 Exam Location: [facility] Ht (in): 60 Wt (lb): 132 Ordering Physician: Darby Boyd Attending/Referring Phys: [id number], Deb [employer] Pricer Charlene Armenta RDCS Procedure CPT: Indications: CP Cardiac Hx: Technical Quality: Good Contrast 1: Total Dose (mL): Contrast 2: Total Dose (mL): MEASUREMENTS (Male / Female) Normal Values 2D ECHO LV Diastolic Diameter PLAX 3.9 cm 4.2 - 5.9 / 3.9 - 5.3 cm LV Systolic Diameter PLAX 3.2 cm IVS Diastolic Thickness 0.9 cm 0.6 - 1.0 / 0.6 - 0.9 cm LVPW Diastolic Thickness 1.0 cm 0.6 - 1.0 / 0.6 - 0.9 cm LV Relative Wall Thickness 0.5 RV Internal Dim ED PLAX 2.3 cm LA Systolic Diameter LX 3.3 cm 3.0 - 4.0 / 2.7 - 3.8 cm LV Diastolic Volume MOD BP 39.3 cm??? 67 - 155 / 56 - 104 cm??? LV Systolic Volume MOD BP 9.4 cm??? 22 - 58 / 19 - 49 cm??? LV Ejection Fraction MOD BP 76.1 % >= 55 % LV Cardiac Index MOD BP 1396.5 cm???/min???m??? LV Diastolic Volume MOD 4C 41.8 cm??? LV Systolic Volume MOD 4C 10.5 cm??? LV Ejection Fraction MOD 4C 74.8 % LV Cardiac Index MOD 4C 1460.6 cm???/min???m??? LV Diastolic Length 4C 6.7 cm LV Systolic Length 4C 5.1 cm LV Diastolic Volume MOD 2C 33.9 cm??? LV Systolic Volume MOD 2C 8.1 cm??? LV Ejection Fraction MOD 2C 76.2 % LV Cardiac Index MOD 2C 1204.7 cm???/min???m??? LV Diastolic Length 2C 6.0 cm LV Systolic Length 2C 4.8 cm LA Volume 20.3 cm??? 18 - 58 / 22 - 52 cm??? LA Volume Index 12.7 cm???/m??? 16 - 28 cm???/m??? M-MODE Aortic Root Diameter MM 2.7 cm LA Systolic Diameter MM 3.2 cm LA Ao Ratio MM 1.2 AV Cusp Separation MM 1.9 cm DOPPLER MV Area PHT 3.0 cm??? Mitral E Point Velocity 84.7 cm/s Mitral A Point Velocity 92.8 cm/s Mitral E to A Ratio 0.9 MV Deceleration Time 253.6 ms FINDINGS Left Ventricle Left ventricular ejection fraction is estimated at 55-60 %. Normal left ventricular systolic function with no obvious regional wall motion abnormalities. Left ventricular cavity size normal. Left ventricular wall thickness normal. Right Ventricle Normal right ventricular size and function. Right ventricular systolic pressure within normal limits. Right Atrium Normal right atrial size. Left Atrium Normal left atrial size. Mitral Valve Structurally normal mitral valve. Trace mitral regurgitation. No mitral stenosis. Aortic Valve Trileaflet aortic valve. No aortic valve stenosis or regurgitation. Tricuspid Valve Structurally normal tricuspid valve. Trace tricuspid regurgitation. No tricuspid stenosis. Pulmonic Valve Structurally normal pulmonic valve. Trace pulmonic regurgitation. No pulmonic stenosis. Pericardium No pericardial or pleural effusion. Aorta Normal size aortic root and proximal ascending aorta. CONCLUSIONS Normal LV systolic function Previewed by: Dr. Brice Schaeffer MD (Electronically Signed) Final Date: 05 March 2025 12:40
--- NOTE | 2025-03-05 13:30 | P.HPIM ---
History of Present Illness 64-year-old complains of chest pain left side of the chest worse with movement of the left arm denied any lightheadedness shortness of breath, diaphoresis chest pain is nonpleuritic in nature not associated with food. Patient has elev ated D-dimer because of which patient had a CT angio of the chest which showed incidental finding of bilateral pulmonary nodules which will need follow-up CT in 6 months and an incidental finding of hemorrhagic cyst/solid cyst in the kidneys bilaterally. EKG did not show any acute ST-T wave changes, troponins were negative REVIEW OF SYSTEMS: All other systems are negative except those mentioned in the HPI PHYSICAL EXAMINATION: GENERAL: The patient is alert and oriented x3, not in any acute distress. Well developed, well nourished. HEENT: Pupils are round and equally reacting to light. EOMI. No scleral icterus. No conjunctival pallor. Normocephalic, atraumatic. No pharyngeal erythema. No thyromegaly. CARDIOVASCULAR: S1 and S2 present. No murmurs, rubs, or gallops. PULMONARY: Chest is clear to auscultation, no wheezing or crackles. ABDOMEN: Soft, nontender, nondistended, normoactive bowel sounds. No palpable organomegaly. MUSCULOSKELETAL: No joint swelling or deformity. EXTREMITIES: No cyanosis, clubbing, or pedal edema. NEUROLOGICAL: Gross neurological examination did not reveal any focal deficits. SKIN: No rashes. Labs and imaging data was reviewed by me. Assessment and plan -Chest pain rule out acute coronary syndromes patient undergo stress test tomorrow if there is negative patient will be discharged patient chest pain appears to be musculoskeletal - Incidental finding of pulmonary nodules and a solid cyst in the kidney for which patient will need follow-up with pulmonology and urology as an outpatient - Hyperlipidemia Hypothyroidism - Nicotine dependence: Counseling was provided DVT prophylaxis: Early ambulation Past Medical History Past Medical History: Cancer, COPD, Hyperlipidemia, Musculoskeletal Disorder, Osteoarthritis (OA), Thyroid Disorder Additional Past Medical History / Comment(s): Chronic pain to neck and back, carpel tunnel, hx cervical cancer -no chemo or radiation, having MRI 04/23/21, Osteopenia. History of Any Multi-Drug Resistant Organisms: None Reported Past Surgical History: Tubal Ligation Additional Past Surgical History / Comment(s): Carpal tunnel surgey, partial thyroidectomy, hysteroscopy. Past Anesthesia/Blood Transfusion Reactions: No Reported Reaction Past Psychological History: Anxiety Smoking Status: Current every day smoker Past Alcohol Use History: None Reported Additional Past Alcohol Use History / Comment(s): Started smoking at age 14, TRYING TO QUIT, down to 4 cigarettes per day. Past Drug Use History: None Reported - Past Family History Mother Family Medical History: Cancer Additional Family Medical History / Comment(s): Skin Cancer. Father Family Medical History: Cancer Additional Family Medical History / Comment(s): Skin Cancer. Medications and Allergies Home Medications Medication Instructions Recorded Confirmed Type Simvastatin [Zocor] 40 mg PO HS 01/31/18 03/05/25 History Albuterol Inhaler [Ventolin Hfa 2 puff INHALATION RT-Q6H PRN 10/06/18 03/05/25 History Inhaler] Desvenlafaxine [Pristiq ER] 100 mg PO DAILY 11/15/21 03/05/25 History HYDROcodone/APAP 7.5-325MG [[place] 1 tab PO Q8H PRN 11/15/21 03/05/25 History 7.5-325] Ezetimibe [Zetia] 10 mg PO DAILY 10/01/23 03/05/25 History Levothyroxine Sodium [Synthroid] 75 mcg PO TUTHSA 10/01/23 03/05/25 History Levothyroxine Sodium [Synthroid] 150 mcg PO SUMOWEFR 10/01/23 03/05/25 History rOPINIRole HCL [Requip] 2 mg PO HS 10/01/23 03/05/25 History Butalb/APAP/Caff 50-325-40Mg 1 tab PO DAILY PRN 03/05/25 03/05/25 History [Fioricet 50-325-40] Desvenlafaxine Succinate [Pristiq 50 mg PO DAILY 03/05/25 03/05/25 History ER] Fluticasone/Umeclidin/Vilanter 1 puff INHALATION RT-DAILY 03/05/25 03/05/25 History [Trelegy Ellipta 200-62.5-25] Losartan [Cozaar] 50 mg PO DAILY 03/05/25 03/05/25 History Pregabalin [Lyrica] 50 mg PO BID 03/05/25 03/05/25 History rOPINIRole HCL [Requip] 2 mg PO HS PRN 03/05/25 03/05/25 History Allergies Allergy/AdvReac Type Severity Reaction Status Date / Time mupirocin [From Bactroban] Allergy Rash/Hives Verified 03/05/25 07:46 Physical Exam Vitals: Vital Signs Temp Pulse Pulse Resp BP BP Pulse Ox 03/05/25 06:11 97.7 F 77 16 153/74 95 03/05/25 05:51 81 18 127/83 97 03/05/25 02:51 97.9 F 80 19 142/75 95 03/05/25 00:05 134/117 03/04/25 23:59 73 20 97 03/04/25 22:32 98.4 F 81 18 185/94 97 Intake and Output 03/04/25 03/05/25 03/05/25 22:59 06:59 14:59 Intake Total 118 Balance 118 Intake: Oral 118 Other: Weight 59.874 kg 59.874 kg Results CBC & Chem 7: 03/04/25 22:59 03/04/25 22:59 Labs: Abnormal Lab Results - Last 24 Hours (Table) 03/04/25 03/04/25 03/05/25 Range/Units 22:59 22:59 00:08 RBC 3.87 L (4.10-5.20) 10*6/uL Hct 36.2 L (37.2-46.3) % MCH 32.3 H (27.0-32.0) pg D-Dimer 0.99 H (<0.60) mg/L FEU Creatinine 0.48 L (0.52-1.04) mg/dL AST 65 H (14-36) U/L ALT 55 H (4-34) U/L Thrombosis Risk Factor Assmnt - Choose All That Apply Any of the Below Risk Factors Present?: Yes Each Factor Represents 1 point: Abnormal pulmonary function (COPD), Obesity (BMI >25) Other Risk Factors: Yes Each Risk Factor Represents 2 Points: Age 61-74 years Other congenital or acquired thrombophilia - If yes, enter type in comment: No Thrombosis Risk Factor Assessment Total Risk Factor Score: 4 Thrombosis Risk Factor Assessment Level: Moderate Risk
[2025-03-05] MEDS ORDERED: ALBUTEROL HFA INHALER INHALATION PRN (14:47)
[2025-03-05] MEDS: LEVOTHYROXINE 75 MCG TAB PO SCH (16:20)
[2025-03-05] MEDS: HYDROcodone/APAP 7.5-325MG 1 EACH TAB PO PRN (16:26)
[2025-03-05 19:11] LABS: Cholesterol 149.00 mg/dL (0.00-200.00); HDL Cholesterol 70.20 mg/dL (40.00-60.00); LDL Cholesterol,Calculated 68.1 mg/dL (0.0-131.0); Triglycerides 53.60 mg/dL (0.00-149.00); VLDL Calculation 10.72 mg/dL (5.00-40.00)
[2025-03-05] MEDS: SYMBICORT 160-4.5 MCG INHALER INHALATION SCH (19:57)
[2025-03-05] MEDS: PREGABALIN 50 MG CAP PO SCH (20:40)
[2025-03-06 02:00] VITALS: RESP 16
[2025-03-06] MEDS ORDERED: NON FORMULARY DRUG (Fluticasone/Umeclidin/Vilanter [Trelegy Ellipta 200-62.5-25] 1 EACH Bl INHALATION SCH (08:00)
[2025-03-06] MEDS ORDERED: REGADENOSON 0.4 MG/5 ML SYRINGE IV ONE (08:00)
[2025-03-06] MEDS: TIOTROPIUM 2.5 MCG INHALER INHALATION SCH (08:10)
[2025-03-06 08:15] VITALS: BP 154/97; PULSE 73; TEMP 97.9
[2025-03-06] MEDS: ASPIRIN 81 MG PO SCH (08:40)
[2025-03-06] MEDS: LOSARTAN 50 MG TAB PO SCH (08:41)
[2025-03-06] MEDS: DESVENLAFAXINE SUCCINATE 50 MG TAB.ER.24H PO SCH (08:41)
[2025-03-06] MEDS: EZETIMIBE 10 MG TAB PO SCH (08:41)
[2025-03-06] MEDS ORDERED: ASPIRIN 325 MG TAB PO SCH (09:00)
[2025-03-06] MEDS ORDERED: DESVENLAFAXINE 100 MG PO SCH (09:00)
--- NOTE | 2025-03-06 11:54 | CA ---
Lexiscan Nuclear Stress Test Report Name: Jimena Pablo Exam Date: 03/06/2025 10:13 Exam Location: [facility] Ht (in): 60 Wt (lb): 132 BSA: 1.56 Ordering Phys: Darby Boyd Referring Phys: ALEXSANDRA Technologist: MARTIN Age: 64 Gender: F : 1960 Procedure CPT: Indications: Reflex order-Stress test ICD-10 Codes: Patient History: Chest pain, MARIE and hyperlipidemaia Medications: Meds past 24 hrs: Pretest Chest Pain: STRESS TEST Lexiscan Protocol Exercise Duration (min:sec): 02:[address] Depressions (mm): Angina Score: May Score: Resting HR (bpm): 59 Peak HR (bpm): 94 Resting BP (mmHg): 138 / 85 Peak BP (mmHg): 142 / 80 MPHR: 154 Target HR: 131 % MPHR: 61 METS: 1.0 Total Dose: Peak Dose: Atropine: Double Product: 73829 BP Response: Stress Termination: INfusion complete Stress Symptoms: No chest pain or symptoms Stress Summary: ECG ANALYSIS Resting ECG: Stress ECG: CONCLUSIONS Nondiagnostic stress test Dr. Brice Schaeffer MD (Electronically Signed) Final Date: 06 March 2025 11:53
--- NOTE | 2025-03-06 12:27 | P.PN ---
Subjective HISTORY OF PRESENT ILLNESS: This is a 64-year-old female with a past medical history significant for hypertension, hyperlipidemia, and hypothyroidism. Patient does not follow with a seed yeast operator. We have been asked to see the patient in consultation for chest pain. Patient examined at the bedside. Patient states that she was coming up from [facility] yesterday when she started to have chest discomfort. She reports yesterday she was also having pain into her left arm and that the chest pain was worse with movement of the left arm. This morning she denies having any pain in the arm but still reports having some chest discomfort. She reports a family history of CAD in her father. She is a current cigarette smoker and states she has trying to quit. EKG revealed sinus mechanism with no signs of acute ischemia. Cardiac enzymes negative x 3. 03/06/2025 Patient examined this morning at bedside. Patient currently denies any chest pain or shortness of breath. Vital signs are stable. She is scheduled to undergo Lexiscan stress test today. Echocardiogram completed revealing ejection fraction 55 to 60% with no obvious regional wall motion abnormalities. PHYSICAL EXAM: VITAL SIGNS: Reviewed. GENERAL: Well-developed in no acute distress. HEENT: Head is normocephalic. Pupils are equal, round. Sclerae anicteric. Mucous membranes of the mouth are moist. Neck supple. No JVD or thyromegaly LUNGS: Respirations even and unlabored. Lungs essentially clear to auscultation bilaterally. HEART: Regular rate and rhythm. S1 and S2 heard. ABDOMEN: Soft. Nondistended. Nontender. EXTREMITIES: Normal range of motion. No clubbing or cyanosis. Peripheral pulses intact. No lower extremity edema NEUROLOGIC: Awake and alert. Oriented x 3. ASSESSMENT: Chest pain Hypertension Hyperlipidemia Hypothyroidism Nicotine dependence PLAN: Continue current cardiac medications Patient scheduled for Lexiscan stress test today If negative, she may be discharged home from a cardiac standpoint Nurse practitioner note has been reviewed by physician. Signing provider agrees with the documented findings, assessment, and plan of care documented by WAN SUPPORT SPECIALIST as a scribe. Objective - Vital Signs Vital signs: Vital Signs Temp 97.9 F 03/06/25 07:05 Pulse 73 03/06/25 07:05 Resp 16 03/06/25 07:05 BP 154/97 03/06/25 07:05 Pulse Ox 97 03/06/25 07:05 FiO2 Intake & Output 03/05/25 03/06/25 03/06/25 18:59 06:59 18:59 Intake Total 596 Balance 596 Intake: Oral 596 Other: Voiding Method Toilet Toilet # Voids 1 1 - Labs CBC & Chem 7: 03/04/25 22:59 03/04/25 22:59 Labs: Abnormal Lab Results - Last 24 Hours (Table) 03/05/25 Range/Units 05:26 HDL Cholesterol 70.20 H (40.00-60.00) mg/dL
--- NOTE | 2025-03-06 12:54 | NM ---
EXAMINATION TYPE: NM stress lexiscan cardiolite DATE OF EXAM: 03/06/2025 COMPARISON: NONE CLINICAL INDICATION: Female, 64 years old with history of CP; TECHNIQUE: After the intravenous administration of 10.66 mCi Tc 99m Sestamibi - Cardiolite resting S PECT images acquired 25.7 minutes post injection. The patient received 0.4mg Lexiscan, 35 mCi Tc 99m Sestamibi - Stress images obtained 45 minutes post injection FINDINGS: Review of stress and rest SPECT images demonstrates no distinct perfusion abnormality. Gated analysi s shows normal wall motion with a diminished estimated left ventricular ejection fraction of 67 %. T ID is upper limits of normal at 1.18. IMPRESSION: No scintigraphic evidence for reversible ischemia. The transient ischemic dilatation ratio is borderl ine at 1.18. If persistent high clinical suspicion for underlying ischemia, further evaluation can be considered to [facility], , 03/06/2025 12:52 PM
[2025-03-06] MEDS ORDERED: LEVOTHYROXINE 75 MCG TAB PO SCH (14:47)
--- NOTE | 2025-03-06 17:12 | P.DS ---
Providers Date of admission: 03/05/25 02:37 Attending physician: Nadya Alberto Consults: 03/05/25 02:37 Consult Physician Urgent Consulting Provider: Tye Okeefe Consult Reason/Comments: cp Do you want consulting provider notified?: Yes Primary care physician: Jacob Santamaria Hospital Course: Discharge Diagnosis: Chest pain Hypertension Hyperlipidemia Hypothyroidism Nicotine dependence Incidental finding of pulmonary nodule and solid renal cyst Hospital Course: 64-year-old complains of chest pain left side of the chest worse with movement of the left arm denied any lightheadedness shortness of breath, diaphoresis chest pain is nonpleuritic in nature not associated with food. Patient has elevated D-dimer because of which patient had a CT angio of the chest which showed incidental finding of bilateral pulmonary nodules which will need follow- up CT in 6 months and an incidental finding of hemorrhagic cyst/solid cyst in the kidneys bilaterally. EKG did not show any acute ST-T wave changes, troponins were negative While admitted to the hospital patient underwent echo which showed EF 55 to 60% with normal LV systolic function. Patient also underwent a Lexiscan stress test which showed no scintigraphic evidence for reversible ischemia, transient ischemic dilation ratio is borderline at 1.18. Results were discussed with the patient, at time of discharge patient was asymptomatic no longer having any chest pain. Patient was hemodynamically stable for discharge to home, advised follow-up with her PCP and sign erector in 1 week. Pt seen and examined at bedside: No significant overnight events, no current complaints of chest pain and no other complaints or concerns at this time. Vital signs reveiwed and stable: General: non toxic, no distress, appears at stated age, normal weight Derm: no unusual rashes/lesions, warm Head: atraumatic, normocephalic, symmetric Eyes: EOMI, no lid lag, anicteric sclera, pupils equal round reactive to light ENT: Nose and ears atraumatic Neck: No cervical lymphadenopathy, trachea midline, supple Mouth: no lip lesion, mucus membranes moist Cardiovascular: S1S2 reg, no murmur, positive dorsalis pedis pulse bilateral, no edema Lungs: Decreased air entry bilaterally, no rhonchi, no rales, no accessory muscle use Abdominal: soft, nontender to palpation, no guarding Ext: muscle strength 5 out of 5 in all 4 extremities grossly, no gross muscle atrophy, no contractures, Psych: Alert, oriented, appropriate affect A total of greater than 30 minutes were spent preparing this complex discarge summary. Patient was discharged on 03/06/2025. Patient Condition at Discharge: Serious Plan - Discharge Summary New Discharge Prescriptions: New Aspirin 81 mg PO DAILY #30 tab Continue Simvastatin [Zocor] 40 mg PO HS Albuterol Inhaler [Ventolin Hfa Inhaler] 2 puff INHALATION RT-Q6H PRN PRN Reason: Shortness Of Breath HYDROcodone/APAP 7.5-325MG [[place] 7.5-325] 1 tab PO Q8H PRN PRN Reason: Pain Desvenlafaxine [Pristiq ER] 100 mg PO DAILY Levothyroxine Sodium [Synthroid] 150 mcg PO SUMOWEFR Butalb/APAP/Caff 50-325-40Mg [Fioricet 50-325-40] 1 tab PO DAILY PRN PRN Reason: Headache Desvenlafaxine Succinate [Pristiq ER] 50 mg PO DAILY Fluticasone/Umeclidin/Vilanter [Trelegy Ellipta 200-62.5-25] 1 puff INHALATION RT-DAILY Pregabalin [Lyrica] 50 mg PO BID Ezetimibe [Zetia] 10 mg PO DAILY Levothyroxine Sodium [Synthroid] 75 mcg PO TUTHSA rOPINIRole HCL [Requip] 2 mg PO HS Losartan [Cozaar] 50 mg PO DAILY Discontinued rOPINIRole HCL [Requip] 2 mg PO HS PRN PRN Reason: RLS Discharge Medication List Simvastatin [Zocor] 40 mg PO HS 01/31/18 [History] Albuterol Inhaler [Ventolin Hfa Inhaler] 2 puff INHALATION RT-Q6H PRN 10/06/18 [History] Desvenlafaxine [Pristiq ER] 100 mg PO DAILY 11/15/21 [History] HYDROcodone/APAP 7.5-325MG [[place] 7.5-325] 1 tab PO Q8H PRN 11/15/21 [History] Ezetimibe [Zetia] 10 mg PO DAILY 10/01/23 [History] Levothyroxine Sodium [Synthroid] 75 mcg PO TUTHSA 10/01/23 [History] Levothyroxine Sodium [Synthroid] 150 mcg PO SUMOWEFR 10/01/23 [History] rOPINIRole HCL [Requip] 2 mg PO HS 10/01/23 [History] Butalb/APAP/Caff 50-325-40Mg [Fioricet 50-325-40] 1 tab PO DAILY PRN 03/05/25 [History] Desvenlafaxine Succinate [Pristiq ER] 50 mg PO DAILY 03/05/25 [History] Fluticasone/Umeclidin/Vilanter [Trelegy Ellipta 200-62.5-25] 1 puff INHALATION RT-DAILY 03/05/25 [History] Losartan [Cozaar] 50 mg PO DAILY 03/05/25 [History] Pregabalin [Lyrica] 50 mg PO BID 03/05/25 [History] Aspirin 81 mg PO DAILY #30 tab 03/06/25 [Rx] Follow up Appointment(s)/Referral(s): Yimi Woods MD [Medical Doctor] - 1 Week Jacob Santamaria DO [Primary Care Provider] - 1-2 days Patient Instructions/Handouts: Chest Pain (DC) Discharge Disposition: HOME SELF-CARE
[2025-03-06] MEDS ORDERED: ATORVASTATIN 20 MG TAB PO SCH (21:00)
== END 2025-03-06 15:14 | disposition home or self-care (01) ==
LOC: EC 22:31 → 6NMEDSUR 03-05 02:37
PROVIDERS: ADMIT Hospitalist; ATTEND Hospitalist
DX: R07.89 Other chest pain (principal); I10 Essential (primary) hypertension; J44.9 Chronic obstructive pulmonary disease, unspecified; E78.5 Hyperlipidemia, unspecified; E03.9 Hypothyroidism, unspecified; M79.602 Pain in left arm; R79.89 Other specified abnormal findings of blood chemistry; E66.9 Obesity, unspecified; Z68.25 Body mass index [BMI] 25.0-25.9, adult; F17.210 Nicotine dependence, cigarettes, uncomplicated; Z79.51 Long term (current) use of inhaled steroids; Z79.890 Hormone replacement therapy; Z79.899 Other long term (current) drug therapy; Z88.1 Allergy status to other antibiotic agents; Z71.6 Tobacco abuse counseling; Z82.49 Family history of ischemic heart disease and other diseases of the circulatory system
CPT/HCPCS: 96374; 96375; 99285; 36415 ×2; 94640 ×3; 93005; 93017; 93306; 85379; 83880; 80061; 80053; 83690; 83735; 84484 ×2; 85025; 85610; 85730; 83036; 71046; 71275; 78452; G0378 ×2; A9500; J2405; J1171; J2785; Q9967